=== PATIENT | female | born 1955 | race Caucasian/White ===

== ENCOUNTER → 2020-05-11 17:12 | Outpatient (CLI) | payer OTHER, MEDICAID, SELFPAY | PROVIDERS: Visit Provider Family Medicine | DX: E11.9 Type 2 diabetes mellitus without complications (principal); Z79.84 Long term (current) use of oral hypoglycemic drugs | CPT/HCPCS: 87086; 87088; 87186 ==

== ENCOUNTER → 2020-06-07 13:00 | Outpatient (CLI) | payer OTHER, MEDICAID, SELFPAY | PROVIDERS: PCP Family Medicine; Visit Provider Family Medicine | DX: R06.02 Shortness of breath (principal) ==

== ENCOUNTER 2020-06-07 13:37 | Emergency (ER) | payer MEDICARE, MEDICAID, SELFPAY ==
[2020-06-07 13:38] VITALS: BP 155/65; PULSE 89; RESP 23; TEMP 36.8; O2SAT 90; BMI 40.7
--- NOTE | 2020-06-07 13:39 | ECG_ITS ---
APPROVED REPORT Exam: Resting ECG HR:85 bpm ECG Measurements Heart Rate 85 AXES MS 118 P 59 QRSd 114 QRS 158 QT 394 T 45 QTc 468 <Conclusion> Electronic ventricular pacemaker Electronically signed by : Kishor Meek, 06/07/2020 18:36:04
--- NOTE | 2020-06-07 13:46 | XR_ITS ---
PROCEDURE: XR CHEST PORTABLE CLINICAL HISTORY: soa Shortness of air COMPARISON: No exams were available for comparison FINDINGS: Biventricular pacemaker with right atrial lead is present. There is a right subclavian MediPort catheter. The tip is in the region the SVC. The generator of the pacemaker overlies the left hilum obscuring this area. Normal heart size. Consolidation is present in the right lower lobe with increased density in the right infrahilar region. Degenerative changes are present in the shoulders. IMPRESSION: Right lower lobe pneumonia. Suggest following till clear as there is some nodular density in the right infrahilar region which could be related to masslike consolidation. Dictated by: Gerry Craig MD 06/07/2020 14:31 Gerry Craig MD in [place] 06/07/2020 14:31
--- NOTE | 2020-06-07 13:52 | HMH.EDGENADL ---
ED Disposition Clinical Impression: Near syncope Pneumonia Qualifiers: Pneumonia type: due to unspecified organism Laterality: right Lung location: lower lobe of lung Qualified Code(s): J18.9 - Pneumonia, unspecified organism Disposition: Home, Self-Care Condition on Discharge: Fair Instructions: DI for Syncope in Adults (Fainting), DI for Pneumonia -- Adult Additional Instructions: You have been evaluated for near syncope. Likely due to recent critical illness and pneumonia. Please continue taking antibiotics as prescribed. Stay hydrated. Rest. Follow-up with your primary care doctor. Return to the emergency department if you have any new or worsening symptoms. Referrals: Provider,Referral, [Primary Care Provider] - Time of Disposition: 14:59 - Critical Care Critical Care Time: No Attestation: On , the high probability of a clinically significant, sudden or life threatening deterioration of the following system(s) required my full and direct attention, intervention and personal management. The time I documented below is in addition to time spent performing reported procedures but includes the following listed in this critical care notation. Medical Decision Making - Medical Records Medical records reviewed: Yes: I reviewed the patient's medical records. - Dung Inquiry Pt receiving controlled substance: No Vital Signs: 06/07/20 13:38 Temperature 98.2 F Temperature Source Oral Pulse Rate [Right] 89 Respiratory Rate 23 Blood Pressure [Right Arm] 155/65 H Blood Pressure Mean [Right Arm] 95 02 Sat by Pulse Oximetry 90 L Oxygen Delivery Method Nasal Cannula Oxygen Flow Rate (LPM) 2 - Lab Data Lab Results 06/07/20 14:10: WBC 11.9 H, RBC 4.00 L, Hgb 13.2, Hct 40.7, MCV 101.7 H, MCH 33.0 H, MCHC 32.5, RDW 15.1, Plt Count 351, MPV 7.2 L, Neut % (Auto) 87.9 H, Lymph % (Auto) 10.6, [place] % (Auto) 0.9 L, Eos % (Auto) 0.5, Baso % (Auto) 0.1, Neut # (Auto) 10.4 H, Lymph # (Auto) 1.3, [place] # (Auto) 0.1, Eos # (Auto) 0.1, Baso # (Auto) 0.0, Total Counted 100, Neutrophils % (Manual) 83 H, Lymphocytes % (Manual) 15, Monocytes % (Manual) 1 L, Eosinophils % (Manual) 1, Platelet Estimate Normal, Anisocytosis 1+, Macrocytosis 1+ 06/07/20 14:10: Sodium 133 L, Potassium 4.9, Chloride 96 L, Carbon Dioxide 25, Anion Gap 16.9 H, BUN 32 H, Creatinine 1.20 H, Estimated Creat Clear 77, Estimated GFR 45 L, Est GFR ( Amer) 55 L, Glucose 277 H, Calcium 9.8, Total Bilirubin 0.8, AST 36, ALT 27, Alkaline Phosphatase 80, Troponin I < 0.01, Total Protein 7.3, Albumin 4.2, Globulin 3.1, Albumin/Globulin Ratio 1.4 06/07/20 14:10: Lactate 2.9 H 06/07/20 14:10: NT-Pro-B Natriuret Pep 122 06/07/20 14:37: Specimen Source Right brachial, O2 % 2l, ABG pH 7.55 H, ABG pCO2 25.5 L, ABG pO2 74.2 L, ABG HCO3 21.9 L, ABG Total CO2 22.6 L, ABG O2 Saturation 96, ABG Base Excess -0.5, Gerry Test Acceptable Result diagrams: 06/07/20 14:10 06/07/20 14:10 Orders (Tests/Meds): ORDERS Category Date Time Status Troponin I Q3H Lab 06/07/20 17:00 Ordered Troponin I Q3H Lab 06/07/20 20:00 Ordered Blood Culture Stat Micro 06/07/20 14:10 Received ABG [Arterial Blood Gas] Stat RT 06/07/20 14:15 Ordered ECG Request by /Mattie Stat Y 06/07/20 13:45 Ordered - ECG Data Tracing #1 Ventricularly paced rhythm with rate of 85 bpm. QRS 114, QTc 468. No significant abnormality. Medical Decision Narrative: In summary this is a 64-year-old female presenting to the emergency department after a near syncopal episode. Patient is clinically stable on arrival, O2 sat 90% on room air. Placed on home 2L. No tachycardia or tachypnea. Says she is feeling much better than she was at radiology. Plan to obtain CBC, CMP, chest x-ray, EKG, troponin profile. Laboratory results remarkable for elevated white count at 14 K, neutrophil predominance. Other laboratory results are generally unremarkable. EKG shows paced rhythm. Troponin not elevated.
[2020-06-07 14:27] LABS: Basophils % 0.1 % (0.1-2.0); Eosinophils # 0.1 K/mm3 (0.0-0.4); Eosinophils % 0.5 % (0.1-12.0); Hematocrit 40.7 % (37.0-47.0); Hemoglobin 13.2 g/dL (12.2-16.2); Lymphocytes # 1.3 K/mm3 (0.7-4.5); Lymphocytes % 10.6 % (10-50); Mean Corpuscular HGB Conc 32.5 g/dL (31.8-35.4); Mean Corpuscular Volume 101.7 fl (81-99); Mean Platelet Volume 7.2 fl (7.4-10.4); Monocytes # 0.1 K/mm3 (0.1-1.0); Monocytes % 0.9 % (1.7-9.3); Neutrophils # 10.4 K/mm3 (1.8-7.8); Neutrophils % 87.9 % (37.0-80.0); Platelet Count 351 K/mm3 (142-424); Red Cell Distribution Width 15.1 % (11.5-17.5); White Blood Count 11.9 K/mm3 (4.8-10.8)
[2020-06-07 14:28] LABS: MANUAL DIFFERENTIAL MANUAL DIFFERENTIAL (MANUAL DIFF)
[2020-06-07 14:36] LABS: Chloride 96 mmol/L (98-107); Potassium 4.9 mmoL/L (3.5-5.1); Sodium 133 mmol/L (136-145)
[2020-06-07 14:38] LABS: Blood Urea Nitrogen 32 mg/dl (7-17); Creatinine Clearance Estimated 77 mL/min (50-200); Estimated Glomerular Filt Rate 45 ml/min (>60); GFR (African American) 55 ML/MIN (>60)
[2020-06-07 14:39] LABS: ABG Base Excess -0.5 mmol/L (-2.4-2.3); ABG HCO3 21.9 mmhg (22.0-26.0); ABG Oxygen Saturation 96 % (90-100); ABG PCO2 25.5 mmhg (35.0-45.0); ABG PO2 74.2 mmhg (80-100); ABG TCO2 22.6 mmhg (23-27)
[2020-06-07 14:39] LABS: Alanine Aminotransferase 27 U/L (12-78); Albumin Level 4.2 g/dl (3.5-5.0); Albumin/Globulin Ratio 1.4 (1.1-1.8); Alkaline Phosphatase 80 U/L (38-126); Anion Gap 16.9 mEq/L (5-15); Aspartate Amino Transferase 36 U/L (14-36); Bilirubin,Total 0.8 mg/dl (0.2-1.3); Calcium 9.8 mg/dl (8.4-10.2); Carbon Dioxide 25 mmol/L (22.0-30.0); Globulin 3.1 g/dL (1.3-3.2); Glucose 277 mg/dl (74-100); Total Protein,Serum 7.3 g/dl (6.3-8.2)
[2020-06-07 14:40] LABS: Anisocytosis 1+; Eosinophils % 1 % (0-3); Lactic Acid 2.9 mmol/L (0.7-2.1); Lymphocytes % 15 % (10-50); Macrocytosis 1+; Monocytes % 1 % (2-9); Neutrophils % 83 % (42-76); Platelet Estimate Normal; Total Cells Counted 100
[2020-06-07 14:41] LABS: Allen's Test Acceptable; Oxygen 2L %; Source Right Brachial
[2020-06-07 14:42] LABS: ABG PH 7.55 mmol/L (7.35-7.45)
[2020-06-07 14:49] LABS: NT Pro Brain Natriuretic Pep. 122 pg/mL (0-125)
[2020-06-07 14:51] LABS: Troponin I < 0.01 ng/ml (0.00-0.034)
--- NOTE | 2020-06-07 15:14 | PC.NURSE ---
speaking to dr barry
[2020-06-07 15:39] VITALS: BP 117/65; PULSE 87; RESP 17; TEMP 36.7; O2SAT 93
[2020-06-07 18:23] LABS: Reflex Lactic Add Lactic Reflex
== END 2020-06-07 15:45 | disposition home or self-care (01) ==
PROVIDERS: Emergency Provider Emergency Medicine
DX: J18.9 Pneumonia, unspecified organism (principal); I10 Essential (primary) hypertension; E78.5 Hyperlipidemia, unspecified; I50.9 Heart failure, unspecified; E11.9 Type 2 diabetes mellitus without complications; Z99.81 Dependence on supplemental oxygen; Z79.899 Other long term (current) drug therapy; Z95.0 Presence of cardiac pacemaker; Z90.09 Acquired absence of other part of head and neck; Z90.49 Acquired absence of other specified parts of digestive tract
CPT/HCPCS: 71045; 80053; 82803; 83605; 83880; 84484; 85007; 85025; 87040; 93005; 99283; J1642

== ENCOUNTER 2020-06-08 14:40 | Observation (INO) | payer MEDICARE, MEDICAID, SELFPAY ==
--- NOTE | 2020-06-08 15:13 | PC.NURSE ---
Pt arrived to the floor at this time
[2020-06-08 15:32] VITALS: BP 110/59; PULSE 86; RESP 19; TEMP 37.3; O2SAT 90; BMI 45.6
[2020-06-08 15:49] VITALS: BP 115/62; PULSE 82; RESP 18; TEMP 37.2; O2SAT 90
--- NOTE | 2020-06-08 16:00 | XR_ITS ---
PROCEDURE: XR CHEST 2V CLINICAL HISTORY: pneumonia COMPARISON: CR XR CHEST PORTABLE from 06/07/2020 FINDINGS: The heart size is normal. There is a biventricular pacemaker present right atrial lead from left subclavian approach. There is consolidation in the lower lobe consistent with pneumonia not significantly changed. There is increased density in the left perihilar region which may be related to pneumonia. This is mostly obscured by the pacemaker generator. There is coarsening of the lung markings which could be related to superimposed chronic interstitial changes. Right subclavian MediPort catheter is present with the tip region the SVC No acute bony abnormalities. IMPRESSION: Overall no change in the bilateral pneumonia with chronic interstitial changes Dictated by: Gerry Craig MD 06/09/2020 05:54 Gerry Craig MD in [place] 06/09/2020 05:54
--- NOTE | 2020-06-08 17:24 | HMH.PULMCON ---
*Admission Date: 06/08/20 *Reason for consult:: Acute hypoxic respiratory failure *History of present illness: is a 63-year-old female with previous history of left-sided breast cancer, completed chemotherapy in January 2020, erosive osteoarthritis, back pain referred from primary clinic to get admitted because patient is having acute worsening respiratory failure. Further according patient stated she started having this breathing issues a month ago and was recently admitted to [facility] and she was there for almost 2 weeks during which she received IV antibiotics and essentially discharged home with doxycycline which she completed last Sunday. Patient felt better during the completion of antibiotics however she started getting worse to a point where she cannot form her activities of daily living. Patient complains of cough which is mostly dry without any productive phlegm. Patient stated her breathing gradually got worse. Patient also stated that she had a UTI and she hospital setting , and sedentary for almost a week. Patient is also on chronic oxygen therapy at 3 L at home. [facility] History Medical History: Reports:: Anxiety, Arrhythmia, Cancer, Congestive Heart Failure, Diabetes Mellitus Type 2, Home Oxygen, Hyperlipidemia, Hypertension, Internal Pacemaker Denies:: Diabetes Mellitus Type 1 *Have you ever received a pneumonia vaccine?: Yes *Have you received a flu vaccine this season?: No Other Medical History: Reports: Chemotherapy, Radiation Therapy Laterality Cases: Bilateral: Arthroscopy Knee, Tonsillectomy Other Surgeries: Yes: Cancer Surgery, Cholecystectomy, Pacemaker Amputation: No Fractures: No - *Social History Smoking Status: Never smoker Alcohol Intake: never Substance Use Type: denies use *Occupational Status:: other *Travel in the last 8 weeks: None - Psychiatric History Pschychiatric History:: Reports:: Anxiety Family Hx:: Cancer [facility] Pulmonology ROS - Review of Systems Review of systems:: unable to obtain, pertinent systems reviewed and negative unless documented below - Constitutional Reports body ache(s) - *Cardiovascular Reports excessive sweating, Reports shortness of breath, Reports generalized swelling, Reports leg swelling - *Respiratory Respiratory: Yes shortness of breath, Yes cough, Yes non-productive cough - *Gastrointestinal Gastrointestingal: Reports: system reviewed and no additional complaints, except as docu - *Musculoskeletal Musculoskeletal: Reports system reviewed and no additional complaints, except as docu Meds Home Medications Medication Instructions Recorded Confirmed Type allopurinol 300 mg tablet 300 mg PO DAILY 04/19/20 06/08/20 History aspirin 81 mg tablet,delayed 81 mg PO DAILY 04/19/20 06/08/20 History release carvedilol 25 mg tablet 25 mg PO BID 04/19/20 06/08/20 History lidocaine 2.5 %-prilocaine 2.5 % See Rx Instructions TOPICAL 04/19/20 06/08/20 Rx cream and lidocaine HCl 3.88 % .COMPLEX #175 g cream lidocaine HCl 2.75 % lotion 1 applic TOPICAL BID 04/19/20 06/08/20 History lisinopril 5 mg tablet 5 mg PO DAILY 04/19/20 06/08/20 History lorazepam 0.5 mg tablet 0.5 mg PO DAILY #30 tab 04/19/20 06/08/20 Rx pantoprazole 40 mg tablet,delayed 40 mg PO BID tab 04/19/20 06/08/20 History release potassium chloride 10 mEq 20 meq PO QID cap 04/19/20 06/08/20 History capsule,extended release torsemide 10 mg tablet 10 mg PO DAILY 04/19/20 06/08/20 History cetirizine 10 mg tablet 5 mg PO DAILY PRN 04/27/20 06/08/20 History metformin 500 mg tablet 500 mg PO BID #60 tab 04/27/20 06/08/20 Rx spironolactone 25 mg tablet 25 mg PO DAILY 04/27/20 06/08/20 History doxycycline hyclate 100 mg capsule 100 mg PO BID #14 cap 06/07/20 06/08/20 Rx oxycodone-acetaminophen 5 mg-325 1 tab PO Q6H PRN #120 tab 06/07/20 06/08/20 Rx mg tablet prednisone 20 mg tablet 10 mg PO BID tab 06/07/20 06/08/20 History Allergies Allergy/AdvReac Type Severity R
[2020-06-08 17:28] LABS: Basophils % 0.1 % (0.1-2.0); Eosinophils # 0.1 K/mm3 (0.0-0.4); Eosinophils % 0.6 % (0.1-12.0); Hematocrit 38.3 % (37.0-47.0); Hemoglobin 12.6 g/dL (12.2-16.2); Lymphocytes # 1.2 K/mm3 (0.7-4.5); Lymphocytes % 11.7 % (10-50); Mean Corpuscular HGB Conc 32.8 g/dL (31.8-35.4); Mean Corpuscular Hemoglobin 32.5 pg (27.0-31.2); Mean Corpuscular Volume 99.1 fl (81-99); Mean Platelet Volume 7.7 fl (7.4-10.4); Monocytes # 0.2 K/mm3 (0.1-1.0); Neutrophils # 8.6 K/mm3 (1.8-7.8); Neutrophils % 85.6 % (37.0-80.0); Platelet Count 334 K/mm3 (142-424); Red Blood Count 3.86 M/mm3 (4.20-5.40); Red Cell Distribution Width 14.9 % (11.5-17.5); White Blood Count 10.1 K/mm3 (4.8-10.8)
[2020-06-08 17:29] LABS: Chloride 95 mmol/L (98-107); Sodium 133 mmol/L (136-145)
[2020-06-08 17:30] LABS: ABG Base Excess -1.8 mmol/L (-2.4-2.3); ABG HCO3 22.2 mmhg (22.0-26.0); ABG Oxygen Saturation 94 % (90-100); ABG PH 7.45 mmol/L (7.35-7.45); ABG PO2 68.2 mmhg (80-100); ABG TCO2 23.2 mmhg (23-27)
[2020-06-08 17:32] LABS: Alanine Aminotransferase 26 U/L (12-78); Albumin Level 4.1 g/dl (3.5-5.0); Albumin/Globulin Ratio 1.4 (1.1-1.8); Alkaline Phosphatase 62 U/L (38-126); Aspartate Amino Transferase 43 U/L (14-36); Bilirubin,Total 0.6 mg/dl (0.2-1.3); Blood Urea Nitrogen 45 mg/dl (7-17); Calcium 9.9 mg/dl (8.4-10.2); Carbon Dioxide 23 mmol/L (22.0-30.0); Creatinine Clearance Estimated 40 mL/min (50-200); Estimated Glomerular Filt Rate 38 ml/min (>60); GFR (African American) 46 ML/MIN (>60); Glucose 244 mg/dl (74-100); Total Protein,Serum 7.1 g/dl (6.3-8.2)
[2020-06-08 17:35] LABS: Allen's Test Acceptable; Oxygen 4L %; Source Right Brachial
[2020-06-08 17:44] LABS: MANUAL DIFFERENTIAL MANUAL DIFFERENTIAL (MANUAL DIFF)
[2020-06-08 17:45] LABS: Magnesium 1.8 mg/dl (1.6-2.3)
[2020-06-08 17:46] LABS: Phosphorous 4.5 mg/dl (2.5-4.5)
--- NOTE | 2020-06-08 18:35 | HMH.HP ---
*Admission Date: 06/08/20 *Chief complaint: pneumonia with increasing dyspnea *History of present illness: Patient is well-known to me from previous practice, has multiple chronic comorbid issues including breast cancer and significant erosive osteoarthritis. She is also obese. She had spent about 7 days inpatient at [facility] in [place] for dyspnea. She has a significant cardiomyopathy, and at the point of her maximal decompensation had an EF around 15%. She was treated with a classic regimen of Coreg, Aldactone, and OMAIRA inhibitors and responded nicely to these treatments. She is actively followed by a trash collector supervisor in [facility] as well as the [facility] at . An AICD was placed at the point of her maximal decompensation. She made slow and steady improvement. Her admission at [facility] was prompted by dyspnea. She feels that she was overly diuresed, and became markedly weakened. She was also found to have a pneumonia while there, pulmonary was consulted there, and she was placed on a regimen including doxycycline. She was discharged on p.o. doxycycline. I saw the patient yesterday for ongoing dyspnea. A chest film demonstrated an infiltrative process on the right side. There was also a suggestion of a nodular opacity. She had been on a tapering dose of p.o. prednisone. In the office yesterday I gave her 1 g of Rocephin IM, 120 mg of Depo-Medrol IM, and continued the doxycycline for another week. I sent her to the hospital here for chest x-rays and lab work, and during the process of getting the chest x-ray she became markedly weak. She was then seen and evaluated in the emergency room. Brain natruretic peptide was unremarkable, ABGs showed a slight diminished PO2 without CO2 retention. She was sent home for ongoing medical management. Despite these measures she continued to be markedly dyspneic, and presented again today to my office with worsening symptoms. The decision was then made to admit her for further evaluation and treatment. Patient has a history of cancer of the left breast. Upon resection she had several nodes that were positive. A subsequent resection was performed. She received XRT to the left, along with a partial course of chemo which she tolerated poorly. In the office I heard crackles at her right base and mid field which corresponded to findings on the x-ray. She has been taking oxygen at home at 3 L/min. Due to her dyspnea and markedly weakened state we made the decision to admit her for more definitive treatment and further evaluation. [facility] History Medical History: Reports:: Anxiety, Arrhythmia, Cancer, Congestive Heart Failure, Diabetes Mellitus Type 2, Home Oxygen, Hyperlipidemia, Hypertension, Internal Pacemaker Denies:: Diabetes Mellitus Type 1 *Have you ever received a pneumonia vaccine?: Yes *Have you received a flu vaccine this season?: No Other Medical History: Reports: Chemotherapy, Radiation Therapy Laterality Cases: Bilateral: Arthroscopy Knee, Tonsillectomy Other Surgeries: Yes: Cancer Surgery, Cholecystectomy, Pacemaker Amputation: No Fractures: No - *Social History Smoking Status: Never smoker Alcohol Intake: never Substance Use Type: denies use *Occupational Status:: other *Travel in the last 8 weeks: None - Psychiatric History Pschychiatric History:: Reports:: Anxiety Family Hx:: Cancer Review of Systems - Constitutional Reports body ache(s), Reports fatigue, Reports weakness - Eyes Denies change in vision - ENT Denies abnormal hearing - *Cardiovascular Reports leg pain with activity, Reports shortness of breath with activity, Reports shortness of breath causing sudden awakening - *Respiratory Reports chest congestion, Reports cough - *Gastrointestinal Denies abdominal pain - *Genitourinary Denies painful urination - *Musculoskeletal Reports abnormal walking, Reports joint pain, Reports decreased muscle mass, Reports back pain, Reports joint s
[2020-06-08 18:45] LABS: Lymphocytes % 12 % (10-50); Monocytes % 2 % (2-9); Neutrophils % 86 % (42-76); Platelet Estimate Normal; RBC Morphology Normal; Total Cells Counted 100
[2020-06-08 19:22] LABS: Coronavirus 19 IgG Antibody Negative (Negative); Coronavirus 19 IgM Antibody Negative (Negative)
[2020-06-08 19:47] LABS: Adenovirus,PCR Not Detected (NotDetected); Bordetella Pertussis Not Detected (NotDetected); Chlamydophila Pneumoniae, PCR Not Detected (NotDetected); Coronavirus 229E Not Detected (NotDetected); Coronavirus NL63 Not Detected (NotDetected); Coronavirus OC43 Not Detected (NotDetected); Coronovirus HKU1,PCR Not Detected (NotDetected); Human Metapneumovirus Not Detected (NotDetected); Influenza A, PCR Not Detected (NotDetected); Influenza AH1, 2009 Not Detected (NotDetected); Influenza AH1, PCR Not Detected (NotDetected); Influenza AH3,PCR Not Detected (NotDetected); Influenza B, PCR Not Detected (NotDetected); Mycoplasma Pneumoniae, PCR Not Detected (NotDetected); Parainfluenza 1, PCR Not Detected (NotDetected); Parainfluenza 2, PCR Not Detected (NotDetected); Parainfluenza 3, PCR Not Detected (NotDetected); Parainfluenza 4, PCR Not Detected (NotDetected); Respiratory Syncytial Virus Not Detected (NotDetected); Rhinovirus/Enterovirus Not Detected (NotDetected)
[2020-06-08 20:00] VITALS: BP 121/75; PULSE 91; RESP 20; TEMP 36.9; O2SAT 98
--- NOTE | 2020-06-08 20:41 | PC.NURSE ---
Pt alert and oriented and able to make needs known. Pt continues on 4 L NC. Have accessed port in R chest per sterile technique and started IV in RFA. Labs sent to lab with IV stick and some had to be redrawn with port access. IV abt given per dec. VSS. CB in reach.
--- NOTE | 2020-06-08 22:41 | PC.NURSE ---
1949: Pt taken out of isolation precautions for pending covid results. IgG and IgM noted both negative at this time. Standard precautions are now in place. Visitor in room. 2002: Spoke with Ramone MOYER at this time. Irving bellamy brought to this RN's attention that pt could not have both CT angio and CT chest with contrast. Also pt's GFR noted at 38 and pt is a diabetic, therefore Irving bellamy noted pt is not a good candidate for contrast at this time. ordered CT chest w/o contrast only. All other orders to be d/c. 2025: Spoke with Ramone MOYER again at this time to make aware that pt refused to do the chest CT, stating she can not physically handle lying on the CT scanner with her back. Pt also states she will do a chest XR. okay with obtaining a chest XR at this time.
[2020-06-09] VITALS (9 sets, daily range): BP systolic 94–128; BP diastolic 50–72; PULSE 73–90; RESP 16–22; TEMP 36.6–37.1; O2SAT 90–98; BMI 36.5
--- NOTE | 2020-06-09 03:56 | PC.NURSE ---
Pt is alert and oriented x4. Perrla noted bilaterally. Hand business risk consultant equal in strength. Cap refill < 3 seconds. Pt has tolerated 4 lnc well this shift with no complaints of dyspnea. O2 sats noted wnl, 91-93% this am. Bilateral lungs noted clear t/o upon auscultation. Tolerates diet well. No N/V/D. Remains in standard precautions w/n negative pressure room. URP negative. This RN was able to infuse medications into port of right upper chest, but unable to draw blood from port for lab work. Pt tolerated lab draw stick well. Received from day shift report that pt was refusing all lab draws due to not wanting to be stuck numerous times. Pt also refused CT this shift, MD aware. CXR was obtained, results pending. Sputum collected and sent to lab, results pending. VSS. Hypotention noted this morning, 96/45. Pt stated her baseline B/P is low. Remains asymptomatic. Remains safe. Call light within reach. Will continue to monitor.
--- NOTE | 2020-06-09 06:46 | PC.NURSE ---
Encouraged use of incentive spirometer this am Q1h while awake. Pt verbalized understanding.
--- NOTE | 2020-06-09 07:30 | P.CONPHA_ITS ---
[facility] Pharmacy VTE Monitoring - Patient Demographics Admission date: 06/08/20 Report Date: 06/09/20 Time: 07:30 Allergies/Adverse Reactions: Patient Allergies sodium acid pyrophosphate Allergy (Severe, Verified 06/08/20 13:46) Chest Pain ondansetron [From Zofran] Allergy (Mild, Verified 06/08/20 13:46) Height: 1.73 m Weight: 109.401 kg - VTE Risk Labs: VTE Related Lab Results Hgb 12.6 g/dL (12.2-16.2) 06/08/20 17:00 Hct 38.3 % (37.0-47.0) 06/08/20 17:00 Plt Count 334 K/mm3 (142-424) 06/08/20 17:00 BUN 45 mg/dl (7-17) H D 06/08/20 17:00 Creatinine 1.40 mg/dl (0.52-1.04) H 06/08/20 17:00 Estimated Creat Clear 40 mL/min (50-200) 06/08/20 17:00 - Prophylaxis VTE Prophylaxis Ordered?: Yes Types of VTE Prophylaxis: TEDS Knee High Location of Applied Device: Bilateral Lower Extremeties - VTE Diagnosis Confirmed Treatment or plan recommended: Continue Current Treatment
--- NOTE | 2020-06-09 07:36 | PC.NURSE ---
Pt states she is not a diabetic and does not understand why she is being taken off a regular diet and placed on a diabetic diet this am.
--- NOTE | 2020-06-09 10:18 | HMH.PHACONS ---
- Pharmacy Consult Date: 06/09/20 Time: 10:19 Referring provider: DR. PHOENIX/DR. LAZAR Reason for Consult:: VANCOMYCIN DOSING Allergies and ADEs:: Allergies Allergy/AdvReac Type Severity Reaction Status Date / Time sodium acid pyrophosphate Allergy Severe Chest Pain Verified 06/08/20 13:46 ondansetron [From Zofran] Allergy Mild Verified 06/08/20 13:46 Home Medications:: Home Medications Medication Instructions Recorded Confirmed Type allopurinol 300 mg tablet 300 mg PO DAILY 04/19/20 06/08/20 History aspirin 81 mg tablet,delayed 81 mg PO DAILY 04/19/20 06/08/20 History release carvedilol 25 mg tablet 25 mg PO BID 04/19/20 06/08/20 History lidocaine HCl 2.75 % lotion 1 applic TOPICAL NEEDED PRN 04/19/20 06/08/20 History lisinopril 5 mg tablet 5 mg PO BID 04/19/20 06/08/20 History pantoprazole 40 mg tablet,delayed 10 mg PO BID tab 04/19/20 06/08/20 History release potassium chloride 10 mEq 20 meq PO QID cap 04/19/20 06/08/20 History capsule,extended release torsemide 10 mg tablet 10 mg PO DAILY 04/19/20 06/08/20 History spironolactone 25 mg tablet 12.5 mg PO DAILY 04/27/20 06/08/20 History oxycodone-acetaminophen 5 mg-325 1 tab PO Q6H PRN #120 tab 06/07/20 06/08/20 Rx mg tablet prednisone 20 mg tablet 10 mg PO BID tab 06/07/20 06/08/20 History Doxycycline Hyclate [Vibramycin 100 mg PO BID 06/08/20 06/08/20 History 100mg Capsule] LORazepam [Lorazepam] 1 mg PO DAILY PRN 06/08/20 06/08/20 History Metformin HCl [Glucophage] 500 mg PO BID 06/08/20 06/08/20 History Mometasone/Formoterol [Dulera 100 100 mcg PO QID 06/08/20 06/08/20 History Mcg-5 Mcg Inhaler] Multivit-Min/Iron Fum/Folic AC 1 each PO DAILY 06/08/20 06/08/20 History [Latek-Fkjthno-Plzxxubn Tablet] Height: 1.73 m Weight: 109.401 kg Laboratory Results:: Laboratory Results - last 24 hr 06/08/20 17:00: WBC 10.1, RBC 3.86 L, Hgb 12.6, Hct 38.3, MCV 99.1 H, MCH 32.5 H, MCHC 32.8, RDW 14.9, Plt Count 334, MPV 7.7, Neut % (Auto) 85.6 H, Lymph % (Auto) 11.7, [place] % (Auto) 2.0, Eos % (Auto) 0.6, Baso % (Auto) 0.1, Neut # (Auto) 8.6 H, Lymph # (Auto) 1.2, Bradley # (Auto) 0.2, Eos # (Auto) 0.1, Baso # (Auto) 0.0, Total Counted 100, Neutrophils % (Manual) 86 H, Lymphocytes % (Manual) 12, Monocytes % (Manual) 2, Platelet Estimate Normal, RBC Morphology Normal 06/08/20 17:00: Sodium 133 L, Potassium 5.0, Chloride 95 L, Carbon Dioxide 23, Anion Gap 20.0 H, BUN 45 H D, Creatinine 1.40 H, Estimated Creat Clear 40, Estimated GFR 38 L, Est GFR ( Amer) 46 L, Glucose 244 H, Calcium 9.9, Total Bilirubin 0.6, AST 43 H, ALT 26, Alkaline Phosphatase 62, Total Protein 7.1, Albumin 4.1, Globulin 3.0, Albumin/Globulin Ratio 1.4 06/08/20 17:00: Magnesium 1.8 06/08/20 17:00: Phosphorus 4.5 06/08/20 17:29: Specimen Source Right brachial, O2 % 4l, ABG pH 7.45, ABG pCO2 33.0 L, ABG pO2 68.2 L, ABG HCO3 22.2, ABG Total CO2 23.2, ABG O2 Saturation 94, ABG Base Excess -1.8, Gerry Test Acceptable 06/08/20 18:10: SARS-CoV-2 IgG Ab (Rapid) Negative, SARS-CoV-2 IgM Ab (Rapid) Negative 06/08/20 19:37: Chlamy pneumoniae PCR Not detected, Adenovirus (PCR) Not detected, B. pertussis DNA (PCR) Not detected, Coronavirus OC43 (PCR) Not detected, Coronavirus HKU1 (PCR) Not detected, Coronavirus 229E (PCR) Not detected, Coronavirus NL63 (PCR) Not detected, Human Metapneumovir PCR Not detected, Influenza A (H1) PCR Not detected, Influ A (H1N1/09) PCR Not detected, Influenza A (H3) PCR Not detected, Influenza Type A (PCR) Not detected, Influenza Type B (PCR) Not detected, M. pneumoniae (PCR) Not detected, Parainfluenza 1 (PCR) Not detected, Parainfluenza 2 (PCR) Not detected, Parainfluenza 3 (PCR) Not detected, Parainfluenza 4 (PCR) Not detected, RSV (PCR) Not detected, Entero/Rhino (PCR) Not detected Medical History: Reports:: Anxiety, Arrhythmia, Cancer, Congestive Heart Failure, Diabetes Mellitus Type 2, Home Oxygen, Hyperlipidemia, Hypertension, Internal Pacemaker Denies:: Diabetes Mellitus
[2020-06-09 10:24] LABS: Lactate Dehydrogenase 358 U/L (313-618)
--- NOTE | 2020-06-09 11:25 | HMH.PHAINT ---
MEDICATION RECONCILIATION COMPLETED ON PATIENT USING EXTERNAL FILL HISTORY FROM PHARMACY, LIST THAT PATIENT HAD, AND PATIENT INTERVIEW. -ANA PAULA ALCANTAR, SRINID
--- NOTE | 2020-06-09 12:35 | HMH.CNCARD ---
History of Present Illness Consult date: 06/09/20 Requesting physician: Ray Pack Consult reason: shortness of breath Chief complaint: SOB History of present illness: This is a 64-year-old white female who was admitted to the hospital with worsening shortness of breath. She states that her shortness of breath started about 2 or 3 weeks ago. She was recently admitted as an inpatient at [facility] in [place] due to her shortness of breath. 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 He states that she had viral cardiomyopathy approximately 8 years ago. Her ejection fraction at its lowest was 9%. She states that at her hospitalization in [place] recently she was told her ejection fraction was 50% but she does not believe that. She states that her ejection fraction has not been that high in 8 years and she thinks that her ejection fraction is around 30 or 35%. The patient has been treated with Coreg, Aldactone, torsemide and lisinopril for her cardiomyopathy. She states that she has to be on her carvedilol where she starts to feel bad. She states that she was not given a dose last night or this morning and would like to be restarted on this medication. The patient was diuresed while at [facility] and she states that they also started her on doxycycline IV and when she was given the doxycycline she felt significantly better. She was discharged home on oral doxycycline and her last dose was last Sunday. After her last dose of doxycycline she started to feel bad again. She states that she was seen by Dr. Pack in an outpatient basis and came to the emergency department. Her BNP and labs were essentially unremarkable and she was discharged from the emergency department. She went back to Dr. Pack' office the next day with continued and worsening shortness of breath for which she was admitted to the hospital. The patient states that she is unable to lie flat because of her shortness of breath. She feels like she was over diuresed at [place] and is now dehydrated. She is refusing her diuretics because she thinks she was over diuresed and needs fluids. She states that the shortness of breath and symptoms she is experiencing now are not her normal heart failure symptoms. She thinks that her shortness of breath is from the pneumonia and her dehydration. She denies any chest pain or pressure. She denies any fever, chills, nausea, vomiting. The patient does state that she has had multiple heart caths in the past and has no coronary artery disease. She does have a history of breast cancer. Her troponin and BNP were negative in the emergency department on the day prior to admission. [facility] History I have reviewed the patient's past medical history: Yes Medical History: Reports:: Anxiety, Arrhythmia, Cancer, Congestive Heart Failure, Diabetes Mellitus Type 2, Home Oxygen, Hyperlipidemia, Hypertension, Internal Pacemaker (AICD) Denies:: Diabetes Mellitus Type 1 *Have you ever received a pneumonia vaccine?: Yes *Have you received a flu vaccine this season?: No Other Medical History: Reports: Chemotherapy, Radiation Therapy Laterality Cases: Bilateral: Arthroscopy Knee, Tonsillectomy Other Surgeries: Yes: Cancer Surgery, Cholecystectomy, Pacemaker Amputation: No Fractures: No - *Social History Last grade of school completed: 11th or 12th Smoking Status: Never smoker Alcohol Intake: never Substance Use Type: denies use *Occupational Status:: other *Travel in the last 8 weeks: None - Psychiatric History Pschychiatric History:: Reports:: Anxiety Family Hx:: Cancer Meds Home Medications Medication Instructions Recorded Confirmed Type allopurinol 300 mg tablet 300 mg PO DAILY 04/19/20 06/08/20 History aspirin 81 mg tablet,delayed 81 mg PO DAILY 04/19/20 06/08/20 History release carvedilol 25 mg tablet 25 mg PO BID 04/19/20 06/08/20 History lidocaine HCl 2.75 % lotion 1 applic TOPIC
--- NOTE | 2020-06-09 12:47 | CA_ITS ---
APPROVED REPORT EXAM: Comprehensive 2D, Doppler, and color-flow Echocardiogram Medication Aide: Erma Gramajo RT(R) Ht: 5 ft 11 in Wt: 236lbs BSA: 2.26 BP: 113/64 mmHg Indications: HTN, DM, SOB, [place], obesity, hyperlipidemia, CHF, arrhythmia, AICD, home O2, hx CM 2D Dimensions LVOT 1.91 cm (M/F) 1.5-2.5 M-Mode Dimensions RVDd 2.40 cm (0.9-2.6) LVDd 5.29 cm (3.5-5.7) LVDs 4.53 cm (3.5-5.7) IVSd 0.91 cm (0.6-1.1) PWd 0.99 cm (0.6-1.1) EF (Teich) 30.30% FS 14.40% EDV (Teich) 134.80 mL ESV (Teich) 93.90 mL LV Diastology E/A Ratio 0.85 Mitral Valve MV A Velocity 106.00 (40-130 cm/s) Left Ventricle Left atrium is mildly enlarged, left ventricle is normal size, mild concentric left ventricular hypertrophy, visually estimated ejection fraction 45 to 50%, there is abnormal septal motion, diastolic parameters are inconclusive. Right Ventricle Right atrium and right ventricular qualitatively mildly enlarged with normal contractility, there is an AICD lead seen in the right ventricle. Aortic Valve Aortic valve is minimally thickened and fibrosed, there is no aortic stenosis or aortic insufficiency. Mitral Valve Mitral valve is grossly normal, there is mild mitral regurgitation. Tricuspid Valve Tricuspid valve grossly normal, there is mild tricuspid regurgitation, tricuspid regurgitation jet velocity is inadequate for calculation of the right ventricular systolic pressure. Pulmonic Valve Pulmonic valve is poorly visualized. Great Vessels Aortic root is normal size. Pericardium No significant pericardial effusion noted. Conclusion 1. Mild biatrial enlargement, normal left ventricular size, mild concentric left ventricular hypertrophy, visually estimated ejection fraction 45 to 50%, there is abnormal septal motion, diastolic parameters are inconclusive. 2. Mild mitral and tricuspid regurgitation. 3. No significant pericardial effusion noted. Electronically signed by : Galdino Logan, 06/10/2020 11:31:52
--- NOTE | 2020-06-09 14:46 | HMH.ACPN2 ---
Internal Medicine - PN: Subj *Date: 06/09/20 *Time: 17:27 Interval history: 64-year-old female patient sitting on side of bed respirations easy even oxygen is on at 4 L per nasal cannula. She is encouraged to be out of bed for all meals and up in chair most days Cardiology has seen and recommends: 1. The patient was admitted to the hospital with worsening shortness of breath. She states that she was recently treated at [facility] for CHF and she believes she was over diuresed. She also had pneumonia and was sent home on antibiotics. When her oral antibiotics ran out her symptoms recurred. Her chest x-ray does show bilateral pneumonia with chronic interstitial changes. He is getting antibiotics and breathing treatments per her primary care provider. 2. The patient is adamant that she feels like she is dehydrated. She states that she was recently in [facility] and they over diuresed her. She told me that she refused her torsemide this morning because she does not think she needs more diuresis at this time. She states that she feels like she needs more fluid because she feels better when she is getting IV fluids. We will discontinue her torsemide. She did have a normal BNP in the emergency department. Her labs do show some dehydration. We will hold her torsemide and see how her symptoms are tomorrow. 3. We will repeat her echocardiogram at this time to reevaluate her LV function and see if she has any signs of CHF on her echocardiogram. 4. She has had a CT of the chest ordered to rule out a PE. The patient states that she cannot lie flat and is refusing to do the CT of the chest at this time. 5. The patient is adamant that she needs to be on her carvedilol. She states that she has been titrating her carvedilol for quite some time with her metallurgical engineer and she feels better when she takes this medication. Her blood pressure is on the lower side. We will restart her carvedilol per the patient's request and stop her lisinopril since her blood pressure is on the low side. The patient is agreeable to this. 6. I have discussed with the patient that if her symptoms are worse tomorrow or her echocardiogram shows signs of heart failure then we may need to restart her diuretics. She thinks this is reasonable and would like to try not getting her diuretics to see how this makes her feel. 7. Blood pressure is acceptable at this time. 8. Her LDL goal is less than 100. 9. Further recommendations will be made pending the patient's response to treatment and the results of her echocardiogram later today. Exam Vital signs and Labs for Last 24 Hours: Temp Pulse Resp BP Pulse Ox 98.1 F 86 18 113/64 93 L 06/09/20 07:34 06/09/20 09:32 06/09/20 09:32 06/09/20 09:32 06/09/20 07:34 Laboratory Results - last 24 hr 06/08/20 17:00: WBC 10.1, RBC 3.86 L, Hgb 12.6, Hct 38.3, MCV 99.1 H, MCH 32.5 H, MCHC 32.8, RDW 14.9, Plt Count 334, MPV 7.7, Neut % (Auto) 85.6 H, Lymph % (Auto) 11.7, [place] % (Auto) 2.0, Eos % (Auto) 0.6, Baso % (Auto) 0.1, Neut # (Auto) 8.6 H, Lymph # (Auto) 1.2, [place] # (Auto) 0.2, Eos # (Auto) 0.1, Baso # (Auto) 0.0, Total Counted 100, Neutrophils % (Manual) 86 H, Lymphocytes % (Manual) 12, Monocytes % (Manual) 2, Platelet Estimate Normal, RBC Morphology Normal 06/08/20 17:00: Sodium 133 L, Potassium 5.0, Chloride 95 L, Carbon Dioxide 23, Anion Gap 20.0 H, BUN 45 H D, Creatinine 1.40 H, Estimated Creat Clear 40, Estimated GFR 38 L, Est GFR ( Amer) 46 L, Glucose 244 H, Calcium 9.9, Total Bilirubin 0.6, AST 43 H, ALT 26, Alkaline Phosphatase 62, Total Protein 7.1, Albumin 4.1, Globulin 3.0, Albumin/Globulin Ratio 1.4 06/08/20 17:00: Magnesium 1.8 06/08/20 17:00: Phosphorus 4.5 06/08/20 17:29: Specimen Source Right brachial, O2 % 4l, ABG pH 7.45, ABG pCO2 33.0 L, ABG pO2 68.2 L, ABG HCO3 22.2, ABG Total CO2 23.2, ABG O2 Saturation 94, ABG Base Excess -1.8, Gerry Test Acceptable 06/08/20 18:10: SARS-CoV-2 IgG
--- NOTE | 2020-06-09 18:36 | PC.NURSE ---
Pt was able to rest some this shift, shes states that is the most she has slept at one time in a long time. Has been treated for chronic pain per MAR. Remains on 4 L O2 per nasal cannula. No s/s of resp distress noted. Ambulates independently w/o safety concerns. Refuses Teds she states because of her gout. Currently sitting up in chair using tablet. No needs voiced.
--- NOTE | 2020-06-09 19:09 | PC.NURSE ---
report given to jesus
[2020-06-10] VITALS (8 sets, daily range): BP systolic 95–128; BP diastolic 42–71; PULSE 86–103; RESP 18–26; TEMP 36.4–36.9; O2SAT 90–93; BMI 37.0
--- NOTE | 2020-06-10 02:42 | PC.NURSE ---
A&0X4. PT HAS TOLERATED 4L NC WELL THROUGHOUT SHIFT. RESPIRATIONS REGULAR AND UNLABORED. LUNG SOUNDS BILATERALLY CLEAR. OCCASIONAL NONPRODUCTIVE COUGH NOTED. NO EDEMA NOTED. HAND OUTDOOR FITNESS TRAINER EQUAL. +2 PULSES NOTED THROUGHOUT. ACTIVE BOWEL SOUNDS HEARD IN ALL 4 QUADRANTS. SOFT AND NONTENDER ABDOMEN. NO BM REPORTED THUS FAR. PT AMBULATES INDEPENDENTLY TO THE RESTROOM AND MOVES INDEPENDENTLY IN BED. PORT NOTED TO R UPPER CHEST W NS INFUSING AT 50ML/HR. PT REPORTED PAIN ONCE IN HER BACK RATING IT A 7/10 AND PERCOCET WAS ADMINISTERED. ON REASSESSMENT, PT WAS RESTING W EYES CLOSED. CEFEPIME WAS ADMINISTERED THIS SHIFT AND PT TOLERATED WELL. PT HAS RESTED WELL THIS SHIFT. PT HAS REMAINED AFEBRILE THUS FAR. PT IS CURRENTLY LYING IN BED SLEEPING W CALL LIGHT WITHIN REACH. BED IN LOWEST POSITION. VSS. NO CONCERNS AT THIS TIME. WILL CONTINUE TO MONITOR.
[2020-06-10 08:01] LABS: Basophils % 0.4 % (0.1-2.0); Eosinophils # 0.1 K/mm3 (0.0-0.4); Eosinophils % 0.9 % (0.1-12.0); Hematocrit 36.1 % (37.0-47.0); Hemoglobin 11.5 g/dL (12.2-16.2); Lymphocytes # 1.3 K/mm3 (0.7-4.5); Lymphocytes % 14.2 % (10-50); Mean Corpuscular HGB Conc 31.7 g/dL (31.8-35.4); Mean Corpuscular Hemoglobin 32.4 pg (27.0-31.2); Mean Corpuscular Volume 102.3 fl (81-99); Mean Platelet Volume 7.8 fl (7.4-10.4); Monocytes # 0.4 K/mm3 (0.1-1.0); Monocytes % 4.2 % (1.7-9.3); Neutrophils # 7.2 K/mm3 (1.8-7.8); Neutrophils % 80.4 % (37.0-80.0); Platelet Count 291 K/mm3 (142-424); Red Blood Count 3.53 M/mm3 (4.20-5.40); Red Cell Distribution Width 15.2 % (11.5-17.5); White Blood Count 8.9 K/mm3 (4.8-10.8)
[2020-06-10 08:09] LABS: Anion Gap 12.4 mEq/L (5-15); Blood Urea Nitrogen 36 mg/dl (7-17); Calcium 9.2 mg/dl (8.4-10.2); Carbon Dioxide 27 mmol/L (22.0-30.0); Chloride 99 mmol/L (98-107); Creatinine Clearance Estimated 82 mL/min (50-200); Estimated Glomerular Filt Rate 45 ml/min (>60); GFR (African American) 55 ML/MIN (>60); Glucose 196 mg/dl (74-100); Potassium 4.4 mmoL/L (3.5-5.1); Sodium 134 mmol/L (136-145)
--- NOTE | 2020-06-10 09:22 | CA_ITS ---
APPROVED REPORT Bilateral Lower Extremity Venous Study for [employer]: CT Indications Shortness of breath R/O DVT Vein Imaging CFV (R): Not Visualized SFJ (R): Not Visualized FEM (R): compressive, spontaneous, phasic, augmentation POP (R): compressive, spontaneous, phasic, augmentation DFV (R): compressive, spontaneous, phasic, augmentation PTV (R): compressive, spontaneous, phasic, augmentation GSV (R): compressive, spontaneous, phasic, augmentation SSV (R): Not Visualized Peroneals (R):compressive, spontaneous, phasic, augmentation GAS (R): compressive, spontaneous, phasic, augmentation CFV (L): Not Visualized SFJ (L): Not Visualized FEM (L): compressive, spontaneous, phasic, augmentation POP (L): compressive, spontaneous, phasic, augmentation DFV (L): compressive, spontaneous, phasic, augmentation PTV (L): compressive, spontaneous, phasic, augmentation GSV (L): compressive, spontaneous, phasic, augmentation SSV (L): Not Visualized Peroneals (L):compressive, spontaneous, phasic, augmentation GAS (L): compressive, spontaneous, phasic, augmentation Findings Bilateral venous doppler negative for DVT/SVT. Vessels fully compressible. No reflux noted. Conclusion Bilateral venous doppler negative for DVT/SVT. Vessels fully compressible. No reflux noted. Electronically signed by : Gerry Craig MD 06/11/2020 15:54:30
--- NOTE | 2020-06-10 09:34 | CT_ITS ---
PROCEDURE: CT ANGIO CHEST CLINCIAL INDICATION: R/O PE Extreme shortness of air, history of breast cancer COMPARISON: CR XR CHEST 2V from 06/10/2020 TECHNIQUE: IV Contrast: 70ML OPTIRAY 350 Axial images obtained with sagittal and coronal reformats. All CT scans at the facility use one or more dose reduction, viz: automated exposure control, ma/kV adjustment per patient size (including targeted exams where dose is matched to indication, i.e. head), or iterative reconstruction technique. FINDINGS: Study is somewhat limited as the patient had to be scanned on her right side due to extreme anxiety and shortness of air.. There is resultant elevation of the right hemidiaphragm with atelectatic changes in the right lower lobe. No evidence of aortic aneurysm or dissection. No evidence of pulmonary embolus. No evidence of pericardial effusion. There is extensive abnormal soft tissue density in the mediastinum within the pretracheal/precarinal and subcarinal area and extending along the hilum on both sides. This is manifest by increased soft tissue density with rim like areas of enhancement consistent with extensive adenopathy. There is dense consolidation in the left upper lobe medially and anteriorly and within the inferior aspect of the lingula. Dense consolidation is also present in the right middle lobe laterally. There is a small amount fluid in the major fissure on the right. Less dense consolidation with interstitial thickening is noted in both upper lobes with fluid in the right minor fissure. There are scattered noncalcified nodules in the right upper lobe and right lower lobe with the largest noncalcified nodule in the right lower lobe at 2 cm. These findings are suspicious for metastatic disease. There are several noncalcified pulmonary nodules in the left lower lobe is well suspicious for metastatic disease. There is a small posterior layering left pleural effusion. There has been prior left-sided mastectomy. Left adrenal gland is slightly enlarged but maintains an adrenal form shape. No space-occupying lesions are with evident within the liver with over 2/3 of the liver visualized. There are degenerative changes in the thoracic spine with no lytic or blastic lesions evident. There is a bipolar pacemaker present from left subclavian approach and there is a MediPort catheter present from the right subclavian approach with the tip in the region of the SVC. IMPRESSION: 1. Extensive mediastinal and hilar adenopathy as well as multiple noncalcified bilateral pulmonary nodules consistent with metastatic disease 2. Multifocal bilateral pneumonia with bilateral effusions 3. No evidence of pulmonary embolus Dictated by: Gerry Craig MD 06/10/2020 14:28 Gerry Craig MD in [place] 06/10/2020 14:28
--- NOTE | 2020-06-10 09:57 | PC.NURSE ---
entered pt's room t induce a sputum. Nurse and two students there also. She and I talked about what I needed to do and she began to cry stating It was all too much to handle. I told her it was ok and asked if she would prefer to do it later and said yes. rt will return later today.
--- NOTE | 2020-06-10 10:54 | HMH.ACPN2 ---
Internal Medicine - PN: Subj *Date: 06/10/20 *Time: 13:03 Interval history: afebrile during the night sputum gram stain neg on broad spectrum abx sats in low 90's cxr revd pneumonia w/o much interval change merits another imaging today refused ct on admit strongly encouraged her to attempt cta she's apprehensive echo report pending from [facility] echo done most recently at [facility] didn't look terrible ef around 55 pct trace regurg aicd in place renal labs better Exam Vital signs and Labs for Last 24 Hours: Temp Pulse Resp BP Pulse Ox 97.5 F L 100 H 22 95/58 L 91 L 06/10/20 07:50 06/10/20 07:50 06/10/20 07:50 06/10/20 07:50 06/10/20 07:50 Laboratory Results - last 24 hr 06/10/20 07:50: WBC 8.9, RBC 3.53 L, Hgb 11.5 L, Hct 36.1 L, MCV 102.3 H, MCH 32.4 H, MCHC 31.7 L, RDW 15.2, Plt Count 291, MPV 7.8, Neut % (Auto) 80.4 H, Lymph % (Auto) 14.2, [place] % (Auto) 4.2, Eos % (Auto) 0.9, Baso % (Auto) 0.4, Neut # (Auto) 7.2, Lymph # (Auto) 1.3, [place] # (Auto) 0.4, Eos # (Auto) 0.1, Baso # (Auto) 0.0 06/10/20 07:50: Sodium 134 L, Potassium 4.4, Chloride 99, Carbon Dioxide 27, Anion Gap 12.4, BUN 36 H, Creatinine 1.20 H, Estimated Creat Clear 82, Estimated GFR 45 L, Est GFR ( Amer) 55 L, Glucose 196 H, Calcium 9.2 I & O for Last 24 hours: Intake & Output 06/07/20 06/08/20 06/09/20 06/10/20 23:59 23:59 23:59 23:59 Intake Total 360 / 360 1237 / 1237 1014 / 1014 Output Total 300 / 300 Balance 360 / 360 1237 / 1237 714 / 714 Weight 300 lb 2 oz 241 lb 3 oz 244 lb 5 oz Microbiology Reports for the Last 24 Hours: Microbiology 06/08/20 23:01 Sputum - Expectorated Sputum Gram Stain - Final 06/08/20 23:01 Sputum - Expectorated Sputum Sputum Culture - Preliminary - Constitutional no acute distress, chronically ill appearing, cooperative - *Routine HEENT Exam Head: Present: normocephalic, atraumatic Eye: Absent: conjunctival icterus ENT: Present: mucous membranes moist - *Routine Neck Exam Present: supple. Absent: JVD - *Routine Respiratory Exam Present: crackles. Absent: accessory muscle use, wheezes - *Routine Cardiovascular Exam Present: RRR - *Routine Abdominal Exam Present: soft - *Routine Extremities Exam Absent: cyanosis, clubbing, edema, calf tenderness, pallor - *Routine Skin Exam Present: intact. Absent: cyanosis, jaundice - *Routine Neurological Exam Present: alert, oriented X3 - Routine Psychiatric Exam Present: anxious Assessment and Plan (1) Pneumonia Current visit: No Status: Acute Qualifiers: Pneumonia type: due to unspecified organism Laterality: right Lung location: lower lobe of lung Qualified Code(s): J18.9 - Pneumonia, unspecified organism Category: Medical Code(s): J18.9 - Pneumonia, unspecified organism (2) Breast cancer Current visit: No Status: Chronic Qualifiers: Breast location: upper outer quadrant of breast Estrogen receptor status: unspecified Patient sex: female Laterality: left Qualified Code(s): C50.412 - Malignant neoplasm of upper-outer quadrant of left female breast Category: Medical Code(s): C50.919 - Malignant neoplasm of unspecified site of unspecified female breast (3) Chronic pain Current visit: No Status: Chronic Qualifiers: Chronic pain type: other chronic postprocedural pain Qualified Code(s): G89.28 - Other chronic postprocedural pain Category: Medical Code(s): G89.29 - Other chronic pain (4) Diabetes Current visit: No Status: Chronic Qualifiers: Diabetes mellitus type: type 2 Category: Medical Code(s): E11.9 - Type 2 diabetes mellitus without complications (5) Erosive osteoarthritis of multiple sites Current visit: No Status: Chronic Category: Medical Code(s): M15.4 - Erosive (osteo)arthritis (6) Gout Current visit: No Status: Chronic Qualifiers: Gout site: unspecified site Gout etiology: unspecified cause
--- NOTE | 2020-06-10 11:54 | HMH.PNCARD ---
<Barry Bates - Last Filed: 06/10/20 12:03> Subjective Date: 06/10/20 Time: 11:54 Principal diagnosis: SOA Interval history: 64 yo WF in bed nearly flat in NAD. Initially sleeping. Discussed results of echo with EF 45% along with lab results and consideration of restarting lisinopril tomorrow if BP and Cr improved. Exam Vital signs and Labs for Last 24 Hours: Temp Pulse Resp BP Pulse Ox 98.5 F 86 18 128/45 L 90 L 06/10/20 11:24 06/10/20 11:24 06/10/20 11:24 06/10/20 11:24 06/10/20 11:24 Laboratory Results - last 24 hr 06/10/20 07:50: WBC 8.9, RBC 3.53 L, Hgb 11.5 L, Hct 36.1 L, MCV 102.3 H, MCH 32.4 H, MCHC 31.7 L, RDW 15.2, Plt Count 291, MPV 7.8, Neut % (Auto) 80.4 H, Lymph % (Auto) 14.2, [place] % (Auto) 4.2, Eos % (Auto) 0.9, Baso % (Auto) 0.4, Neut # (Auto) 7.2, Lymph # (Auto) 1.3, [place] # (Auto) 0.4, Eos # (Auto) 0.1, Baso # (Auto) 0.0 06/10/20 07:50: Sodium 134 L, Potassium 4.4, Chloride 99, Carbon Dioxide 27, Anion Gap 12.4, BUN 36 H, Creatinine 1.20 H, Estimated Creat Clear 82, Estimated GFR 45 L, Est GFR ( Amer) 55 L, Glucose 196 H, Calcium 9.2 I & O for Last 24 hours: Intake & Output 06/07/20 06/08/20 06/09/20 06/10/20 11:59 11:59 11:59 11:59 Intake Total 840 / 840 1771 / 1771 Output Total 300 / 300 Balance 840 / 840 1471 / 1471 Weight 241 lb 3 oz 244 lb 5 oz Microbiology Reports for the Last 24 Hours: Microbiology 06/08/20 23:01 Sputum - Expectorated Sputum Gram Stain - Final 06/08/20 23:01 Sputum - Expectorated Sputum Sputum Culture - Preliminary - *Routine Respiratory Exam Present: rhonchi, diminished air movement - *Routine Cardiovascular Exam Present: RRR Progress Note: A&P (1) Pneumonia Status: Acute Current Visit: No (2) Breast cancer Status: Chronic Current Visit: No (3) Chronic pain Status: Chronic Current Visit: No (4) Diabetes Status: Chronic Current Visit: No (5) Erosive osteoarthritis of multiple sites Status: Chronic Current Visit: No (6) Gout Status: Chronic Current Visit: No (7) History of chemotherapy Status: Chronic Current Visit: No (8) History of external beam radiation therapy Status: Chronic Current Visit: No (9) Near syncope Status: Acute Current Visit: No (10) Status post knee replacement Status: Chronic Current Visit: No (11) 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 History of CM, EF now 45-50%. Continue coreg and will consider restarting lisinopril tomorrow pending lab results. 2. Elevated BUN/Cr, improving. Diuretics on hold. 3. SOA with bilateral pneumonia. Recent VQ scan at [place] was low prob for PE but due to continued SOA and recent sedentary lifestyle, Pulmonary has requested CTA to re-evaluate for PE. 4. Anxiety 5. History of AICD implanted for viral related CM. Pt relates normal coronaries by cardiac cath in past. 6. History of breast CA with XRT and chemo in past. <Ray Pack - Last Filed: 06/10/20 12:55> Exam Vital signs and Labs for Last 24 Hours: Temp Pulse Resp BP Pulse Ox 98.5 F 86 18 128/45 L 90 L 06/10/20 11:24 06/10/20 11:24 06/10/20 11:24 06/10/20 11:24 06/10/20 11:24 Laboratory Results - last 24 hr 06/10/20 07:50: WBC 8.9, RBC 3.53 L, Hgb 11.5 L, Hct 36.1 L, MCV 102.3 H, MCH 32.4 H, MCHC 31.7 L, RDW 15.2, Plt Count 291, MPV 7.8, Neut % (Auto) 80.4 H, Lymph % (Auto) 14.2, [place] % (Auto) 4.2, Eos % (Auto) 0.9, Baso % (Auto) 0.4, Neut # (Auto) 7.2, Lymph # (Auto) 1.3, [place] # (Auto) 0.4, Eos # (Auto) 0.1, Baso # (Auto) 0.0 06/10/20 07:50: Sodium 134 L, Potassium 4.4, Chloride 99, Carbon Dioxide 27, Anion Gap 12.4, BUN 36 H, Creatinine 1.20 H, Estimated Creat Clear 82, Estimated GFR 45 L, Est GFR ( Amer) 55 L, Glucose 196 H, Calcium 9.2
--- NOTE | 2020-06-10 13:06 | XR_ITS ---
PROCEDURE: XR CHEST 2V CLINICAL HISTORY: pneumonia COMPARISON: CR XR CHEST PORTABLE from 06/07/2020 CR XR CHEST 2V from 06/08/[address] ANGIO CHEST from 06/10/2020 FINDINGS: Biventricular pacemaker with right atrial lead is present from left subclavian approach. Right subclavian MediPort catheter is present with tip in the region the SVC. There is diffuse bilateral alveolar disease consistent with bilateral pneumonia which is somewhat worse in the right lower lobe. Left perihilar infiltrate also noted not significantly changed. There is diffuse prominence of the interstitium due to edema or inflammatory/infectious process. There is a small left pleural effusion with minimal blunting of the left CP angle. No acute bony findings. IMPRESSION: Slight worsening right lower lobe pneumonia with left perihilar infiltrate small left effusion and mild prominence of the interstitium Dictated by: Gerry Craig MD 06/10/2020 14:32 Gerry Craig MD in [facility] 06/10/2020 14:32
--- NOTE | 2020-06-10 16:54 | HMH.PULMPN ---
Internal Medicine - PN: Subj *Date: 06/10/20 *Time: 16:54 Interval history: Patient denies any new complaints today. Stated she felt anxious this morning and Xanax help her with her anxiety. Exam Vital signs and Labs for Last 24 Hours: Temp Pulse Resp BP Pulse Ox 98.5 F 87 18 110/56 L 90 L 06/10/20 15:45 06/10/20 15:45 06/10/20 15:45 06/10/20 15:45 06/10/20 15:45 Laboratory Results - last 24 hr 06/10/20 07:50: WBC 8.9, RBC 3.53 L, Hgb 11.5 L, Hct 36.1 L, MCV 102.3 H, MCH 32.4 H, MCHC 31.7 L, RDW 15.2, Plt Count 291, MPV 7.8, Neut % (Auto) 80.4 H, Lymph % (Auto) 14.2, [place] % (Auto) 4.2, Eos % (Auto) 0.9, Baso % (Auto) 0.4, Neut # (Auto) 7.2, Lymph # (Auto) 1.3, [place] # (Auto) 0.4, Eos # (Auto) 0.1, Baso # (Auto) 0.0 06/10/20 07:50: Sodium 134 L, Potassium 4.4, Chloride 99, Carbon Dioxide 27, Anion Gap 12.4, BUN 36 H, Creatinine 1.20 H, Estimated Creat Clear 82, Estimated GFR 45 L, Est GFR ( Amer) 55 L, Glucose 196 H, Calcium 9.2 I & O for Last 24 hours: Intake & Output 06/07/20 06/08/20 06/09/20 06/10/20 23:59 23:59 23:59 23:59 Intake Total 360 / 360 1237 / 1237 1134 / 1134 Output Total 300 / 300 Balance 360 / 360 1237 / 1237 834 / 834 Weight 300 lb 2 oz 241 lb 3 oz 244 lb 5 oz Microbiology Reports for the Last 24 Hours: Microbiology 06/10/20 14:45 Sputum - Expectorated Sputum Gram Stain - Final 06/08/20 23:01 Sputum - Expectorated Sputum Gram Stain - Final 06/08/20 23:01 Sputum - Expectorated Sputum Sputum Culture - Preliminary - *Routine HEENT Exam Head: Present: normocephalic, atraumatic - *Routine Neck Exam Present: supple, full ROM - *Routine Respiratory Exam Absent: accessory muscle use Comments: Bilateral coarse breath sounds - *Routine Cardiovascular Exam Present: Normal S1, Normal S2 - *Routine Abdominal Exam Present: soft, normoactive bowel sounds. Absent: tenderness, distended, rebound, guarding - *Routine Extremities Exam Absent: cyanosis, clubbing, edema - *Routine Neurological Exam Present: alert, oriented X3, tremors - Routine Psychiatric Exam Absent: suicidal ideation, homicidal ideation, cooperative Assessment and Plan (1) Pneumonia Current visit: No Status: Acute Qualifiers: Pneumonia type: due to unspecified organism Laterality: right Lung location: lower lobe of lung Qualified Code(s): J18.9 - Pneumonia, unspecified organism Category: Medical Code(s): J18.9 - Pneumonia, unspecified organism (2) Breast cancer Current visit: No Status: Chronic Qualifiers: Breast location: upper outer quadrant of breast Estrogen receptor status: unspecified Patient sex: female Laterality: left Qualified Code(s): C50.412 - Malignant neoplasm of upper-outer quadrant of left female breast Category: Medical Code(s): C50.919 - Malignant neoplasm of unspecified site of unspecified female breast (3) Chronic pain Current visit: No Status: Chronic Qualifiers: Chronic pain type: other chronic postprocedural pain Qualified Code(s): G89.28 - Other chronic postprocedural pain Category: Medical Code(s): G89.29 - Other chronic pain (4) Diabetes Current visit: No Status: Chronic Qualifiers: Diabetes mellitus type: type 2 Category: Medical Code(s): E11.9 - Type 2 diabetes mellitus without complications (5) Erosive osteoarthritis of multiple sites Current visit: No Status: Chronic Category: Medical Code(s): M15.4 - Erosive (osteo)arthritis (6) Gout Current visit: No Status: Chronic Qualifiers: Gout site: unspecified site Gout etiology: unspecified cause Chronicity: chronic Presence of tophus: without tophus Qualified Code(s): M1A.9XX0 - Chronic gout, unspecified, without tophus (tophi) Category: Medical Code(s): M10.9 - Gout, unspecified (7) History of chemotherapy Current visit: No Status: Chronic Category: Medical Code(s): Z92.21 - Personal
[2020-06-10 17:25] LABS: Calcium, Ionized 4.9 mg/dL (4.5-5.6)
--- NOTE | 2020-06-10 19:39 | PC.NURSE ---
Remains on 4 L O2 per nasal cannula. Neb given to induce sputum, but unable to collect. Pt was taken by w/c earlier this shift for chest CTA, pt tolerated well. This nurse stayed w/ pt during testing for reassurance. Per pt's request pt's daughter was called and updated on pt's current status. Pt ambulates w/ assistance to bathroom, voiding w/o difficulty. No BM this shift. Dr. Pack spoke to pt @ [address] about [address] results, pt became anxious and upset, order received verbally for pt to receive 25 mg Phenergan IV now and q6hp for nausea as well as 1 mg Ativan now and Q6hp for anxiety. Orders repeated and verified to . Meds given and pt rechecked. Pt found to be drowsy. Pt is up to chair at this time w/ clip alarm in place. Call dent w/in reach. Report given to Guerrero Souza RN.
[2020-06-11] VITALS: BP 134/66; PULSE 90; RESP 18; TEMP 37.1; O2SAT 91
[2020-06-11 00:24] LABS: Microscopic,Cath URINE MICROSCOPIC (MICROSCOPIC)
[2020-06-11 00:54] LABS: Appearance,Urine/Cath CLEAR (Clear); Bilirubin,Cath Negative (Negative); Blood, Urine/Cath TRACE-L (Negative); Color,Urine/Cath YELLOW (Yellow); Glucose,Urine/Cath (UA) Negative (Negative); Ketones,Urine/Cath Negative (Negative); Leukocyte Esterase,Cath 1+ (Negative); Nitrate,Cath Negative (Negative); Protein,Urine/Cath Negative (Negative); Specific Gravity, Urine/Cath 1.025 (1.005-1.030); Urobilinogen,Cath 0.2 EU/dl (0.2)
[2020-06-11 01:08] LABS: Bacteria,Urine/Cath 1+ /lpf
[2020-06-11 01:09] LABS: Hyaline Casts,Urine/Cath OCC #/lpf (0)
--- NOTE | 2020-06-11 02:27 | PC.NURSE ---
A&OX4. PT HAS TOLERATED 4L NC WELL THROUGHOUT SHIFT. RESPIRATIONS REGULAR AND UNLABORED AT THIS TIME BUT AT TIMES PT HAS BEEN A LITTLE ANXIOUS AND SOB. SHE STATED THAT SHE HAS A LOT ON HER MIND AND IS VERY STRESSED FROM THE NEWS SHE RECEIVED FROM THE DR. SHE HAS RECEIVED ATIVAN 0.5MG PO ONCE NEEDED TO HELP. SINCE PT RECEIVED MEDICATION, SHE HAS RESTED BETTER. LUNG SOUNDS BILATERALLY CLEAR. NO COUGH NOTED. ACTIVE BOWEL SOUNDS HEARD IN ALL 4 QUADRANTS. SOFT AND NONTENDER ABDOMEN. NO BM THUS FAR. PT AMBULATES TO RESTROOM W STANDBY ASSISTANCE. STEADY GAIT NOTED. CLEAR YELLOW URINE NOTED. PT MOVES INDEPENDENTLY IN BED. AT BEGINNING OF SHIFT, PT DIDN'T FEEL WELL AFTER RECEIVING ATIVAN AND PHENERGAN ON HI. ONCE MEDICATION SEEMED TO HAVE WORN OFF, SHE STATED SHE FELT BETTER. PT HASN'T REPORTED NAUSEA SINCE THEN. PERCOCET WAS ADMINISTERED ONCE FOR PAIN 7/10 IN BACK. ON REASSESSMENT, PT WAS RESTING W EYES CLOSED. RECEIVED CEFEPIME ONCE THIS SHIFT AND TOLERATED WELL. HAND NURSE EXAMINER EQUAL. +2 PULSES NOTED THROUGHOUT. NS INFUSING AT 50ML/HR. PT IS CURRENTLY SLEEPING IN BED AT THIS TIME. CALL LIGHT WITHIN REACH. BED IN LOWEST POSITION. VSS. WILL CONTINUE TO MONITOR.
[2020-06-11 04:00] VITALS: BP 136/63; PULSE 89; RESP 20; TEMP 36.7; O2SAT 90
[2020-06-11 05:00] VITALS: BMI 37.3
[2020-06-11 07:36] VITALS: BP 151/81; PULSE 101; RESP 22; TEMP 36.7; O2SAT 92
--- NOTE | 2020-06-11 09:36 | HMH.DCSUM ---
General - General Admission date:: 06/08/20 Discharge date: 06/11/20 HPI HPI: Patient is well-known to me from previous practice, has multiple chronic comorbid issues including breast cancer and significant erosive osteoarthritis. She is also obese. She had spent about 7 days inpatient at [facility] in [place] for dyspnea. She has a significant cardiomyopathy, and at the point of her maximal decompensation had an EF around 15%. She was treated with a classic regimen of Coreg, Aldactone, and OMAIRA inhibitors and responded nicely to these treatments. She is actively followed by a tax appraiser in [facility] as well as the [facility] at . An AICD was placed at the point of her maximal decompensation. She made slow and steady improvement. Her admission at [facility] was prompted by dyspnea. She feels that she was overly diuresed, and became markedly weakened. She was also found to have a pneumonia while there, pulmonary was consulted there, and she was placed on a regimen including doxycycline. She was discharged on p.o. doxycycline. I saw the patient yesterday for ongoing dyspnea. A chest film demonstrated an infiltrative process on the right side. There was also a suggestion of a nodular opacity. She had been on a tapering dose of p.o. prednisone. In the office yesterday I gave her 1 g of Rocephin IM, 120 mg of Depo-Medrol IM, and continued the doxycycline for another week. I sent her to the hospital here for chest x-rays and lab work, and during the process of getting the chest x-ray she became markedly weak. She was then seen and evaluated in the emergency room. Brain natruretic peptide was unremarkable, ABGs showed a slight diminished PO2 without CO2 retention. She was sent home for ongoing medical management. Despite these measures she continued to be markedly dyspneic, and presented again today to my office with worsening symptoms. The decision was then made to admit her for further evaluation and treatment. Patient has a history of cancer of the left breast. Upon resection she had several nodes that were positive. A subsequent resection was performed. She received XRT to the left, along with a partial course of chemo which she tolerated poorly. In the office I heard crackles at her right base and mid field which corresponded to findings on the x-ray. She has been taking oxygen at home at 3 L/min. Due to her dyspnea and markedly weakened state we made the decision to admit her for more definitive treatment and further evaluation. Hospital Course Hospital Course: seen in consultation with cardiology and pulmonary services broad spectrum abx initiated cultured sputum and blood 02 to maintain saturations comfort medications/bronchodilation ct imaging showed suggestion of extensive metastatic disease, most likely from neoplasm breast we spoke at length Dr Sabillon will propose EBUS to further delineate anatomy we are looking for ways to modulate her dyspnea she has home [address] chest performed Objective Vital signs: Temp Pulse Resp BP Pulse Ox 98.1 F 101 H 22 151/81 H 92 L 06/11/20 07:36 06/11/20 07:36 06/11/20 07:36 06/11/20 07:36 06/11/20 07:36 mild distress, obese, chronically ill appearing - *Routine HEENT Exam Head: Present: normocephalic, atraumatic Eye: Present: EOMI. Absent: conjunctival icterus, scleral injection - *Routine Neck Exam Present: supple - *Routine Respiratory Exam Present: rales, diminished air movement. Absent: accessory muscle use, prolonged expiratory phase, respiratory distress, stridor, wheezes - *Routine Cardiovascular Exam Present: RRR - *Routine Abdominal Exam Present: soft, normoactive bowel sounds. Absent: tenderness - *Routine Extremities Exam Absent: cyanosis, clubbing, edema - *Routine Skin Exam Present: warm. Absent: rash Results Labs on day of discharge: Labs from last 24 hours 06/11/20
--- NOTE | 2020-06-11 09:42 | P.PN_ITS ---
Subjective Date: 06/11/20 Time: 09:42 Principal diagnosis: SOA Interval history: 64 yo WF at bedside in NAD. Tearful due to CTA of chest results being highly suspicious for metastatic cancer. Pulmonary just discussed results and plans. Exam Vital signs and Labs for Last 24 Hours: Temp Pulse Resp BP Pulse Ox 98.1 F 101 H 22 151/81 H 92 L 06/11/20 07:36 06/11/20 07:36 06/11/20 07:36 06/11/20 07:36 06/11/20 07:36 Laboratory Results - last 24 hr 06/08/20 18:10: Ionized Calcium 4.9 06/11/20 00:06: Urine Color Yellow, Urine Appearance Clear, Urine pH 6.0, Ur Specific [place] 1.025, Urine Protein Negative, Urine Glucose (UA) Negative, Urine Ketones Negative, Urine Blood Trace-l, Urine Nitrate Negative, Urine Bilirubin Negative, Urine Urobilinogen 0.2, Ur Leukocyte Esterase 1+ A, Urine WBC 5-10, Ur Squamous Epith Cells 3-5, Urine Bacteria 1+, Hyaline Casts Occ I & O for Last 24 hours: Intake & Output 06/08/20 06/09/20 06/10/20 06/11/20 11:59 11:59 11:59 11:59 Intake Total 840 / 840 1771 / 1771 2535 / 2535 Output Total 300 / 300 200 / 200 Balance 840 / 840 1471 / 1471 2335 / 2335 Weight 241 lb 3 oz 244 lb 5 oz 246 lb 7 oz Microbiology Reports for the Last 24 Hours: Microbiology 06/10/20 14:45 Sputum - Expectorated Sputum Gram Stain - Final 06/10/20 14:45 Sputum - Expectorated Sputum Sputum Culture - Preliminary 06/08/20 23:01 Sputum - Expectorated Sputum Gram Stain - Final 06/08/20 23:01 Sputum - Expectorated Sputum Sputum Culture - Final Normal Respiratory Jennifer 06/08/20 17:00 Blood Blood Culture - Preliminary NO GROWTH AFTER 48 HOURS 06/08/20 17:00 Blood Blood Culture - Preliminary NO GROWTH AFTER 48 HOURS - Constitutional no acute distress, mild distress - *Routine Respiratory Exam Present: CTA bilaterally - *Routine Cardiovascular Exam Present: RRR - *Routine Extremities Exam Absent: cyanosis, clubbing, edema - *Routine Neurological Exam Present: alert, oriented X3 Progress Note: A&P (1) Pneumonia Status: Acute Current Visit: No (2) Breast cancer Status: Chronic Current Visit: No (3) Chronic pain Status: Chronic Current Visit: No (4) Diabetes Status: Chronic Current Visit: No (5) Erosive osteoarthritis of multiple sites Status: Chronic Current Visit: No (6) Gout Status: Chronic Current Visit: No (7) History of chemotherapy Status: Chronic Current Visit: No (8) History of external beam radiation therapy Status: Chronic Current Visit: No (9) Near syncope Status: Acute Current Visit: No (10) Status post knee replacement Status: Chronic Current Visit: No (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 Continue coreg and will restart lisinopril due to improved Cr and elevated BP. Consider restarting diuretics as needed but no evidence of CHF at this time. Met. Cancer, per Pulmonary.
[2020-06-11 10:25] LABS: Legionella pneumophila Abs. <0.91 OD ratio (0.00-0.90)
--- NOTE | 2020-06-11 10:37 | HMH.PULMPN ---
Internal Medicine - PN: Subj *Date: 06/11/20 *Time: 10:37 Interval history: Patient oxygen requirement slightly improved from yesterday currently needing 4 L nasal cannula oxygen supplementation. Patient had CAT scan performed yesterday. Exam Vital signs and Labs for Last 24 Hours: Temp Pulse Resp BP Pulse Ox 98.1 F 101 H 22 151/81 H 92 L 06/11/20 07:36 06/11/20 07:36 06/11/20 07:36 06/11/20 07:36 06/11/20 07:36 Laboratory Results - last 24 hr 06/08/20 18:10: Ionized Calcium 4.9 06/09/20 07:50: Legionella pneumophila Ab <0.91 06/11/20 00:06: Urine Color Yellow, Urine Appearance Clear, Urine pH 6.0, Ur Specific [place] 1.025, Urine Protein Negative, Urine Glucose (UA) Negative, Urine Ketones Negative, Urine Blood Trace-l, Urine Nitrate Negative, Urine Bilirubin Negative, Urine Urobilinogen 0.2, Ur Leukocyte Esterase 1+ A, Urine WBC 5-10, Ur Squamous Epith Cells 3-5, Urine Bacteria 1+, Hyaline Casts Occ I & O for Last 24 hours: Intake & Output 06/08/20 06/09/20 06/10/20 06/11/20 23:59 23:59 23:59 23:59 Intake Total 360 / 360 1237 / 1237 2274 / 2274 1275 / 1275 Output Total 300 / 300 200 / 200 Balance 360 / 360 1237 / 1237 1974 / 1974 1075 / 1075 Weight 300 lb 2 oz 241 lb 3 oz 244 lb 5 oz 246 lb 7 oz Microbiology Reports for the Last 24 Hours: Microbiology 06/10/20 14:45 Sputum - Expectorated Sputum Gram Stain - Final 06/10/20 14:45 Sputum - Expectorated Sputum Sputum Culture - Preliminary 06/08/20 23:01 Sputum - Expectorated Sputum Gram Stain - Final 06/08/20 23:01 Sputum - Expectorated Sputum Sputum Culture - Final Normal Respiratory Jennifer 06/08/20 17:00 Blood Blood Culture - Preliminary NO GROWTH AFTER 48 HOURS 06/08/20 17:00 Blood Blood Culture - Preliminary NO GROWTH AFTER 48 HOURS Radiology Reports for the Last 24 Hours: CT scan of the chest performed yesterday reviewed -showed extensive bilateral hilar adenopathy along with bilateral pulmonary nodules. Given her history of breast cancer this is highly suspicious for metastatic cancer spread. Along with this patient also found to have bilateral airspace disease concerning for overlying pneumonia. - *Routine HEENT Exam Head: Present: normocephalic, atraumatic - *Routine Neck Exam Present: supple, full ROM - *Routine Respiratory Exam Absent: accessory muscle use, patient mechanically ventilated, decreased breath sounds Comments: Bilateral coarse breath sounds - *Routine Cardiovascular Exam Present: RRR, Normal S1, Normal S2 - *Routine Abdominal Exam Present: soft, normoactive bowel sounds. Absent: tenderness, distended, rebound, guarding - *Routine Extremities Exam Absent: cyanosis, clubbing, edema Assessment and Plan (1) Pneumonia Current visit: No Status: Acute Qualifiers: Pneumonia type: due to unspecified organism Laterality: right Lung location: lower lobe of lung Qualified Code(s): J18.9 - Pneumonia, unspecified organism Category: Medical Code(s): J18.9 - Pneumonia, unspecified organism (2) Breast cancer Current visit: No Status: Chronic Qualifiers: Breast location: upper outer quadrant of breast Estrogen receptor status: unspecified Patient sex: female Laterality: left Qualified Code(s): C50.412 - Malignant neoplasm of upper-outer quadrant of left female breast Category: Medical Code(s): C50.919 - Malignant neoplasm of unspecified site of unspecified female breast (3) Chronic pain Current visit: No Status: Chronic Qualifiers: Chronic pain type: other chronic postprocedural pain Qualified Code(s): G89.28 - Other chronic postprocedural pain Category: Medical Code(s): G89.29 - Other chronic pain (4) Diabetes Current visit: No Status: Chronic Qualifiers: Diabetes mellitus type: type 2 Category: Medical Code(s): E11.9 - Type 2 diabetes me
[2020-06-11 11:36] LABS: Vancomycin,Trough 12.8 ug/mL (5.0-10.0)
--- NOTE | 2020-06-11 11:51 | HMH.PHACONS ---
- Pharmacy Consult Date: 06/11/20 Time: 11:51 Referring provider: DR. PHOENIX Reason for Consult:: VANCOMYCIN TROUGH LEVEL Allergies and ADEs:: Allergies Allergy/AdvReac Type Severity Reaction Status Date / Time sodium acid pyrophosphate Allergy Severe Chest Pain Verified 06/08/20 13:46 ondansetron [From Zofran] Allergy Mild Verified 06/08/20 13:46 Home Medications:: Home Medications Medication Instructions Recorded Confirmed Type allopurinol 300 mg tablet 300 mg PO DAILY 04/19/20 06/08/20 History aspirin 81 mg tablet,delayed 81 mg PO DAILY 04/19/20 06/08/20 History release carvedilol 25 mg tablet 25 mg PO BID 04/19/20 06/08/20 History lidocaine HCl 2.75 % lotion 1 applic TOPICAL NEEDED PRN 04/19/20 06/08/20 History lisinopril 5 mg tablet 5 mg PO DAILY 04/19/20 06/09/20 History potassium chloride 10 mEq 20 meq PO QID cap 04/19/20 06/08/20 History capsule,extended release torsemide 10 mg tablet 10 mg PO DAILY 04/19/20 06/09/20 History spironolactone 25 mg tablet 12.5 mg PO DAILY 04/27/20 06/08/20 History Doxycycline Hyclate [Vibramycin 100 mg PO BID 06/08/20 06/08/20 History 100mg Capsule] LORazepam [Lorazepam] 0.5 mg PO DAILYP PRN 06/08/20 06/09/20 History Metformin HCl [Glucophage] 500 mg PO BIDWM 06/08/20 06/09/20 History Mometasone/Formoterol [Dulera 100 2 puffs IH BID 06/08/20 06/09/20 History Mcg-5 Mcg Inhaler] Multivit-Min/Iron Fum/Folic AC 1 each PO DAILY 06/08/20 06/08/20 History [Pmpuq-Dpparzg-Facgevcv Tablet] Albuterol Sulfate [Albuterol 2 puffs IH Q4HP PRN 06/09/20 06/09/20 History Sulfate Hfa] Oxycodone HCl/Acetaminophen 1 tab PO Q6HP PRN 06/09/20 06/09/20 History [Percocet 5/325mg tablet] Pantoprazole Sodium [Protonix 40mg 40 mg PO BID 06/09/20 06/09/20 History tablet] predniSONE [Deltasone 10mg 10 mg PO BID 06/09/20 06/09/20 History tablet] Height: 1.73 m Weight: 111.782 kg Laboratory Results:: Laboratory Results - last 24 hr 06/08/20 18:10: Ionized Calcium 4.9 06/09/20 07:50: Legionella pneumophila Ab <0.91 06/11/20 00:06: Urine Color Yellow, Urine Appearance Clear, Urine pH 6.0, Ur Specific [place] 1.025, Urine Protein Negative, Urine Glucose (UA) Negative, Urine Ketones Negative, Urine Blood Trace-l, Urine Nitrate Negative, Urine Bilirubin Negative, Urine Urobilinogen 0.2, Ur Leukocyte Esterase 1+ A, Urine WBC 5-10, Ur Squamous Epith Cells 3-5, Urine Bacteria 1+, Hyaline Casts Occ 06/11/20 10:25: Vancomycin Trough 12.8 H Medical History: Reports:: Anxiety, Arrhythmia, Cancer, Congestive Heart Failure, Diabetes Mellitus Type 2, Home Oxygen, Hyperlipidemia, Hypertension, Internal Pacemaker (AICD) Denies:: Diabetes Mellitus Type 1 Assessment and Plan (1) Pneumonia Current visit: No Status: Acute Qualifiers: Pneumonia type: due to unspecified organism Laterality: right Lung location: lower lobe of lung Qualified Code(s): J18.9 - Pneumonia, unspecified organism Category: Medical Code(s): J18.9 - Pneumonia, unspecified organism (2) Breast cancer Current visit: No Status: Chronic Qualifiers: Breast location: upper outer quadrant of breast Estrogen receptor status: unspecified Patient sex: female Laterality: left Qualified Code(s): C50.412 - Malignant neoplasm of upper-outer quadrant of left female breast Category: Medical Code(s): C50.919 - Malignant neoplasm of unspecified site of unspecified female breast (3) Chronic pain Current visit: No Status: Chronic Qualifiers: Chronic pain type: other chronic postprocedural pain Qualified Code(s): G89.28 - Other chronic postprocedural pain Category: Medical Code(s): G89.29 - Other chronic pain (4) Diabetes Current visit: No Status: Chronic Qualifiers: Diabetes mellitus type: type 2 Category: Medical Code(s): E11.9 - Type 2 diabetes mellitus without complications (5) Erosive osteoarthritis of multiple sites Current visit: No
--- NOTE | 2020-06-11 14:21 | HMH.PHAINT ---
DISCHARGE COUNSELING COMPLETED ON PATIENT. NO NEW PRESCRIPTIONS. PATIENT IS TO COMPLETE COURSE OF DOXYCYCLINE PER DR. PHOENIX. STOPPING LIDOCAINE, MULTIVITAMIN, AND PREDNISONE AT THIS TIME. ANSWERED ALL QUESTIONS AND PATIENT VERBALIZED UNDERSTANDING. -SRINI SHAHD
--- NOTE | 2020-06-11 19:31 | PC.NURSE ---
AT D/C PATIENT A&O X4, LUNGS, DIMINISHED, PULSES EQUAL. PATIENT AMBULATED TO BATHROOM 3X WITH THIS RN DURING THE SHIFT. PATIENT DID NOT EAT LUNCH, STATED THAT SHE WAS NOT HUNGRY. THIS RN PROVIDED D/C TEACHING, PATIENT VERBALIZED AN UNDERSTANDING. NO OTHER CONCERNS AT THIS TIME.
[2020-06-14 14:11] LABS: Body Fluid Culture, Sterile Not indicated. (.); Organism ID Not indicated. (.); Specimen Source Urine (.); Streptococcus pneumoniae Ag Negative (Negative)
[2020-06-17 09:51] LABS: Aspergillus Antigen, BAL/Serum Negative
[2020-07-05 09:04] LABS: MRSA DNA PCR Negative
== END 2020-06-11 16:30 | disposition home or self-care (01) ==
PROVIDERS: Internal Medicine Pulmonary Disease; Admitting Provider Family Medicine; PCP Family Medicine; Visit Provider Family Medicine
DX: J18.9 Pneumonia, unspecified organism (principal); Y95 Nosocomial condition; J96.01 Acute respiratory failure with hypoxia; C50.412 Malignant neoplasm of upper-outer quadrant of left female breast; M15.4 Erosive (osteo)arthritis; I42.9 Cardiomyopathy, unspecified; Z95.810 Presence of automatic (implantable) cardiac defibrillator; I11.0 Hypertensive heart disease with heart failure; I50.9 Heart failure, unspecified; Z79.84 Long term (current) use of oral hypoglycemic drugs; E11.9 Type 2 diabetes mellitus without complications; Z79.82 Long term (current) use of aspirin; Z99.81 Dependence on supplemental oxygen; Z88.8 Allergy status to other drugs, medicaments and biological substances; N39.0 Urinary tract infection, site not specified; Z17.1 Estrogen receptor negative status [ER-]; M79.605 Pain in left leg; M79.604 Pain in right leg
CPT/HCPCS: G0379; 36415; 71046; 71275; 80048; 80053; 80202; 81001; 82330; 82803; 83615; 83735; 84100; 85007; 85025; 86328; 86713; 87040; 87070; 87077; 87081; 87086; 87088; 87186; 87205; 87305; 87486; 87581; 87633; 87798; 87899; 93306; 93970; 94640; 94760; 94761; G0378; J1956; J2543; J3370; Q9967

== ENCOUNTER 2020-06-11 16:54 | Inpatient (IN) | payer MEDICARE, MEDICAID, SELFPAY ==
[2020-06-11] VITALS (7 sets, daily range): BP systolic 95–139; BP diastolic 43–70; PULSE 81–95; RESP 16–24; TEMP 36.7–36.8; O2SAT 89–98; BMI 32.9; BMI 33.9
--- NOTE | 2020-06-11 16:54 | ECG_ITS ---
APPROVED REPORT Exam: Resting ECG HR:93 bpm ECG Measurements Heart Rate 93 AXES RI 128 P 60 QRSd 116 QRS 114 QT 398 T 32 QTc 494 <Conclusion> Electronic ventricular pacemaker Electronically signed by : Kishor Meek, 06/13/2020 20:00:57
--- NOTE | 2020-06-11 18:17 | PC.NURSE ---
media relations manager paged.
--- NOTE | 2020-06-11 18:30 | PC.NURSE ---
Addendum entered by Patricia David RN 06/11/20 18:42: ER is aware in delay of lab work r/t difficulties in establishing access. Original Note: multiple unsuccessful attempts at port access IV established in R forearm, pt was okay with establishing IV related unsuccessful at accessing port. Pt reports they have been having trouble with it over the past couple weeks .
--- NOTE | 2020-06-11 18:30 | HMH.EDGENADL ---
ED Disposition Clinical Impression: Shortness of breath, Weakness Fatigue Qualifiers: Fatigue type: unspecified Qualified Code(s): R53.83 - Other fatigue Disposition: Admitted as Observation Condition on Discharge: Fair Referrals: Ray Pack MD [Primary Care Provider] - Time of Disposition: 19:05 - Critical Care Critical Care Time: No Attestation: On 06/11/20, the high probability of a clinically significant, sudden or life threatening deterioration of the following system(s) required my full and direct attention, intervention and personal management. The time I documented below is in addition to time spent performing reported procedures but includes the following listed in this critical care notation. Medical Decision Making - Medical Records Medical records reviewed: Yes: I reviewed the patient's medical records. - Dung Inquiry Pt receiving controlled substance: No Vital Signs: 06/11/20 16:54 06/11/20 17:29 Temperature 98.0 F Temperature Source Oral Pulse Rate [Right Radial] 95 H 89 Respiratory Rate 24 Blood Pressure [Right Arm] 123/68 95/43 L Blood Pressure Mean [Right Arm] 86 60 Blood Pressure Source [Right Arm] Automatic Cuff Automatic Cuff Blood Pressure Position [Right Arm] Sitting Sitting 02 Sat by Pulse Oximetry 89 L 90 L Oxygen Delivery Method Nasal Cannula Nasal Cannula Oxygen Flow Rate (LPM) 4 4 Orders (Tests/Meds): ORDERS Category Date Time Status CBC w/Auto Diff [Complete Blood Count Auto Diff] Stat Lab 06/11/20 17:20 Ordered CMP [Comprehensive Metabolic Panel] Stat Lab 06/11/20 18:30 Received Covid-19 IgG/IgM ([facility]) Stat Lab 06/11/20 19:03 Ordered VBG [Venous Blood Gas] Stat RT 06/11/20 17:20 Ordered Medical Decision Narrative: In summary this is a 64-year-old female presenting to the emergency department with generalized fatigue and shortness of breath. Patient is clinically stable on arrival. Oxygen saturations are 90% on home 4 L by nasal cannula. Reviewed patient's work-up from recent admission. She had CT angiography performed yesterday. No signs of pulmonary embolus. It showed 1. Extensive mediastinal and hilar adenopathy as well as multiple noncalcified bilateral pulmonary nodules consistent with metastatic disease 2. Multifocal bilateral pneumonia with bilateral effusions 3. No evidence of pulmonary embolus Appears to be significantly anxious and apprehensive. Respiratory status was stable earlier today, I do not believe that there are additional interventions that would help. May need to see physical therapy and Occupational Therapy before she feels comfortable going home again. General Adult HPI - General Chief complaint: Chest Pain Stated complaint: chest pain, SOA Time Seen by Provider: 06/11/20 16:59 Mode of Arrival: Ambulatory Limitations: No Limitations Description of Symptoms (Recalled from ER Triage Doc. by RN): Pt reports she was just discharged from second floor, states she was bending over to turn her oxygen on when she began feeling weak, increasing SOA and chest pain. Pt reports she was told today prior to d/c that her lung cancer is back, states she is home O2 dependent states she was discharged on 4L per NC. - History of Present Illness HPI narrative: 64-year-old female presenting to the emergency department with weakness and shortness of breath. She was being discharged from the hospital when the episode happened. She was in her car getting ready to drive home. Could not figure out how to start her oxygen, uses 4L at all times. She felt short of breath, hot, sweaty, distressed. She was unable to stand. She tonked her car horn for help. Patient was admitted for shortness of breath, treated for pneumonia. Was also found to have recurrence of breast cancer with lung metastases. While in the emergency department she continues to feel somewhat short of breath and fatigued. Does not think she would be able to stand or walk or
--- NOTE | 2020-06-11 18:53 | PC.NURSE ---
EMORY MOYER speaking with Dr. Dutta who is equipment monitor phototypesetting for Dr. Pack
--- NOTE | 2020-06-11 18:55 | PC.NURSE ---
RT notified VBG order
[2020-06-11 19:08] LABS: Chloride 102 mmol/L (98-107); Sodium 130 mmol/L (136-145)
[2020-06-11 19:09] LABS: Potassium 4.3 mmoL/L (3.5-5.1)
--- NOTE | 2020-06-11 19:10 | PC.NURSE ---
notified head of housekeeping of admission
[2020-06-11 19:11] LABS: Alanine Aminotransferase 17 U/L (12-78); Albumin Level 3.5 g/dl (3.5-5.0); Albumin/Globulin Ratio 1.3 (1.1-1.8); Alkaline Phosphatase 66 U/L (38-126); Aspartate Amino Transferase 28 U/L (14-36); Bilirubin,Total 0.7 mg/dl (0.2-1.3); Blood Urea Nitrogen 21 mg/dl (7-17); Carbon Dioxide 24 mmol/L (22.0-30.0); Creatinine Clearance Estimated 95 mL/min (50-200); Estimated Glomerular Filt Rate 63 ml/min (>60); GFR (African American) 76 ML/MIN (>60); Globulin 2.8 g/dL (1.3-3.2); Total Protein,Serum 6.3 g/dl (6.3-8.2)
[2020-06-11 19:12] LABS: Calcium 9.2 mg/dl (8.4-10.2); Glucose 215 mg/dl (74-100)
[2020-06-11 19:14] LABS: Basophils % 0.2 % (0.1-2.0); Eosinophils # 0.2 K/mm3 (0.0-0.4); Eosinophils % 1.6 % (0.1-12.0); Hematocrit 35.5 % (37.0-47.0); Lymphocytes # 1.5 K/mm3 (0.7-4.5); Lymphocytes % 13.5 % (10-50); Mean Corpuscular HGB Conc 33.9 g/dL (31.8-35.4); Mean Corpuscular Hemoglobin 34.2 pg (27.0-31.2); Mean Corpuscular Volume 100.7 fl (81-99); Mean Platelet Volume 7.1 fl (7.4-10.4); Monocytes # 0.5 K/mm3 (0.1-1.0); Monocytes % 4.1 % (1.7-9.3); Neutrophils # 8.9 K/mm3 (1.8-7.8); Neutrophils % 80.6 % (37.0-80.0); Platelet Count 279 K/mm3 (142-424); Red Blood Count 3.52 M/mm3 (4.20-5.40); Red Cell Distribution Width 15.1 % (11.5-17.5)
[2020-06-11 19:18] LABS: Anion Gap 8.3 mEq/L (5-15)
--- NOTE | 2020-06-11 19:22 | PC.NURSE ---
Attempted to assist patient to lay down in the bed, and patient stated that she could not tolerate laying down due to soa. Assisted patient back to chair.
--- NOTE | 2020-06-11 19:28 | PC.NURSE ---
Called report to Ariana waiting on covid results before pt can go to the floor
[2020-06-11 19:40] LABS: VBG Base Excess -5.3 mmol/L (-2.4-2.3); VBG HCO3 20.2 mmol/L (23-30); VBG Oxygen Saturation 98.8 % (50-70); VBG PCO2 36.5 mmol/L (35-51); VBG PH 7.36 mmol/L (7.31-7.41); VBG PO2 135.8 mmol/L (28-40); VBG Total CO2 21.3 mmol/L (23-27)
[2020-06-11 19:41] LABS: Coronavirus 19 IgG Antibody Negative (Negative); Coronavirus 19 IgM Antibody Negative (Negative)
--- NOTE | 2020-06-11 20:40 | PC.NURSE ---
PT ARRIVED TO THE FLOOR VIA W/C FROM ED WITH STAFF AT 2038
[2020-06-12] VITALS (7 sets, daily range): BP systolic 98–137; BP diastolic 44–67; PULSE 83–95; RESP 16–18; TEMP 36.6–37; O2SAT 86–90
--- NOTE | 2020-06-12 03:14 | PC.NURSE ---
Pt readmitted this shift for soa/weakness/fatigue. Pt exhibits sob with any exertion including lying flat. Pt has had several rounds of productive coughing and is able to spit sputum out. Has complained of neck and upper back pain during coughing. Pt requires assist x1 ambulating to bathroom as she is unsteady on her feet. 3+ edema noted in left hand and 1+ edema noted in BLE.
--- NOTE | 2020-06-12 09:37 | P.CONPHA_ITS ---
[facility] Pharmacy VTE Monitoring - Patient Demographics Admission date: 06/11/20 Report Date: 06/12/20 Time: 09:37 Allergies/Adverse Reactions: Patient Allergies thiopental [From Pentothal] Allergy (Severe, Verified 06/11/20 20:53) Seizure ondansetron [From Zofran] Allergy (Mild, Verified 06/08/20 13:46) Height: 1.8 m Weight: 110 kg Patient Problems: Current Active Problems Shortness of breath (Acute) Fatigue (Acute) Weakness (Acute) - VTE Risk Labs: VTE Related Lab Results Hgb 12.0 g/dL (12.2-16.2) L 06/11/20 19:08 Hct 35.5 % (37.0-47.0) L 06/11/20 19:08 Plt Count 279 K/mm3 (142-424) 06/11/20 19:08 BUN 21 mg/dl (7-17) H D 06/11/20 18:30 Creatinine 0.90 mg/dl (0.52-1.04) D 06/11/20 18:30 Estimated Creat Clear 95 mL/min (50-200) 06/11/20 18:30 Was VTE Risk Assessment Performed: Yes VTE Score: 7 VTE Risk Level: Moderate Risk - Prophylaxis VTE Prophylaxis Ordered?: Yes Types of VTE Prophylaxis: TEDS Knee High Location of Applied Device: Bilateral Lower Extremeties
--- NOTE | 2020-06-12 09:38 | HMH.PHAINT ---
MEDICATION RECONCILIATION COMPLETED ON PATIENT USING DISCHARGE SUMMARY FROM PREVIOUS ADMISSION (YESTERDAY). -SRINI SHAHD
--- NOTE | 2020-06-12 12:39 | HMH.HP ---
*Admission Date: 06/11/20 *History of present illness: Patient was recently admitted and discharged for pneumonia and progressive dyspnea. Immediately upon discharge she experienced a bout of severe weakness, was reevaluated in the emergency room and subsequently readmitted. An infiltrative process was noted on chest x-ray, along with desaturations. Further imaging and evaluation revealed significant intrathoracic lymphadenopathy consistent with metastatic cancer. This is most likely from her breast cancer, she is status post resection with adjuvant chemo and XRT. She did have several positive nodes. She is actively followed by her oncologist in [facility]. Plans were made from pulmonary senior product consultant to proceed with EBUS. Patient is extremely anxious over CT findings, and is very weakened, likely has become deconditioned. Prior to this hospital stay she had been a week in [place]. She has not been eating well, experiencing lots of nausea. HPI narrative: 64-year-old female presenting to the emergency department with weakness and shortness of breath. She was being discharged from the hospital when the episode happened. She was in her car getting ready to drive home. Could not figure out how to start her oxygen, uses 4L at all times. She felt short of breath, hot, sweaty, distressed. She was unable to stand. She tonked her car horn for help. Patient was admitted for shortness of breath, treated for pneumonia. Was also found to have recurrence of breast cancer with lung metastases. While in the emergency department she continues to feel somewhat short of breath and fatigued. Does not think she would be able to stand or walk or take care of herself at home. She lives alone. We will consider options for short-term placement for rehabilitation. [facility] History Medical History: Reports:: Anxiety, Arrhythmia, Cancer, Congestive Heart Failure, Diabetes Mellitus Type 2, Home Oxygen, Hyperlipidemia, Hypertension, Internal Pacemaker (AICD) Denies:: Diabetes Mellitus Type 1 *Have you ever received a pneumonia vaccine?: Yes *Have you received a flu vaccine this season?: Yes Other Medical History: Reports: Arthritis, Chemotherapy, Radiation Therapy Laterality Cases: Left: Breast Biopsy, Lumpectomy, Mastectomy, Bilateral: Arthroscopy Knee, Tonsillectomy Other Surgeries: Yes: Cancer Surgery, Cholecystectomy, Pacemaker (AICD), Other (bilateral knee replacement) Amputation: No Fractures: Yes (right shoulder, left shoulder) - *Social History Smoking Status: Never smoker Alcohol Intake: never Substance Use Type: denies use *Occupational Status:: retired, disabled Housing: apartment *Travel in the last 8 weeks: None - Psychiatric History Pschychiatric History:: Reports:: Anxiety Family Hx:: Cancer Review of Systems - Constitutional Reports anorexia, Reports fatigue, Reports lack of energy, Reports malaise, Reports weakness - Eyes Denies change in vision - ENT Denies abnormal hearing - *Cardiovascular Reports shortness of breath, Reports shortness of breath with activity, Reports leg swelling, Denies chest pain - *Respiratory Reports chest congestion, Reports cough, Reports shortness of breath, Denies coughing up blood - *Gastrointestinal Reports belching, Reports feeling full early, Denies difficulty swallowing, Denies pain with swallowing - *Genitourinary Denies painful urination - *Musculoskeletal Reports abnormal walking, Reports joint pain, Reports decreased muscle mass, Reports back pain, Reports muscle weakness - Integumentary/Breasts Denies yellowing of the skin - *Neurologic Reports unsteadiness, Reports weakness, Denies abnormal walking, Denies abnormal speech, Denies dizziness, Denies numbness, Denies fainting - Psychiatric Reports anxiety, Reports hopelessness, Reports mood swings - Endocrine Denies excessive sweating, Denies increased hunger - Hematologic/Lymphatic Denies easy bleeding - Allergic/Im
--- NOTE | 2020-06-12 12:41 | PC.NURSE ---
Called Electrical And Radio Aircraft Mechanic PT about this pt.
--- NOTE | 2020-06-12 12:52 | XR_ITS ---
PROCEDURE: XR CHEST 2V CLINICAL HISTORY: dyspnea COMPARISON: CR XR CHEST PORTABLE from 06/07/2020 CR XR CHEST 2V from 06/08/2020 CR XR CHEST 2V from 06/10/[address] ANGIO CHEST from 06/10/2020 FINDINGS: Cardiomegaly. Bipolar pacemaker is present from left subclavian approach. Right subclavian MediPort catheter noted unchanged. There remains bilateral pneumonia in the right mid lower lung zone and left mid and lower lung zone which appears slightly worse on the left with left-sided effusion which appears slightly larger. Interstitial prominence also noted Degenerative changes of shoulders IMPRESSION: Bilateral pneumonia slightly worse on the left with slight increase in left-sided effusion Dictated by: Gerry Craig MD 06/12/2020 14:20 Gerry Craig MD in [place] 06/12/2020 14:20
[2020-06-12 13:47] LABS: Basophils # 0.1 K/mm3 (0-0.2); Basophils % 0.5 % (0.1-2.0); Eosinophils # 0.1 K/mm3 (0.0-0.4); Eosinophils % 0.9 % (0.1-12.0); Hematocrit 34.1 % (37.0-47.0); Hemoglobin 11.3 g/dL (12.2-16.2); Lymphocytes # 1.3 K/mm3 (0.7-4.5); Lymphocytes % 13.3 % (10-50); Mean Corpuscular HGB Conc 33.2 g/dL (31.8-35.4); Mean Corpuscular Volume 99.3 fl (81-99); Mean Platelet Volume 7.4 fl (7.4-10.4); Monocytes # 0.6 K/mm3 (0.1-1.0); Monocytes % 5.4 % (1.7-9.3); Neutrophils # 8.1 K/mm3 (1.8-7.8); Neutrophils % 79.8 % (37.0-80.0); Platelet Count 295 K/mm3 (142-424); Red Blood Count 3.43 M/mm3 (4.20-5.40); Red Cell Distribution Width 15.2 % (11.5-17.5); White Blood Count 10.1 K/mm3 (4.8-10.8)
[2020-06-12 13:49] LABS: Chloride 100 mmol/L (98-107)
[2020-06-12 13:50] LABS: Potassium 4.4 mmoL/L (3.5-5.1); Sodium 133 mmol/L (136-145)
[2020-06-12 13:52] LABS: Alanine Aminotransferase 21 U/L (12-78); Alkaline Phosphatase 70 U/L (38-126); Anion Gap 13.4 mEq/L (5-15); Aspartate Amino Transferase 27 U/L (14-36); Bilirubin,Total 0.3 mg/dl (0.2-1.3); Blood Urea Nitrogen 29 mg/dl (7-17); Carbon Dioxide 24 mmol/L (22.0-30.0); Creatinine Clearance Estimated 65 mL/min (50-200); Estimated Glomerular Filt Rate 35 ml/min (>60); GFR (African American) 42 ML/MIN (>60)
[2020-06-12 13:53] LABS: Albumin Level 3.6 g/dl (3.5-5.0); Albumin/Globulin Ratio 1.2 (1.1-1.8); Calcium 9.6 mg/dl (8.4-10.2); Globulin 2.9 g/dL (1.3-3.2); Glucose 269 mg/dl (74-100); Magnesium 1.8 mg/dl (1.6-2.3); Total Protein,Serum 6.5 g/dl (6.3-8.2)
--- NOTE | 2020-06-12 18:45 | PC.NURSE ---
NO ACUTE CHANGES THIS SHIFT OR FROM PREVIOUS ASSESSMENT. LUNGS REMAIN DIMINISHED IN BASES. ABDOMEN IS SOFT, NONTENDER WITH ACTIVE BS IN ALL QUADS. PT C/O CONSTIPATION BUT REFUSED WHEN THIS RISK MANAGEMENT DIRECTOR MENTIONED CONTACTING THE FACILITY SUPERVISOR PHYSICIAN FOR A LAXATIVE/STOOL SOFTENER. PT STATED SHE WOULD PREFER TO TALK TO HER ATTENDING PHYSICIAN IN THE MORNING BC SHE WANTS DR. PHOENIX TO ORDER AN ENEMA FOR HER.VSS. NO DISTRESS NOTED. PAIN MEDS ADMINISTERED PER MAR. SAFETY MEASURES IN PLACE, WILL CONTINUE TO MONITOR.
--- NOTE | 2020-06-13 02:30 | INFXCTL.NOTE ---
A&OX4. PT HAS TOLERATED 4L OF NC WELL THROUGHOUT SHIFT. RESPIRATIONS REGULAR AND UNLABORED. LUNG SOUNDS DIMINISHED IN BLL. NO COUGH NOTED. NONPITTING EDEMA NOTED TO BLE. HEART RATE REGULAR. +2 PULSES NOTED THROUGHOUT. HAND RESEARCH ENGINEER MARINE EQUIPMENT EQUAL. ACTIVE BOWEL SOUNDS HEARD IN ALL 4 QUADRANTS. SOFT AND TENDER ABDOMEN NOTED. NO BM THUS FAR. PT TAKES HERSELF TO THE RESTROOM. STEADY GAIT NOTED. PT MOVES INDEPENDENTLY IN THE BED. PT HAS SLEPT IN HER CHAIR THUS FAR. PT REPORTED PAIN ONCE THIS SHIFT IN HER BACK RATING 7/10. PT RECEIVED PERCOCET PER DEC. ON REASSESSMENT SHE RATED IT A 5/10 AND TOLERABLE. PT RECEIVED ALBUTEROL ONCE THUS FAR TO HELP WITH SHORTNESS OF BREATH. SHE STATED IT HELPED. PT ALSO RECEIVED ATIVAN ONCE TO HELP CALM HER NERVES AND HELP HER REST. NS INFUSING AT 75ML/HR. PT CURRENTLY SLEEPING IN HER CHAIR W CALL LIGHT WITHIN REACH. VSS. WILL CONTINUE TO MONITOR.
[2020-06-13 04:00] VITALS: BP 100/54; PULSE 84; RESP 18; TEMP 36.9; O2SAT 89
[2020-06-13 06:00] VITALS: BMI 34.0
[2020-06-13 07:29] LABS: Basophils % 0.4 % (0.1-2.0); Eosinophils # 0.1 K/mm3 (0.0-0.4); Eosinophils % 0.8 % (0.1-12.0); Hematocrit 34.4 % (37.0-47.0); Hemoglobin 11.2 g/dL (12.2-16.2); Lymphocytes # 1.4 K/mm3 (0.7-4.5); Lymphocytes % 15.7 % (10-50); Mean Corpuscular HGB Conc 32.5 g/dL (31.8-35.4); Mean Corpuscular Volume 101.8 fl (81-99); Mean Platelet Volume 7.3 fl (7.4-10.4); Monocytes # 0.5 K/mm3 (0.1-1.0); Monocytes % 5.6 % (1.7-9.3); Neutrophils # 6.8 K/mm3 (1.8-7.8); Neutrophils % 77.5 % (37.0-80.0); Platelet Count 270 K/mm3 (142-424); Red Blood Count 3.38 M/mm3 (4.20-5.40); Red Cell Distribution Width 15.1 % (11.5-17.5); White Blood Count 8.8 K/mm3 (4.8-10.8)
[2020-06-13 07:36] LABS: Anion Gap 12.9 mEq/L (5-15); Blood Urea Nitrogen 36 mg/dl (7-17); Calcium 9.6 mg/dl (8.4-10.2); Carbon Dioxide 26 mmol/L (22.0-30.0); Chloride 98 mmol/L (98-107); Creatinine Clearance Estimated 57 mL/min (50-200); Estimated Glomerular Filt Rate 30 ml/min (>60); GFR (African American) 36 ML/MIN (>60); Glucose 207 mg/dl (74-100); Potassium 4.9 mmoL/L (3.5-5.1); Sodium 132 mmol/L (136-145)
[2020-06-13 08:00] VITALS: BP 115/67; PULSE 88; RESP 19; TEMP 36.4; O2SAT 88; O2SAT 95
--- NOTE | 2020-06-13 11:46 | PC.NURSE ---
Late entry: Contacted [facility] pulmonary clinical assistant about consult for this pt at 1311 yesterday.
[2020-06-13 12:00] VITALS: BP 99/47; PULSE 80; RESP 18; TEMP 36.9; O2SAT 90
--- NOTE | 2020-06-13 13:30 | HMH.ACPN2 ---
Internal Medicine - PN: Subj *Date: 06/13/20 *Time: 13:30 Interval history: relays signif anxiety overnight skin crawling poor sleep interscapular pain creat increasing from baseline 0.9 will judiciously hydrate adjusted levaquin dosage, approp for renal function hold metformin in favor of sliding scale coverage Exam Vital signs and Labs for Last 24 Hours: Temp Pulse Resp BP Pulse Ox 98.4 F 80 18 99/47 L 90 L 06/13/20 12:00 06/13/20 12:00 06/13/20 12:00 06/13/20 12:00 06/13/20 12:00 Laboratory Results - last 24 hr 06/12/20 13:26: WBC 10.1, RBC 3.43 L, Hgb 11.3 L, Hct 34.1 L, MCV 99.3 H, MCH 33.0 H, MCHC 33.2, RDW 15.2, Plt Count 295, MPV 7.4, Neut % (Auto) 79.8, Lymph % (Auto) 13.3, [place] % (Auto) 5.4, Eos % (Auto) 0.9, Baso % (Auto) 0.5, Neut # (Auto) 8.1 H, Lymph # (Auto) 1.3, [place] # (Auto) 0.6, Eos # (Auto) 0.1, Baso # (Auto) 0.1 06/12/20 13:26: Sodium 133 L, Potassium 4.4, Chloride 100, Carbon Dioxide 24, Anion Gap 13.4, BUN 29 H D, Creatinine 1.50 H D, Estimated Creat Clear 65, Estimated GFR 35 L, Est GFR ( Amer) 42 L D, Glucose 269 H D, Calcium 9.6, Magnesium 1.8, Total Bilirubin 0.3, AST 27, ALT 21, Alkaline Phosphatase 70, Total Protein 6.5, Albumin 3.6, Globulin 2.9, Albumin/Globulin Ratio 1.2 06/13/20 06:47: WBC 8.8, RBC 3.38 L, Hgb 11.2 L, Hct 34.4 L, MCV 101.8 H, MCH 33.0 H, MCHC 32.5, RDW 15.1, Plt Count 270, MPV 7.3 L, Neut % (Auto) 77.5, Lymph % (Auto) 15.7, [place] % (Auto) 5.6, Eos % (Auto) 0.8, Baso % (Auto) 0.4, Neut # (Auto) 6.8, Lymph # (Auto) 1.4, [place] # (Auto) 0.5, Eos # (Auto) 0.1, Baso # (Auto) 0.0 06/13/20 06:47: Sodium 132 L, Potassium 4.9, Chloride 98, Carbon Dioxide 26, Anion Gap 12.9, BUN 36 H, Creatinine 1.70 H, Estimated Creat Clear 57, Estimated GFR 30 L, Est GFR ( Amer) 36 L, Glucose 207 H D, Calcium 9.6 I & O for Last 24 hours: Intake & Output 06/10/20 06/11/20 06/12/20 06/13/20 23:59 23:59 23:59 23:59 Intake Total 480 / 480 1137 / 1137 Balance 480 / 480 1137 / 1137 Weight 242 lb 8.136 oz 242 lb 10 oz - Constitutional no acute distress, obese, cooperative, agitated - *Routine HEENT Exam Head: Present: normocephalic, atraumatic Eye: Present: EOMI, PERRL ENT: Present: mucous membranes moist - *Routine Neck Exam Present: supple. Absent: lymphadenopathy - *Routine Respiratory Exam Present: crackles. Absent: accessory muscle use, prolonged expiratory phase, wheezes Comments: very minimal at left base - *Routine Cardiovascular Exam Present: RRR - *Routine Abdominal Exam Present: soft, normoactive bowel sounds. Absent: tenderness - *Routine Extremities Exam Present: edema (non-pitting refusing abhay hose). Absent: cyanosis, clubbing, calf tenderness, ABHAY stockings - *Routine Skin Exam Present: warm. Absent: jaundice, rash - *Routine Neurological Exam Present: alert, oriented X3, moving all extremities, vision grossly intact, hearing grossly intact, normal speech. Absent: facial asymmetry - Routine Psychiatric Exam Present: anxious Assessment and Plan (1) Shortness of breath Current visit: Yes Status: Acute Category: Medical Code(s): R06.02 - Shortness of breath (2) Fatigue Current visit: Yes Status: Acute Qualifiers: Fatigue type: unspecified Qualified Code(s): R53.83 - Other fatigue Category: Medical Code(s): R53.83 - Other fatigue (3) Weakness Current visit: Yes Status: Acute Category: Medical Code(s): R53.1 - Weakness (4) AICD (automatic cardioverter/defibrillator) present Current visit: No Status: Acute Category: Surgical Code(s): Z95.810 - Presence of automatic (implantable) cardiac defibrillator (5) Pneumonia Current visit: No Status: Acute Qualifiers: Pneumonia type: due to unspecified organism Laterality: right Lung location: lower lobe of lung Qualified Code(s): J18.9 - Pneumonia, unspecified organism Category: Medical Code(s): J18.9 - Pneumonia
[2020-06-13 16:00] VITALS: BP 98/44; PULSE 90; RESP 17; TEMP 36.9; O2SAT 86
--- NOTE | 2020-06-13 17:34 | PC.NURSE ---
ALERT AND ORIENTED X3. PT HAS HAD MULTIPLE EPISODES OF CONFUSION AND BIZARRE BEHAVIOR. PT WILL SUDDENLY BECOME ANXIOUS FOR UNKNOWN REASONS AND BECOMES VERBALLY AGGRESSIVE TO STAFF AND THEN FORGETS ABOUT THE ENCOUNTER A FEW MINUTES LATER. PT WAS FOUND ROAMING AROUND HER ROOM 3X NAKED. PT ALSO TOLD STAFF THAT SHE GOT A GLOVE AND LOTION AND I PICKED MY POOP OUT. THIS SOCIAL WORK COORDINATOR TOLD DR. PHOENIX DURING ROUNDS THAT PT MAY NEED A STOOL SOFTNER/LAXATIVE, NO NEW ORDERS. ATIVAN AND PAIN MEDS ADMINISTERED PER MAR. LUNGS REMAIN DIMINISHED THROUGHOUT, O2 SATURATION HIGH 80'S TO MID 90'S ON 4L NC. PT FREQUENTLY TAKES OXYGEN OFF AGAINST THE ADVICE OF STAFF. ABDOMEN IS SOFT, ROUND, AND NON-TENDER WITH ACTIVE BS IN ALL QUADS. PT REPORTED A BM THIS SHIFT. PT HAS BEEN UP TO CHAIR FOR ENTIRE SHIFT EXCEPT FOR A 2 HOUR NAP AND PT STATES THAT IS THE FIRST TIME SHE HAS BEEN ABLE TO LIE IN BED FLAT WITHOUT FEELING SOB. PO INTAKE IS ADEQUATE, CONSUMED ROUGHLY 40-50% OF MEALS. VSS. NO DISTRESS NOTED. SAFETY MEASURES IN PLACE. EDUCATION ON PREVENTING FALLS AND IMPORTANCE OF TEDS PROVIDED TO PATIENT. WILL CONTINUE TO MONITOR
[2020-06-13 18:28] VITALS: O2SAT 90
[2020-06-13 20:00] VITALS: BP 122/69; PULSE 89; RESP 16; TEMP 36.7; O2SAT 90
[2020-06-13 21:41] LABS: POC Glucose,Bedside 230 (70-110)
[2020-06-14] VITALS (10 sets, daily range): BP systolic 112–132; BP diastolic 53–84; PULSE 69–110; RESP 16–28; TEMP 36.1–36.9; O2SAT 79–93; BMI 35.2
--- NOTE | 2020-06-14 03:01 | PC.NURSE ---
Alert and oriented x4. No episodes of confusion noted thus far this shift. Pt states she remembers being very anxious during the day and wasn't sure why. Requested to have Ativan at beginning of shift, along with Trazodone to help with resting. Pt rested well with eyes closed this shift while sitting up in chair leaned over bedside table with pillow. Pt refused to be reclined supine in chair and refused to lay in bed. States her back can not handle laying back or flat . Administered Oxycodone per MAR x1 at beginning of shift for c/o pain in back and neck region. No further c/o pain thus far. PERRLA. Bilateral hand high voltage electrician noted equal and strong. Cap refill < 3 seconds. +3 pitting edema noted to ble. Encouraged pt to elevate ble this shift, pt refused. Pulses difficult to palpate in bilateral feet, noted weak. Refused teds. Bilateral lungs noted diminished t/o upon auscultation. Tolerated 4 lnc well with no c/o soa. O2 range low 90's. Active bowel sounds noted in all 4 quads upon auscultation. Pt reports having 2 bowel movements on previous shift. Denies having a bm thus far this shift. Ambulates independently in room, tolerates well. VSS. Remains safe. Call light within reach. Will continue to monitor.
[2020-06-14 05:40] LABS: POC Glucose,Bedside 195 (70-110)
--- NOTE | 2020-06-14 05:52 | PC.NURSE ---
RA noted at 79% this am. 4 lnc reapplied. O2 sats now 90% on 4 lnc.
[2020-06-14 07:13] LABS: Basophils % 0.4 % (0.1-2.0); Eosinophils # 0.1 K/mm3 (0.0-0.4); Eosinophils % 0.8 % (0.1-12.0); Hematocrit 33.9 % (37.0-47.0); Hemoglobin 11.2 g/dL (12.2-16.2); Lymphocytes # 1.1 K/mm3 (0.7-4.5); Mean Corpuscular HGB Conc 33.2 g/dL (31.8-35.4); Mean Corpuscular Hemoglobin 33.2 pg (27.0-31.2); Mean Corpuscular Volume 100.2 fl (81-99); Mean Platelet Volume 8.1 fl (7.4-10.4); Monocytes # 0.4 K/mm3 (0.1-1.0); Monocytes % 6.3 % (1.7-9.3); Neutrophils # 5.1 K/mm3 (1.8-7.8); Neutrophils % 76.5 % (37.0-80.0); Platelet Count 207 K/mm3 (142-424); Red Blood Count 3.38 M/mm3 (4.20-5.40); Red Cell Distribution Width 15.5 % (11.5-17.5); White Blood Count 6.7 K/mm3 (4.8-10.8)
--- NOTE | 2020-06-14 08:09 | PC.NURSE ---
called office spoke with Farrah
[2020-06-14 08:29] LABS: Chloride 105 mmol/L (98-107)
[2020-06-14 08:30] LABS: Potassium 4.6 mmoL/L (3.5-5.1); Sodium 132 mmol/L (136-145)
[2020-06-14 08:33] LABS: Anion Gap 10.6 mEq/L (5-15); Blood Urea Nitrogen 45 mg/dl (7-17); Carbon Dioxide 21 mmol/L (22.0-30.0); Creatinine Clearance Estimated 72 mL/min (50-200); Estimated Glomerular Filt Rate 38 ml/min (>60); GFR (African American) 46 ML/MIN (>60); Glucose 189 mg/dl (74-100)
--- NOTE | 2020-06-14 09:49 | HMH.ACPN2 ---
Internal Medicine - PN: Subj *Date: 06/14/20 *Time: 08:20 Interval history: Patient sitting up in chair states not sleeping much. Exam Vital signs and Labs for Last 24 Hours: Temp Pulse Resp BP Pulse Ox 97.5 F L 69 18 125/84 90 L 06/14/20 08:00 06/14/20 08:00 06/14/20 08:00 06/14/20 08:00 06/14/20 08:00 Laboratory Results - last 24 hr 06/13/20 20:11: POC Glucose 230 H 06/14/20 05:28: POC Glucose 195 H 06/14/20 06:15: WBC 6.7, RBC 3.38 L, Hgb 11.2 L, Hct 33.9 L, MCV 100.2 H, MCH 33.2 H, MCHC 33.2, RDW 15.5, Plt Count 207, MPV 8.1, Neut % (Auto) 76.5, Lymph % (Auto) 16.0, [place] % (Auto) 6.3, Eos % (Auto) 0.8, Baso % (Auto) 0.4, Neut # (Auto) 5.1, Lymph # (Auto) 1.1, [place] # (Auto) 0.4, Eos # (Auto) 0.1, Baso # (Auto) 0.0 06/14/20 07:55: Sodium 132 L, Potassium 4.6, Chloride 105, Carbon Dioxide 21 L, Anion Gap 10.6, BUN 45 H, Creatinine 1.40 H, Estimated Creat Clear 72, Estimated GFR 38 L, Est GFR ( Amer) 46 L D, Glucose 189 H, Calcium 9.0 I & O for Last 24 hours: Intake & Output 06/11/20 06/12/20 06/13/20 06/14/20 11:59 11:59 11:59 11:59 Intake Total 240 / 240 1377 / 1377 3366 / 3366 Balance 240 / 240 1377 / 1377 3366 / 3366 Weight 242 lb 8.136 oz 242 lb 10 oz 252 lb 1 oz - Constitutional no acute distress - *Routine HEENT Exam Head: Present: normocephalic Eye: Present: PERRL ENT: Present: mucous membranes moist - *Routine Neck Exam Present: supple. Absent: lymphadenopathy - *Routine Respiratory Exam Present: crackles - *Routine Cardiovascular Exam Present: RRR - *Routine Abdominal Exam Present: soft, normoactive bowel sounds. Absent: tenderness - *Routine Extremities Exam Present: edema. Absent: cyanosis, clubbing - *Routine Skin Exam Present: warm. Absent: rash - *Routine Neurological Exam Present: alert, oriented X3 - Routine Psychiatric Exam Present: normal affect, depressed, anxious Assessment and Plan (1) Shortness of breath Current visit: Yes Status: Acute Category: Medical Code(s): R06.02 - Shortness of breath (2) Fatigue Current visit: Yes Status: Acute Qualifiers: Fatigue type: unspecified Qualified Code(s): R53.83 - Other fatigue Category: Medical Code(s): R53.83 - Other fatigue (3) Weakness Current visit: Yes Status: Acute Category: Medical Code(s): R53.1 - Weakness (4) AICD (automatic cardioverter/defibrillator) present Current visit: No Status: Acute Category: Surgical Code(s): Z95.810 - Presence of automatic (implantable) cardiac defibrillator (5) Pneumonia Current visit: No Status: Acute Qualifiers: Pneumonia type: due to unspecified organism Laterality: right Lung location: lower lobe of lung Qualified Code(s): J18.9 - Pneumonia, unspecified organism Category: Medical Code(s): J18.9 - Pneumonia, unspecified organism (6) Breast cancer Current visit: No Status: Chronic Qualifiers: Breast location: upper outer quadrant of breast Estrogen receptor status: unspecified Patient sex: female Laterality: left Qualified Code(s): C50.412 - Malignant neoplasm of upper-outer quadrant of left female breast Category: Medical Code(s): C50.919 - Malignant neoplasm of unspecified site of unspecified female breast (7) Chronic pain Current visit: No Status: Chronic Qualifiers: Chronic pain type: other chronic postprocedural pain Qualified Code(s): G89.28 - Other chronic postprocedural pain Category: Medical Code(s): G89.29 - Other chronic pain (8) Diabetes Current visit: No Status: Chronic Qualifiers: Diabetes mellitus type: type 2 Category: Medical Code(s): E11.9 - Type 2 diabetes mellitus without complications (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
--- NOTE | 2020-06-14 10:06 | HMH.PULMCON ---
*Admission Date: 06/11/20 *Reason for consult:: Hypoxic respiratory failure *History of present illness: Ms. Farfan is a 64-year-old with a history of breast cancer status post resection, recently completed chemotherapy as per the patient in January 2020, erosive arthritis, back pain was recently admitted to the hospital with acute worsening respiratory failure. 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 She was recently admitted to [facility] for dyspnea respiratory failure and bilateral infiltrates on the chest x-ray that was presumed to be non-resolving pneumonia/healthcare associated pneumonia and patient was started on vancomycin and cefepime and eventually improved and discharged on levofloxacin, readmitted the same day, with dizziness. Patient on her recent admission also had a CT scan which showed bilateral pulmonary nodules and significant mediastinal hilar lymphadenopathy concerning for metastatic disease. I personally spoke with Dr. Rapp and the plan was to see the patient today in his clinic however as she got readmitted will need to reevaluate the plan of care at this point of time. As patient needs EBUS FNA as soon as possible to plan further management. Pulmonary was consulted today for management of 4 chronic respiratory failure [facility] History Medical History: Reports:: Anxiety, Arrhythmia, Cancer, Congestive Heart Failure, Diabetes Mellitus Type 2, Home Oxygen, Hyperlipidemia, Hypertension, Internal Pacemaker (AICD) Denies:: Diabetes Mellitus Type 1 *Have you ever received a pneumonia vaccine?: Yes *Have you received a flu vaccine this season?: Yes Other Medical History: Reports: Arthritis, Chemotherapy, Radiation Therapy Laterality Cases: Left: Breast Biopsy, Lumpectomy, Mastectomy, Bilateral: Arthroscopy Knee, Tonsillectomy Other Surgeries: Yes: Cancer Surgery, Cholecystectomy, Pacemaker (AICD), Other (bilateral knee replacement) Amputation: No Fractures: Yes (right shoulder, left shoulder) - *Social History Smoking Status: Never smoker Alcohol Intake: never Substance Use Type: denies use *Occupational Status:: other Housing: apartment *Travel in the last 8 weeks: None - Psychiatric History Pschychiatric History:: Reports:: Anxiety Family Hx:: Cancer [facility] Pulmonology ROS - Review of Systems Review of systems:: unable to obtain, pertinent systems reviewed and negative unless documented below - Constitutional Reports body ache(s) - *Cardiovascular Reports chest pain - *Respiratory Respiratory: Yes non-productive cough, Yes dyspnea, Yes dyspnea on exertion, No excessive phlegm production, No coughing up blood - *Gastrointestinal Gastrointestingal: Reports: system reviewed and no additional complaints, except as docu - *Musculoskeletal Musculoskeletal: Reports system reviewed and no additional complaints, except as docu - *Neurologic Reports abnormal walking, Reports unsteadiness, Reports weakness, Denies abnormal hearing, Denies abnormal speech, Denies dizziness, Denies numbness, Denies fainting - Hematologic/Lymphatic Denies easy bleeding - Allergic/Immunologic Denies GI upset with certain foods Meds Home Medications Medication Instructions Recorded Confirmed Type allopurinol 300 mg tablet 300 mg PO DAILY 04/19/20 06/11/20 History aspirin 81 mg tablet,delayed 81 mg PO DAILY 04/19/20 06/11/20 History release carvedilol 25 mg tablet 25 mg PO BID 04/19/20 06/11/20 History lisinopril 5 mg tablet 5 mg PO DAILY 04/19/20 06/11/20 History potassium chloride 10 mEq 20 meq PO QID cap 04/19/20 06/11/20 History capsule,extended release torsemide 10 mg tablet 10 mg PO DAILY 04/19/20 06/11/20 History spironolactone 25 mg tablet 12.5 mg PO DAILY 04/27/20 06/11/20 History Doxycycline Hyclate [Vibramycin 100 mg PO BID
--- NOTE | 2020-06-14 10:53 | PC.NURSE ---
PT REQUIRES A ROLLING WALKER RATHER THAN A CANE TO SAFELY AMBULATE AT HOME R/T GAIT AND MOBILITY ISSUES.
--- NOTE | 2020-06-14 11:01 | SW/DCPLANNER ---
Addendum entered by Roxie Trevino 06/15/20 13:53: Patient continues to refuse placement at this time and prefers to discharge home with: home health (currently established with [facility]), a rolling walker and continuous home O2 (already established with [facility]). This will all be set up at time of discharge. Discharge date is unknown at this time. Original Note: I have spoke with this patient this morning regarding discharge plans. Patient is adamant to return home at discharge and has refused placement at this time. Patient stated that she has been to [facility] in the past and had a bad experience. I explained to patient that not all facilities are the same and there are several other placement options: again patient refused. Patient currently receives services from [facility]. I will follow up with [facility] at discharge. Patient also receives nighttime O2 from [facility]. If MD wants patient to have continuous O2 at discharge this will be ordered through [facility]. Patient has also requested a rolling walker at time of discharge. I will also order this through [facility] at time of discharge. Discharge date is unknown at this time. I will continue to follow up with kaylin, MD John [facility].
--- NOTE | 2020-06-14 12:04 | HMH.OTEV ---
OT Inpatient Evaluation Rehab OT IP Evaluation Start: 06/14/20 09:51 Freq: ONCE Status: Complete Protocol: Document 06/14/20 11:52 RUBIA (Rec: 06/14/20 12:04 RUBIA [id number]) Rehab OT IP Assessment Subjective History 64 year old female recently d/ c from [facility] then readmitted for PNA and SOB. Recurrence of breast cancer. Patient lives alone in 1 story apartment. Subjective I'm really tired and I can't do much. OT provided Patient with pillow to provide comfort and proper positioning while sitting upright in chair. Patient verbalize improve comfort and position. Instructed Patietn on AROM of UE to increase strengthening for ADLs and fx'l mobility. Patient verbalize to increase participation this p.m. Objective Patient Orientation Person,Place,Time,Name, Birthday,Day of Month,Month, Year,Situation Upper Extremity Gross ROM WFL Rehab OT IP prob,goals,plan Problems Date of Evaluation: 06/14/20 OT IP Problems Transfers,Balance,Self care, Safety Rehab Potential Rehab Potential Good Plan OT intervention Plan Bed Mobility,Transfers,Balance ,Self care OT Plan Frequency Daily Duration LOS Discharge Goals Bed Mobility Ability Standby Assistance Sit to Stand Chair Transfer Ability Contact Guard/Hand Hold Chair Transfer Ability Contact Guard/Hand Hold Chair Transfer Technique Sit to/from Ambulatory Chair Transfer Assistive Devices Standard Walker Self care skills fully toilet trained Lower Body Dressing Ability Standby Assistance Upper Body Dressing Ability Standby Assistance Bathing Ability Standby Assistance Performing Toilet Hygiene Ability Standby Assistance Overall Commode/Toilet Transfer Ability Standby Assistance Commode/Toilet Transfer Technique Sit to/from Ambulatory Commode/Toilet Transfer Assistive Drop Arm Commode Devices Discharge Plan OT Discharge Plan TBD. Possbile short term rehab prior to returning home. Eval Complexity Eval Charge Codes 14086 - Low Complexity G Codes G -code Required No
--- NOTE | 2020-06-14 16:51 | PC.NURSE ---
Called to bedside by RN for breathing treatment. Pt comfortably sitting up in the chair no SOB noted, SPO2 93% on 5 LPM NC, RR 18, HR 82, BBS clear and equal with good aeration. Pt does seem confused, spoke to RN regarding confusion. RN agrees that Pt does sound clear and equal with good SPO2 and agrees Albuterol treatment not indicated at this time. Will continue to monitor
[2020-06-14 17:01] LABS: Calcium, Ionized 5.4 mg/dL (4.5-5.6)
--- NOTE | 2020-06-14 17:04 | PC.NURSE ---
PT SCHEDULED FOR A HEAD CT THIS AFTERNNON PER DR PHOENIX, WHEN RADIOLOGY ARRIVED PT REFUSED TRANSPORT TO RAD DEPARTMENT FOR CT STATING THAT SHE WAS TO SHORT OF BREATH TO TOLERATE THE HEAD CT. THIS NURSE SPOKE WITH DR KINNEY WHO IS WIRE COILER FOR DR PHOENIX CONCERNING PT REFUSAL. THIS NURSE EDUCATED PT ON DURATION OF PROCEDURE AND THE AVAILABILITY OF HER ALBUTEROL RESCUE INHALER. PT CONTINUED TO REFUSE AND WAS SURE SHE COULD NOT TOLERATE THE SCAN. MD AWARE OF PT REFUSAL, WILL CONTINUE TO MONITOR.
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
--- NOTE | 2020-06-14 17:54 | PC.NURSE ---
PT A0*4 WITH EPISODES OF CONFUSION NOTED T/O SHIFT, PT ABLE TO FOLLOW COMMANDS AND RESPOND APPROPRIATELY IN CONVERSATION BUT AT TIMES HAS FLIGHT OF IDEAS, EPISODES OF ANXIETY NOTED, MEDICATED WITH ATIVAN PER MAR, EFFECTIVENESS NOTED, PT STATES THAT SHE IS SOB BUT 02 SATS SHOW 94% ON 4LNC, LUNG SOUNDS CLEAR ON AUSCULTATION, NO NEEDS AT THIS TIME WILL CONTINUE TO MONITOR.
[2020-06-14 19:00] LABS: POC Glucose,Bedside 143 (70-110)
[2020-06-14 19:01] LABS: POC Glucose,Bedside 199 (70-110)
--- NOTE | 2020-06-14 19:16 | PC.NURSE ---
report given to jesus
[2020-06-14 20:40] LABS: POC Glucose,Bedside 196 (70-110)
[2020-06-15] VITALS (19 sets, daily range): BP systolic 93–158; BP diastolic 41–86; PULSE 71–88; RESP 17–28; TEMP 36.4–36.9; O2SAT 91–99; BMI 33.5
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
--- NOTE | 2020-06-15 06:13 | PC.NURSE ---
Pt refused to use purewick to gather accurate output, has had 3 unmeasured urinations due to incontinence.
[2020-06-15 06:18] LABS: POC Glucose,Bedside 223 (70-110)
[2020-06-15 07:20] LABS: Chloride 102 mmol/L (98-107); Potassium 4.6 mmoL/L (3.5-5.1); Sodium 133 mmol/L (136-145)
[2020-06-15 07:23] LABS: Anion Gap 15.6 mEq/L (5-15); Blood Urea Nitrogen 45 mg/dl (7-17); Carbon Dioxide 20 mmol/L (22.0-30.0); Creatinine Clearance Estimated 80 mL/min (50-200); Estimated Glomerular Filt Rate 45 ml/min (>60); GFR (African American) 55 ML/MIN (>60)
[2020-06-15 07:24] LABS: Calcium 9.4 mg/dl (8.4-10.2); Glucose 208 mg/dl (74-100)
[2020-06-15 07:30] LABS: Basophils % 0.5 % (0.1-2.0); Eosinophils # 0.1 K/mm3 (0.0-0.4); Eosinophils % 0.8 % (0.1-12.0); Hematocrit 33.8 % (37.0-47.0); Hemoglobin 11.3 g/dL (12.2-16.2); Lymphocytes # 0.8 K/mm3 (0.7-4.5); Lymphocytes % 12.2 % (10-50); Mean Corpuscular HGB Conc 33.4 g/dL (31.8-35.4); Mean Corpuscular Hemoglobin 33.5 pg (27.0-31.2); Mean Corpuscular Volume 100.4 fl (81-99); Mean Platelet Volume 7.9 fl (7.4-10.4); Monocytes # 0.5 K/mm3 (0.1-1.0); Monocytes % 6.9 % (1.7-9.3); Neutrophils # 5.2 K/mm3 (1.8-7.8); Neutrophils % 79.6 % (37.0-80.0); Platelet Count 195 K/mm3 (142-424); Red Blood Count 3.37 M/mm3 (4.20-5.40); Red Cell Distribution Width 15.6 % (11.5-17.5); White Blood Count 6.6 K/mm3 (4.8-10.8)
--- NOTE | 2020-06-15 11:08 | PC.NURSE ---
Gave report to Willow Rae RN on pt.
[2020-06-15 11:41] LABS: POC Glucose,Bedside 147 (70-110)
--- NOTE | 2020-06-15 11:47 | PC.NURSE ---
If pt goes home she would benefit from a walker at home for safety.
--- NOTE | 2020-06-15 12:35 | XR_ITS ---
PROCEDURE: XR CHEST PORTABLE CLINICAL HISTORY: Worsening hypoxia COMPARISON: CR XR CHEST 2V from 06/08/2020 CR XR CHEST 2V from 06/10/[address] ANGIO CHEST from 06/10/2020 CR XR CHEST 2V from 06/12/2020 FINDINGS: There is cardiomegaly. Biventricular pacemaker with right atrial lead is present. There is diffuse bilateral alveolar disease which has progressed compared to the previous exam. Small left effusion is also noted. There is a right subclavian MediPort catheter present with the tip in the region the SVC. There are severe osteoarthritic changes of the shoulders. There is a calcific density overlying the left scapula and could be due to calcified node or a synovial osteo chondroma. IMPRESSION: Worsening bilateral alveolar disease consistent with worsening pneumonia with small left effusion Dictated by: Gerry Craig MD 06/15/2020 13:36 Gerry Craig MD in OV 06/15/2020 13:36
--- NOTE | 2020-06-15 12:37 | HMH.PULMPN ---
Internal Medicine - PN: Subj *Date: 06/15/20 *Time: 14:57 Interval history: Patient denies any new complaints except for her pain today. Patient's oxygen requirements were escalated to nonrebreather overnight, chest x-ray showed worsening infiltrates Exam Vital signs and Labs for Last 24 Hours: Temp Pulse Resp BP Pulse Ox 97.9 F 87 22 114/51 L 92 L 06/15/20 11:17 06/15/20 11:17 06/15/20 11:17 06/15/20 11:17 06/15/20 11:17 Laboratory Results - last 24 hr 06/12/20 13:26: Ionized Calcium 5.4 06/14/20 11:07: POC Glucose 199 H 06/14/20 16:59: POC Glucose 143 H 06/14/20 20:32: POC Glucose 196 H 06/15/20 06:11: POC Glucose 223 H 06/15/20 06:25: WBC 6.6, RBC 3.37 L, Hgb 11.3 L, Hct 33.8 L, MCV 100.4 H, MCH 33.5 H, MCHC 33.4, RDW 15.6, Plt Count 195, MPV 7.9, Neut % (Auto) 79.6, Lymph % (Auto) 12.2, [place] % (Auto) 6.9, Eos % (Auto) 0.8, Baso % (Auto) 0.5, Neut # (Auto) 5.2, Lymph # (Auto) 0.8, [place] # (Auto) 0.5, Eos # (Auto) 0.1, Baso # (Auto) 0.0 06/15/20 06:25: Sodium 133 L, Potassium 4.6, Chloride 102, Carbon Dioxide 20 L, Anion Gap 15.6 H, BUN 45 H, Creatinine 1.20 H, Estimated Creat Clear 80, Estimated GFR 45 L, Est GFR ( Amer) 55 L, Glucose 208 H, Calcium 9.4 06/15/20 11:35: POC Glucose 147 H I & O for Last 24 hours: Intake & Output 06/12/20 06/13/20 06/14/20 06/15/20 23:59 23:59 23:59 23:59 Intake Total 480 / 480 2847 / 2967 2384 / 2384 0 / 0 Output Total 200 / 200 Balance 480 / 480 2847 / 2967 2184 / 2184 0 / 0 Weight 242 lb 10 oz 251 lb 5.231 oz 240 lb Microbiology Reports for the Last 24 Hours: . - Constitutional mild distress - *Routine HEENT Exam Head: Present: normocephalic, atraumatic - *Routine Neck Exam Present: supple, full ROM. Absent: JVD, lymphadenopathy, thyromegaly - *Routine Respiratory Exam Present: decreased breath sounds, crackles. Absent: accessory muscle use, patient mechanically ventilated - *Routine Cardiovascular Exam Present: RRR, Normal S1, Normal S2 - *Routine Abdominal Exam Present: soft, normoactive bowel sounds. Absent: tenderness, guarding, organomegaly - *Routine Extremities Exam Absent: cyanosis, clubbing, edema Assessment and Plan (1) Shortness of breath Current visit: Yes Status: Acute Category: Medical Code(s): R06.02 - Shortness of breath (2) Fatigue Current visit: Yes Status: Acute Qualifiers: Fatigue type: unspecified Qualified Code(s): R53.83 - Other fatigue Category: Medical Code(s): R53.83 - Other fatigue (3) Weakness Current visit: Yes Status: Acute Category: Medical Code(s): R53.1 - Weakness (4) AICD (automatic cardioverter/defibrillator) present Current visit: No Status: Acute Category: Surgical Code(s): Z95.810 - Presence of automatic (implantable) cardiac defibrillator (5) Pneumonia Current visit: No Status: Acute Qualifiers: Pneumonia type: due to unspecified organism Laterality: right Lung location: lower lobe of lung Qualified Code(s): J18.9 - Pneumonia, unspecified organism Category: Medical Code(s): J18.9 - Pneumonia, unspecified organism (6) Breast cancer Current visit: No Status: Chronic Qualifiers: Breast location: upper outer quadrant of breast Estrogen receptor status: unspecified Patient sex: female Laterality: left Qualified Code(s): C50.412 - Malignant neoplasm of upper-outer quadrant of left female breast Category: Medical Code(s): C50.919 - Malignant neoplasm of unspecified site of unspecified female breast (7) Chronic pain Current visit: No Status: Chronic Qualifiers: Chronic pain type: other chronic postprocedural pain Qualified Code(s): G89.28 - Other chronic postprocedural pain Category: Medical Code(s): G89.29 - Other chronic pain (8) Diabetes Current visit: No Status: Chronic Qualifiers: Diabetes mellitus type: type 2 Category: Medical Code(s): E11.9 - Type 2 diabetes mellitus
[2020-06-15 13:16] LABS: ABG Base Excess -5.1 mmol/L (-2.4-2.3); ABG HCO3 21.4 mmhg (22.0-26.0); ABG Oxygen Saturation 93 % (90-100); ABG PCO2 45.1 mmhg (35.0-45.0); ABG PO2 72.2 mmhg (80-100); ABG TCO2 22.8 mmhg (23-27)
[2020-06-15 13:20] LABS: Allen's Test ACCEPTABLE; Oxygen NRB %; Source Right Radial
--- NOTE | 2020-06-15 14:21 | PC.NURSE ---
Pt moved to Stepdown at this time.
--- NOTE | 2020-06-15 16:18 | HMH.CNCARD ---
History of Present Illness Consult date: 06/15/20 Requesting physician: Ray Pack Consult reason: shortness of breath Chief complaint: SOA Additional Medical History:: 1. 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 Now on 3rd device (Medtronic) A. Echo, 05/2020, 1. Mild biatrial enlargement, normal left ventricular size, mild concentric left ventricular hypertrophy, visually estimated ejection fraction 45 to 50%, there is abnormal septal motion, diastolic parameters are inconclusive. 2. Mild mitral and tricuspid regurgitation. 3. No significant pericardial effusion noted B. History of cardiac cath's in past without significant CAD. 2. History of breast cancer A. s/p surgery, chemo and XRT 3. Anxiety 4. DM, type 2 5. Obesity 6. Osteoarthritis History of present illness: Patient was recently admitted and discharged for pneumonia and progressive dyspnea. Immediately upon discharge she experienced a bout of severe weakness, was reevaluated in the emergency room and subsequently readmitted. An infiltrative process was noted on chest x-ray, along with desaturations. Further imaging and evaluation revealed significant intrathoracic lymphadenopathy consistent with metastatic cancer. This is most likely from her breast cancer, she is status post resection with adjuvant chemo and XRT. She did have several positive nodes. She is actively followed by her oncologist in [facility]. Plans were made from pulmonary technology consultant to proceed with EBUS. Patient is extremely anxious over CT findings, and is very weakened, likely has become deconditioned. Prior to this hospital stay she had been a week in [place]. She has not been eating well, experiencing lots of nausea. HPI narrative: 64-year-old female presenting to the emergency department with weakness and shortness of breath. She was being discharged from the hospital when the episode happened. She was in her car getting ready to drive home. Could not figure out how to start her oxygen, uses 4L at all times. She felt short of breath, hot, sweaty, distressed. She was unable to stand. She tonked her car horn for help. Patient was admitted for shortness of breath, treated for pneumonia. Was also found to have recurrence of breast cancer with lung metastases. While in the emergency department she continues to feel somewhat short of breath and fatigued. Does not think she would be able to stand or walk or take care of herself at home. She lives alone. We will consider options for short-term placement for rehabilitation. The above per EMORY Izquierdo MD, and Dr. Pack Pt currently in bedside chair sleeping but awakens with verbal stimuli. Relates SOA but no chest pain. [facility] History Medical History: Reports:: Anxiety, Arrhythmia, Cancer, Congestive Heart Failure, Diabetes Mellitus Type 2, Home Oxygen, Hyperlipidemia, Hypertension, Internal Pacemaker (AICD) Denies:: Diabetes Mellitus Type 1 *Have you ever received a pneumonia vaccine?: Yes *Have you received a flu vaccine this season?: Yes Other Medical History: Reports: Arthritis, Chemotherapy, Radiation Therapy Laterality Cases: Left: Breast Biopsy, Lumpectomy, Mastectomy, Bilateral: Arthroscopy Knee, Tonsillectomy Other Surgeries: Yes: Cancer Surgery, Cholecystectomy, Pacemaker (AICD), Other (bilateral knee replacement) Amputation: No Fractures: Yes (right shoulder, left shoulder) - *Social History Smoking Status: Never smoker Alcohol Intake: never Substance Use Type: denies use *Occupational Status:: other Housing: apartment *Travel in the last 8 weeks: None - Psychiatric History Pschychiatric History:: Reports:: Anxiety Family Hx:: Cancer Meds Home Medications Medication Instructions Recorded Confirmed Type allopurinol 300 mg tablet 300 mg PO DAILY 04/19/20 06/11/20 History aspirin 81 mg tablet,delayed 81 mg PO DAILY 04/19/20 06/11/20 History release
--- NOTE | 2020-06-15 16:26 | PC.NURSE ---
Pt's daughter called at this time and was updated on pt's current status.
--- NOTE | 2020-06-15 17:38 | HMH.ACPN2 ---
Internal Medicine - PN: Subj *Date: 06/15/20 *Time: 17:38 Exam Vital signs and Labs for Last 24 Hours: Temp Pulse Resp BP Pulse Ox 97.6 F 85 19 111/86 94 L 06/15/20 15:57 06/15/20 16:01 06/15/20 15:57 06/15/20 15:57 06/15/20 16:11 Laboratory Results - last 24 hr 06/14/20 11:07: POC Glucose 199 H 06/14/20 16:59: POC Glucose 143 H 06/14/20 20:32: POC Glucose 196 H 06/15/20 06:11: POC Glucose 223 H 06/15/20 06:25: WBC 6.6, RBC 3.37 L, Hgb 11.3 L, Hct 33.8 L, MCV 100.4 H, MCH 33.5 H, MCHC 33.4, RDW 15.6, Plt Count 195, MPV 7.9, Neut % (Auto) 79.6, Lymph % (Auto) 12.2, [place] % (Auto) 6.9, Eos % (Auto) 0.8, Baso % (Auto) 0.5, Neut # (Auto) 5.2, Lymph # (Auto) 0.8, [place] # (Auto) 0.5, Eos # (Auto) 0.1, Baso # (Auto) 0.0 06/15/20 06:25: Sodium 133 L, Potassium 4.6, Chloride 102, Carbon Dioxide 20 L, Anion Gap 15.6 H, BUN 45 H, Creatinine 1.20 H, Estimated Creat Clear 80, Estimated GFR 45 L, Est GFR ( Amer) 55 L, Glucose 208 H, Calcium 9.4 06/15/20 11:35: POC Glucose 147 H 06/15/20 12:54: Specimen Source Right radial, O2 % Nrb, ABG pH 7.30 L, ABG pCO2 45.1 H, ABG pO2 72.2 L, ABG HCO3 21.4 L, ABG Total CO2 22.8 L, ABG O2 Saturation 93, ABG Base Excess -5.1 L, Gerry Test Acceptable I & O for Last 24 hours: Intake & Output 06/12/20 06/13/20 06/14/20 06/15/20 23:59 23:59 23:59 23:59 Intake Total 480 / 480 2847 / 2967 2384 / 2384 0 / 0 Output Total 200 / 200 Balance 480 / 480 2847 / 2967 2184 / 2184 0 / 0 Weight 242 lb 10 oz 251 lb 5.231 oz 240 lb Assessment and Plan (1) Shortness of breath Current visit: Yes Status: Acute Category: Medical Code(s): R06.02 - Shortness of breath (2) Fatigue Current visit: Yes Status: Acute Qualifiers: Fatigue type: unspecified Qualified Code(s): R53.83 - Other fatigue Category: Medical Code(s): R53.83 - Other fatigue (3) Weakness Current visit: Yes Status: Acute Category: Medical Code(s): R53.1 - Weakness (4) AICD (automatic cardioverter/defibrillator) present Current visit: No Status: Acute Category: Surgical Code(s): Z95.810 - Presence of automatic (implantable) cardiac defibrillator (5) Pneumonia Current visit: No Status: Acute Qualifiers: Pneumonia type: due to unspecified organism Laterality: right Lung location: lower lobe of lung Qualified Code(s): J18.9 - Pneumonia, unspecified organism Category: Medical Code(s): J18.9 - Pneumonia, unspecified organism (6) Breast cancer Current visit: No Status: Chronic Qualifiers: Breast location: upper outer quadrant of breast Estrogen receptor status: unspecified Patient sex: female Laterality: left Qualified Code(s): C50.412 - Malignant neoplasm of upper-outer quadrant of left female breast Category: Medical Code(s): C50.919 - Malignant neoplasm of unspecified site of unspecified female breast (7) Chronic pain Current visit: No Status: Chronic Qualifiers: Chronic pain type: other chronic postprocedural pain Qualified Code(s): G89.28 - Other chronic postprocedural pain Category: Medical Code(s): G89.29 - Other chronic pain (8) Diabetes Current visit: No Status: Chronic Qualifiers: Diabetes mellitus type: type 2 Category: Medical Code(s): E11.9 - Type 2 diabetes mellitus without complications (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
--- NOTE | 2020-06-15 19:52 | HMH.ACPN2 ---
Internal Medicine - PN: Subj *Date: 06/15/20 *Time: 20:29 Interval history: 64 YOF sitting up in chair, she reports she is feeling worse and staff reports she was having hallucinations at times. Her O2 demands increased and she was placed on a Venti Mask. Code status discussed w/ patient and she wishes to remain FULL CODE w/ all care. Explained the the importance of a head CT to the patient and the medical necessity of that, she verbalizes understanding and refuses test. Pulmonary has seen and rec: -CTA highly suspicious for metastatic malignant disease. This patient needs [facility] to evaluate the possible metastatic spread and to initiate appropriate therapy. -Continue levofloxacin to complete a total of 7-day course -Coordinate her appointments with Dr. Rapp as soon as possible after discharge has seen and rec: 1. Stop Trazodone. 2. STart SEroquel 25mg at bedtime for the hallucinations. Exam Vital signs and Labs for Last 24 Hours: Temp Pulse Resp BP Pulse Ox 97.6 F 85 19 111/86 94 L 06/15/20 15:57 06/15/20 16:01 06/15/20 15:57 06/15/20 15:57 06/15/20 16:11 Laboratory Results - last 24 hr 06/14/20 20:32: POC Glucose 196 H 06/15/20 06:11: POC Glucose 223 H 06/15/20 06:25: WBC 6.6, RBC 3.37 L, Hgb 11.3 L, Hct 33.8 L, MCV 100.4 H, MCH 33.5 H, MCHC 33.4, RDW 15.6, Plt Count 195, MPV 7.9, Neut % (Auto) 79.6, Lymph % (Auto) 12.2, [place] % (Auto) 6.9, Eos % (Auto) 0.8, Baso % (Auto) 0.5, Neut # (Auto) 5.2, Lymph # (Auto) 0.8, [place] # (Auto) 0.5, Eos # (Auto) 0.1, Baso # (Auto) 0.0 06/15/20 06:25: Sodium 133 L, Potassium 4.6, Chloride 102, Carbon Dioxide 20 L, Anion Gap 15.6 H, BUN 45 H, Creatinine 1.20 H, Estimated Creat Clear 80, Estimated GFR 45 L, Est GFR ( Amer) 55 L, Glucose 208 H, Calcium 9.4 06/15/20 11:35: POC Glucose 147 H 06/15/20 12:54: Specimen Source Right radial, O2 % Nrb, ABG pH 7.30 L, ABG pCO2 45.1 H, ABG pO2 72.2 L, ABG HCO3 21.4 L, ABG Total CO2 22.8 L, ABG O2 Saturation 93, ABG Base Excess -5.1 L, Gerry Test Acceptable I & O for Last 24 hours: Intake & Output 06/12/20 06/13/20 06/14/20 06/15/20 23:59 23:59 23:59 23:59 Intake Total 480 / 480 2847 / 2967 2384 / 2384 120 / 120 Output Total 200 / 200 500 / 500 Balance 480 / 480 2847 / 2967 2184 / 2184 -380 / -380 Weight 242 lb 10 oz 251 lb 5.231 oz 240 lb - Constitutional mild distress, morbidly obese - *Routine HEENT Exam Head: Present: normocephalic ENT: Present: mucous membranes moist. Absent: sinus tenderness - *Routine Neck Exam Present: trachea midline. Absent: JVD, tracheal deviation - *Routine Respiratory Exam Present: decreased breath sounds, rales. Absent: accessory muscle use Comments: RLL Rales - *Routine Cardiovascular Exam Present: RRR, murmur - *Routine Abdominal Exam Present: soft, normoactive bowel sounds, obese. Absent: firm - *Routine Extremities Exam Present: edema, pulses intact. Absent: calf tenderness - *Routine Skin Exam Present: intact, warm. Absent: cyanosis, erythema, jaundice - *Routine Neurological Exam Present: alert, altered mental status - Routine Psychiatric Exam Present: unable to assess Assessment and Plan (1) Shortness of breath Current visit: Yes Status: Acute Category: Medical Code(s): R06.02 - Shortness of breath (2) Fatigue Current visit: Yes Status: Acute Qualifiers: Fatigue type: unspecified Qualified Code(s): R53.83 - Other fatigue Category: Medical Code(s): R53.83 - Other fatigue (3) Weakness Current visit: Yes Status: Acute Category: Medical Code(s): R53.1 - Weakness (4) AICD (automatic cardioverter/defibrillator) present Current visit: No Status: Acute Category: Surgical Code(s): Z95.810 - Presence of automatic (implantable) cardiac defibrillator (5) Pneumonia Current visit: No Status: Acute Qualifiers: Pneumonia type: due to unspecified organism Laterality: right Lung locat
--- NOTE | 2020-06-15 20:09 | PC.NURSE ---
Pt placed on vapotherm @ 30L by RT per Dr. Kimball's orders, tolerating well. SPO2 has been in mid 90's. Has not complained of being SOA. PRN pain medication given per DEC. Requires assistance x1 when ambulating to BS for safety. Voiding w/o difficulty. NSR on teley. Refuses TEDS. No needs voiced. Report given to Donna Lanier RN.
[2020-06-15 20:38] LABS: POC Glucose,Bedside 167 (70-110)
[2020-06-16] VITALS (32 sets, daily range): BP systolic 58–132; BP diastolic 35–71; PULSE 70–90; RESP 10–21; TEMP 36.6–37.9; O2SAT 85–100; BMI 34.3
--- NOTE | 2020-06-16 00:34 | PC.NURSE ---
She has been sitting up in her chair. She is A&Ox4. She continues on vapotherm 30LPM 100% FiO2. She is a left limb alert r/t a hx of a mastectomy. She reports her last BM was on 06/14. She has voided per the [facility]. Her urine is yellow, clear. Transfers to the [facility] with assist x1. She refused her bedtime snack. She reports back and leg pain / but refused PRN medication. She reports a productive cough. Her home medications are locked in her bedside drawer.
--- NOTE | 2020-06-16 03:31 | PC.NURSE ---
Her O2 sat has decreased at times. She is mouth breathing. When awakened, her O2 sats increase. Paging respiratory at this time.
--- NOTE | 2020-06-16 03:59 | PC.NURSE ---
Vapotherm increased to 39LPM FiO2 100%. Sats increased to 90% when her mouth is closed. Have attempted awakened her several times. She awakens but falls back asleep. Non-productive cough noted.
[2020-06-16 04:25] LABS: POC Glucose,Bedside 191 (70-110)
[2020-06-16 05:18] LABS: ABG Base Excess -5.6 mmol/L (-2.4-2.3); ABG HCO3 22.6 mmhg (22.0-26.0); ABG Oxygen Saturation 89 % (90-100); ABG PO2 64.1 mmhg (80-100); ABG TCO2 24.4 mmhg (23-27)
[2020-06-16 05:21] LABS: Allen's Test Patient Unable; Oxygen 100% VAPOTH %; Source Right Radial
[2020-06-16 05:23] LABS: ABG PH 7.19 mmol/L (7.35-7.45)
[2020-06-16 05:24] LABS: ABG PCO2 59.9 mmhg (35.0-45.0)
--- NOTE | 2020-06-16 05:51 | PC.NURSE ---
Her O2 sats remained low at 85-86% on 30LPM FiO2 100% on the vapotherm; therfore, the vapotherm was increased to 39LPM FiO2 100%. She also was drowsy and typewriter tester was unable to keep her alert. ABG was drawn and critical pH and CO2 was noted. She is currently on bipap @ 100 FiO2. She is tolerating bipap well at this time. Her O2 sat is currently 97%. She is sitting up in her chair.
[2020-06-16 06:42] LABS: Chloride 101 mmol/L (98-107); Sodium 132 mmol/L (136-145)
[2020-06-16 06:43] LABS: Potassium 4.7 mmoL/L (3.5-5.1)
[2020-06-16 06:45] LABS: Blood Urea Nitrogen 51 mg/dl (7-17); Creatinine Clearance Estimated 51 mL/min (50-200); Estimated Glomerular Filt Rate 27 ml/min (>60); GFR (African American) 32 ML/MIN (>60)
[2020-06-16 06:46] LABS: Anion Gap 12.7 mEq/L (5-15); Calcium 9.4 mg/dl (8.4-10.2); Carbon Dioxide 23 mmol/L (22.0-30.0); Glucose 188 mg/dl (74-100)
[2020-06-16 06:49] LABS: Basophils % 0.5 % (0.1-2.0); Eosinophils # 0.1 K/mm3 (0.0-0.4); Eosinophils % 1.3 % (0.1-12.0); Hematocrit 33.5 % (37.0-47.0); Hemoglobin 10.8 g/dL (12.2-16.2); Lymphocytes % 14.8 % (10-50); Mean Corpuscular HGB Conc 32.3 g/dL (31.8-35.4); Mean Corpuscular Hemoglobin 33.8 pg (27.0-31.2); Mean Corpuscular Volume 104.6 fl (81-99); Mean Platelet Volume 8.1 fl (7.4-10.4); Monocytes # 0.4 K/mm3 (0.1-1.0); Monocytes % 6.3 % (1.7-9.3); Neutrophils % 77.1 % (37.0-80.0); Platelet Count 214 K/mm3 (142-424); Red Cell Distribution Width 15.7 % (11.5-17.5); White Blood Count 6.4 K/mm3 (4.8-10.8)
[2020-06-16 07:46] LABS: ABG Base Excess -4.2 mmol/L (-2.4-2.3); ABG HCO3 23.8 mmhg (22.0-26.0); ABG Oxygen Saturation 93 % (90-100); ABG PO2 73.9 mmhg (80-100); ABG TCO2 25.7 mmhg (23-27)
[2020-06-16 07:48] LABS: Allen's Test ACCEPTABLE; Oxygen 80 %; Source R RADIAL; Tidal Volume BIPAP 16/10
[2020-06-16 07:51] LABS: ABG PCO2 62.1 mmhg (35.0-45.0)
--- NOTE | 2020-06-16 08:02 | XR_ITS ---
PROCEDURE: XR CHEST PORTABLE CLINICAL HISTORY: SOA, increased o2 demand, abn ABG COMPARISON: 06/15/2020 FINDINGS: There remains bilateral extensive pneumonia which is worse on the left compared to the right. The consolidation appears somewhat worse in the left lower lobe compared to the previous exam. Right upper and right lower lobe pneumonia is noted and may be slightly improved in the right upper lobe unchanged in the right lower lobe. Left pleural effusion also present. There is cardiomegaly with biventricular pacemaker with right atrial lead. MediPort catheter remains in place. There are degenerative changes of the shoulders as previously described No acute bony abnormalities. IMPRESSION: Extensive bilateral pneumonia slightly worse on the left with left effusion and slightly improved in the right upper lobe. Dictated by: Gerry Craig MD 06/16/2020 08:43 Gerry Craig MD in [place] 06/16/2020 08:43
--- NOTE | 2020-06-16 08:17 | HMH.ACPN2 ---
Internal Medicine - PN: Subj *Date: 06/16/20 *Time: 12:37 Interval history: 64-year-old lethargic female patient resting in bed. During the night her oxygenation requirements increased she was tried on Vapotherm and was unable to maintain sats greater than 90%, she was then placed on BiPAP currently BiPAP settings are 16/80% O2 and saturations are 91%. She is definitely more lethargic today than she was yesterday. Azithromycin was started for pneumonia chest x-ray it appeared to be worsening and will review pulmonology notes. She did receive 20 mg of Lasix IV last night with very little diuresis and this morning received 20 mg of Lasix IV again.. Dr. Pack. Contacted daughter last night and updated her on mother's condition. Daughter is currently in the and her is in the also and deployed to [place]. Dr. Pack had verbal discussion with camp manager this morning and will update daughter regarding mother's condition. Exam Vital signs and Labs for Last 24 Hours: Temp Pulse Resp BP Pulse Ox 97.9 F 72 17 98/47 L 97 06/16/20 08:00 06/16/20 07:27 06/16/20 06:00 06/16/20 06:00 06/16/20 07:27 Laboratory Results - last 24 hr 06/15/20 11:35: POC Glucose 147 H 06/15/20 12:54: Specimen Source Right radial, O2 % Nrb, ABG pH 7.30 L, ABG pCO2 45.1 H, ABG pO2 72.2 L, ABG HCO3 21.4 L, ABG Total CO2 22.8 L, ABG O2 Saturation 93, ABG Base Excess -5.1 L, Gerry Test Acceptable 06/15/20 20:07: POC Glucose 167 H 06/16/20 04:16: POC Glucose 191 H 06/16/20 05:10: Specimen Source Right radial, O2 % 100% vapoth, ABG pH 7.19 L*, ABG pCO2 59.9 H, ABG pO2 64.1 L, ABG HCO3 22.6, ABG Total CO2 24.4, ABG O2 Saturation 89 L, ABG Base Excess -5.6 L, Gerry Test Patient unable 06/16/20 05:25: WBC 6.4, RBC 3.20 L, Hgb 10.8 L, Hct 33.5 L, MCV 104.6 H, MCH 33.8 H, MCHC 32.3, RDW 15.7, Plt Count 214, MPV 8.1, Neut % (Auto) 77.1, Lymph % (Auto) 14.8, [place] % (Auto) 6.3, Eos % (Auto) 1.3, Baso % (Auto) 0.5, Neut # (Auto) 5.0, Lymph # (Auto) 1.0, [place] # (Auto) 0.4, Eos # (Auto) 0.1, Baso # (Auto) 0.0 06/16/20 05:25: Sodium 132 L, Potassium 4.7, Chloride 101, Carbon Dioxide 23, Anion Gap 12.7, BUN 51 H, Creatinine 1.90 H D, Estimated Creat Clear 51, Estimated GFR 27 L, Est GFR ( Amer) 32 L D, Glucose 188 H, Calcium 9.4 06/16/20 07:15: Specimen Source R radial, O2 % 80, ABG pH 7.20 L*, ABG pCO2 62.1 H, ABG pO2 73.9 L, ABG HCO3 23.8, ABG Total CO2 25.7, ABG O2 Saturation 93, ABG Base Excess -4.2 L, Gerry Test Acceptable, Tidal Volume Bipap 16/10 I & O for Last 24 hours: Intake & Output 06/13/20 06/14/20 06/15/20 06/16/20 23:59 23:59 23:59 23:59 Intake Total 2847 / 2967 2384 / 2384 220 / 220 970 / 970 Output Total 200 / 200 600 / 600 Balance 2847 / 2967 2184 / 2184 -380 / -380 970 / 970 Weight 242 lb 10 oz 251 lb 5.231 oz 240 lb 245 lb 6.4 oz - Constitutional mild distress, obese, somnolent - *Routine HEENT Exam Head: Present: normocephalic ENT: Present: mucous membranes dry - *Routine Neck Exam Present: trachea midline. Absent: JVD, tracheal deviation - *Routine Respiratory Exam Present: rales - *Routine Cardiovascular Exam Present: RRR - *Routine Abdominal Exam Present: soft, normoactive bowel sounds, obese. Absent: firm - *Routine Extremities Exam Present: edema, pulses intact. Absent: cyanosis, calf tenderness - *Routine Skin Exam Present: intact, warm. Absent: cyanosis, erythema - *Routine Neurological Exam Present: altered mental status - Routine Psychiatric Exam Present: unable to assess Assessment and Plan (1) Shortness of breath Current visit: Yes Status: Acute Category: Medical Code(s): R06.02 - Shortness of breath (2) Fatigue Current visit: Yes Status: Acute Qualifiers: Fatigue type: unspecified Qualified Code(s): R53.83 - Other fatigue Category: Medical Code(s): R53.83 - Other fatigue (3) Weakness Current visit: Yes Status: Acute Category: Medical
[2020-06-16 11:14] LABS: Blood Urea Nitrogen 55 mg/dl (7-17); Calcium 9.3 mg/dl (8.4-10.2); Carbon Dioxide 23 mmol/L (22.0-30.0); Chloride 100 mmol/L (98-107); Creatinine Clearance Estimated 55 mL/min (50-200); Estimated Glomerular Filt Rate 28 ml/min (>60); GFR (African American) 34 ML/MIN (>60); Glucose 163 mg/dl (74-100); Lactic Acid 0.7 mmol/L (0.7-2.1); Sodium 132 mmol/L (136-145)
[2020-06-16 11:30] LABS: ABG HCO3 21.6 mmhg (22.0-26.0); ABG Oxygen Saturation 94 % (90-100); ABG PH 7.23 mmol/L (7.35-7.45); ABG PO2 76.9 mmhg (80-100); ABG TCO2 23.2 mmhg (23-27)
[2020-06-16 11:32] LABS: Allen's Test Acceptable; Oxygen 80 %; Source R Radial
[2020-06-16 11:35] LABS: ABG PCO2 52.9 mmhg (35.0-45.0)
[2020-06-16 12:05] LABS: POC Glucose,Bedside 196 (70-110)
--- NOTE | 2020-06-16 12:07 | HMH.PULMPN ---
Internal Medicine - PN: Subj *Date: 06/16/20 *Time: 12:07 Interval history: Patient denies any new complaints today, appear more lethargic this morning. Patient's oxygen requirements worsened overnight. This morning patient was found to have hypercarbic respiratory failure and was placed on BiPAP. With FiO2 of 50% and settings of 10/16. Exam Vital signs and Labs for Last 24 Hours: Temp Pulse Resp BP Pulse Ox 97.9 F 78 17 98/47 L 96 06/16/20 08:00 06/16/20 11:09 06/16/20 06:00 06/16/20 06:00 06/16/20 08:00 Laboratory Results - last 24 hr 06/15/20 12:54: Specimen Source Right radial, O2 % Nrb, ABG pH 7.30 L, ABG pCO2 45.1 H, ABG pO2 72.2 L, ABG HCO3 21.4 L, ABG Total CO2 22.8 L, ABG O2 Saturation 93, ABG Base Excess -5.1 L, Gerry Test Acceptable 06/15/20 20:07: POC Glucose 167 H 06/16/20 04:16: POC Glucose 191 H 06/16/20 05:10: Specimen Source Right radial, O2 % 100% vapoth, ABG pH 7.19 L*, ABG pCO2 59.9 H, ABG pO2 64.1 L, ABG HCO3 22.6, ABG Total CO2 24.4, ABG O2 Saturation 89 L, ABG Base Excess -5.6 L, Gerry Test Patient unable 06/16/20 05:25: WBC 6.4, RBC 3.20 L, Hgb 10.8 L, Hct 33.5 L, MCV 104.6 H, MCH 33.8 H, MCHC 32.3, RDW 15.7, Plt Count 214, MPV 8.1, Neut % (Auto) 77.1, Lymph % (Auto) 14.8, [place] % (Auto) 6.3, Eos % (Auto) 1.3, Baso % (Auto) 0.5, Neut # (Auto) 5.0, Lymph # (Auto) 1.0, [place] # (Auto) 0.4, Eos # (Auto) 0.1, Baso # (Auto) 0.0 06/16/20 05:25: Sodium 132 L, Potassium 4.7, Chloride 101, Carbon Dioxide 23, Anion Gap 12.7, BUN 51 H, Creatinine 1.90 H D, Estimated Creat Clear 51, Estimated GFR 27 L, Est GFR ( Amer) 32 L D, Glucose 188 H, Calcium 9.4 06/16/20 07:15: Specimen Source R radial, O2 % 80, ABG pH 7.20 L*, ABG pCO2 62.1 H, ABG pO2 73.9 L, ABG HCO3 23.8, ABG Total CO2 25.7, ABG O2 Saturation 93, ABG Base Excess -4.2 L, Gerry Test Acceptable, Tidal Volume Bipap 30/0706/16/20 10:45: Specimen Source R radial, O2 % 80, ABG pH 7.23 L*, ABG pCO2 52.9 H, ABG pO2 76.9 L, ABG HCO3 21.6 L, ABG Total CO2 23.2, ABG O2 Saturation 94, ABG Base Excess -6.0 L, Gerry Test Acceptable, Tidal Volume Bipap 01/0806/16/20 10:53: Sodium 132 L, Potassium 5.0, Chloride 100, Carbon Dioxide 23, Anion Gap 14.0, BUN 55 H, Creatinine 1.80 H, Estimated Creat Clear 55, Estimated GFR 28 L, Est GFR ( Amer) 34 L, Glucose 163 H, Calcium 9.3 06/16/20 10:53: Lactate 0.7 06/16/20 11:53: POC Glucose 196 H I & O for Last 24 hours: Intake & Output 06/13/20 06/14/20 06/15/20 06/16/20 23:59 23:59 23:59 23:59 Intake Total 2847 / 2967 2384 / 2384 220 / 220 970 / 970 Output Total 200 / 200 600 / 600 Balance 2847 / 2967 2184 / 2184 -380 / -380 970 / 970 Weight 242 lb 10 oz 251 lb 5.231 oz 240 lb 245 lb 6.4 oz Microbiology Reports for the Last 24 Hours: Patient urine cultures from last admission grew VRE Radiology Reports for the Last 24 Hours: No new data. X-ray from yesterday showed bilateral worsening infiltrates - Constitutional mild distress - *Routine HEENT Exam Head: Present: normocephalic, atraumatic - *Routine Neck Exam Absent: lymphadenopathy, thyromegaly - *Routine Respiratory Exam Present: decreased breath sounds Comments: Bilateral decreased and coarse breath sounds. - *Routine Cardiovascular Exam Present: RRR, Normal S1, Normal S2 - *Routine Abdominal Exam Absent: tenderness, distended, organomegaly - *Routine Extremities Exam Absent: cyanosis, clubbing, edema Assessment and Plan (1) Shortness of breath Current visit: Yes Status: Acute Category: Medical Code(s): R06.02 - Shortness of breath (2) Fatigue Current visit: Yes Status: Acute Qualifiers: Fatigue type: unspecified Qualified Code(s): R53.83 - Other fatigue Category: Medical Code(s): R53.83 - Other fatigue (3) Weakness Current visit: Yes Status: Acute Category: Medical Code(s): R53.1 - Weakness (4) AICD (automatic cardioverter/defibrillator) present Current visit: No Status: Acute Catego
--- NOTE | 2020-06-16 16:05 | XR_ITS ---
PROCEDURE: XR CHEST PORTABLE CLINICAL HISTORY: Post Intubation, ET tube placement COMPARISON: CT CT ANGIO CHEST from 06/10/2020 CR XR CHEST 2V from 06/12/2020 CR XR CHEST PORTABLE from 06/15/2020 CR XR CHEST PORTABLE from 06/16/2020 FINDINGS: 1416 hours. Endotracheal tube has been inserted. The tip is in good position 5 cm above the gavin at the T3 level. Biventricular pacemaker and right atrial lead are present from left subclavian approach. Right subclavian MediPort catheter is present with tip in the region the SVC. Extensive consolidation once again noted in the left lower lobe with effusion. The right-sided pneumonia is worse in the right mid and upper lung zone and in the right lower lobe compared to prior study of the same day. IMPRESSION: 1. Endotracheal tube in good position. 2. Bilateral pneumonia worse on the right at with associated left-sided effusion 3. Endotracheal tube tip position called and given to Manohar in the ICU 06/16/2020 at 4:20 p.m. Dictated by: Gerry Craig MD 06/16/2020 16:25 Gerry Craig MD in [facility] 06/16/2020 16:25
[2020-06-16 16:24] LABS: ABG Base Excess -6.9 mmol/L (-2.4-2.3); ABG HCO3 20.4 mmhg (22.0-26.0); ABG Oxygen Saturation 90 % (90-100); ABG PCO2 48.1 mmhg (35.0-45.0); ABG PH 7.25 mmol/L (7.35-7.45); ABG PO2 62.5 mmhg (80-100); ABG TCO2 21.9 mmhg (23-27)
[2020-06-16 16:27] LABS: Oxygen 80 %
[2020-06-16 16:28] LABS: Tidal Volume 450; Vent Rate 18
[2020-06-16 16:35] LABS: Allen's Test ACCEPTABLE; PEEP 6; Source R RADIAL
--- NOTE | 2020-06-16 16:58 | PC.NURSE ---
5713 See Ventilator flow sheet for changes made per Dr. Kimball.
--- NOTE | 2020-06-16 17:58 | PC.NURSE ---
1517- Patient intubated per [facility] Anesthesia at bedside, 7.5 ET tube, 22 at the lip, vent settings per RT, patient tolerated intubation well, propofol drip started to maintain sedation at rass score-1 to 1, After intubation patient was hypotensive, Dr Pack contacted and patient started on levophed gtt per md order. OG placed after intubation 53 at the lip.
--- NOTE | 2020-06-16 18:11 | PC.NURSE ---
1620- ET tube in good position per cxr
--- NOTE | 2020-06-16 18:49 | PC.NURSE ---
1550-No manual pressure taken in Left arm for ICU status due to limb alert, previous mastectomy
--- NOTE | 2020-06-16 19:26 | PC.NURSE ---
report given to iliana
[2020-06-16 20:34] LABS: POC Glucose,Bedside 166 (70-110)
--- NOTE | 2020-06-16 23:07 | PC.NURSE ---
Propofol weaned to 40mcg/kg/min @ 2300.
[2020-06-17] VITALS (61 sets, daily range): BP systolic 85–146; BP diastolic 45–77; PULSE 70–115; RESP 18–19; TEMP 37.2–37.6; O2SAT 88–99; BMI 36.0
--- NOTE | 2020-06-17 00:47 | PC.NURSE ---
FiO2 increased to 85% at this time.
--- NOTE | 2020-06-17 00:54 | PC.NURSE ---
FiO2 increased at this time.
--- NOTE | 2020-06-17 02:27 | PC.NURSE ---
She has not opened her eyes but has moved her arms and legs. She has nodded her head to her daughter's questions. Even nodded yes that she recognized the pattern chart writer's voice from the previous night. She is being turned and repositioned q 2 hours and PRN. Oral suctioning q 2 hours and PRN. Thin, clear secretions noted. She is voiding per f/c. Urine is yellow, clear. O2 has increased since lasix has been given. Gag reflex is present. Paced on telemetry. She is NPO. She has a #14 Fr OG and 53 @ the lip on the right sidde. 7.5 ETT is 22 @ the lip and 20 at the gum line. Vent settings are: Assist Control, TV 420, PEEP 10, PS 10, R 18, and FiO2 @ 90%. FiO2 was increased from 80% to 90%. Her O2 sat is 96% at this time. Plan to wean FiO2 if O2 sats remain above 92%. She is a left limb alert. She continues on contact precautions r/t VRE in her urine.
--- NOTE | 2020-06-17 02:44 | PC.NURSE ---
FiO2 weaned to 85% at this time.
--- NOTE | 2020-06-17 03:33 | PC.NURSE ---
Spoke with Dr. Pack whom stated he would like her SBP to be above 105.
--- NOTE | 2020-06-17 04:01 | PC.NURSE ---
She is on 90% FiO2 at this time. She continues to nod yes or no to questions. She is able to follow commands such as being asked to move her arms and then her legs. Gag reflex is present. She needs frequent suctioning r/t secretions.
--- NOTE | 2020-06-17 05:00 | XR_ITS ---
PROCEDURE: XR CHEST PORTABLE CLINICAL HISTORY: Pt intubated Respiratory failure, pneumonia COMPARISON: CT CT ANGIO CHEST from 06/10/2020 CR XR CHEST PORTABLE from 06/15/2020 CR XR CHEST PORTABLE from 06/16/2020 CR XR CHEST PORTABLE from 06/16/2020 FINDINGS: 0514 hours Endotracheal tube is present. The tip is in good position 5 cm above the gavin. Nasogastric tube is also noted. The tip of the NG tube is not visible on the study but is below the GE junction. Biventricular pacemaker noted with right atrial lead. Right subclavian MediPort catheter present with tip in the region the SVC. Cardiomegaly with left effusion with diffuse bilateral alveolar opacification left more extensive than right overall not significantly changed. IMPRESSION: Tubes and lines are in good position with no change in the bilateral airspace disease with left effusion Dictated by: Gerry Craig MD 06/17/2020 05:24 Gerry Craig MD in [facility] 06/17/2020 05:24
[2020-06-17 05:58] LABS: ABG Base Excess -7.2 mmol/L (-2.4-2.3); ABG HCO3 17.8 mmhg (22.0-26.0); ABG Oxygen Saturation 97 % (90-100); ABG PCO2 30.5 mmhg (35.0-45.0); ABG PH 7.39 mmol/L (7.35-7.45); ABG PO2 94.8 mmhg (80-100); ABG TCO2 18.8 mmhg (23-27)
[2020-06-17 06:06] LABS: Allen's Test Patient Unable; Oxygen 90 %; PEEP 10; Source Right Radial; Tidal Volume 420; Vent Rate 18
[2020-06-17 06:36] LABS: POC Glucose,Bedside 217 (70-110)
[2020-06-17 08:15] LABS: Basophils % 0.3 % (0.1-2.0); Eosinophils # 0.1 K/mm3 (0.0-0.4); Eosinophils % 1.3 % (0.1-12.0); Hematocrit 31.6 % (37.0-47.0); Hemoglobin 10.4 g/dL (12.2-16.2); Lymphocytes # 0.9 K/mm3 (0.7-4.5); Lymphocytes % 9.9 % (10-50); Mean Corpuscular HGB Conc 32.9 g/dL (31.8-35.4); Mean Corpuscular Hemoglobin 32.9 pg (27.0-31.2); Mean Corpuscular Volume 99.9 fl (81-99); Monocytes # 0.5 K/mm3 (0.1-1.0); Monocytes % 5.5 % (1.7-9.3); Neutrophils # 7.6 K/mm3 (1.8-7.8); Neutrophils % 83.1 % (37.0-80.0); Platelet Count 262 K/mm3 (142-424); Red Blood Count 3.16 M/mm3 (4.20-5.40); White Blood Count 9.1 K/mm3 (4.8-10.8)
[2020-06-17 08:32] LABS: Chloride 102 mmol/L (98-107); Potassium 3.7 mmoL/L (3.5-5.1); Sodium 134 mmol/L (136-145)
[2020-06-17 08:35] LABS: Blood Urea Nitrogen 48 mg/dl (7-17); Creatinine Clearance Estimated 61 mL/min (50-200); Estimated Glomerular Filt Rate 30 ml/min (>60); GFR (African American) 36 ML/MIN (>60)
[2020-06-17 08:36] LABS: Anion Gap 15.7 mEq/L (5-15); Calcium 9.2 mg/dl (8.4-10.2); Carbon Dioxide 20 mmol/L (22.0-30.0); Glucose 224 mg/dl (74-100)
[2020-06-17 08:45] LABS: Microscopic, Urine URINE MICROSCOPIC (MICROSCOPIC)
[2020-06-17 09:08] LABS: Appearance,Urine CLEAR (Clear); Bilirubin,Urine Negative (Negative); Blood, Urine 2+ (Negative); Color,Urine YELLOW (Yellow); Glucose,Urine (UA) Negative (Negative); Ketones,Urine Negative (Negative); Leukocyte Esterase,Urine Negative (Negative); Nitrate,Urine Negative (Negative); Protein,Urine Negative (Negative); Urobilinogen,Urine 0.2 EU/dl (0.2)
[2020-06-17 09:44] LABS: Bacteria,Urine Trace /lpf
--- NOTE | 2020-06-17 10:09 | HMH.BRONCH ---
- Procedure: Date: 06/17/20 Patient Date of :: 1955 Procedure Performed:: Bronchoscopy with bronchoalveolar lavage Indications:: Non-resolving pneumonia in immunocompromised patient Performing Provider:: Jose David Kimball MD Referring Provider:: Dr. Pack Sedation:: Patient already receiving 45 of propofol, increased to 65 for the procedure and in addition to that patient received 25 MCG of fentanyl Procedure:: Clean diagnostic bronchoscope was introduced through ET tube and advanced into the trachea and main gavin. Airways were examined up to the subsegmental bronchi. A lot of copious thin secretions noted. No evidence of mucous plugging, hemoptysis or any old blood clots noted. No thick secretions noted. Bronchoalveolar lavage were performed in the left middle lobe. 80 cc of saline was instilled in total with a 30 cc return. BAL differential, BAL Gram stain culture along with PARISH and AFB cultures and cytopathology orders were placed. Will follow with the results. Findings:: Please see the procedure note Recommendations:: We will follow with the results. Continue with current antibiotic regimen. Complications:: None Estimated blood obtained (mL): 0
--- NOTE | 2020-06-17 10:52 | HMH.CONS ---
*Admission Date: 06/11/20 *History of present illness: 64 yo wf with h/o breast cancer dx in 2016 initially T2N0 triple negative. s/p left mastectomy with 1 out of 9 lymph nodes positive. in 09/2016 she was treated with carbo/taxotere. not tolerated well. in 12/2016 treated with weekly taxol stopped in 01/2017 due to neuropathy. on observation until 03/2018 dx with recurrent /metastatic breast cancer to left axilla 5/6 lymph nodes positive. she was treated with radiation. it was recommend she be treated with xeloda after radiation which started 07/30/2019 with 8 cycles planned and completed 01/2020. she had genetic testing which was negative. She is followed at [facility] by Dr. Ge. she was admitted to the hospital at [facility] 05/26-06/01 for pna and uti. she was discharged on doxy and prednisone. she is admitted now to [facility] for worsening resp distress and was intubated last night. I spoke with pulneha and he just completed bronch. she is on broad spectrum abx for uti and pna. there is concern of progressive cancer. [facility] History Medical History: Reports:: Anxiety, Arrhythmia, Cancer, Congestive Heart Failure, Diabetes Mellitus Type 2, Home Oxygen, Hyperlipidemia, Hypertension, Internal Pacemaker (AICD) Denies:: Diabetes Mellitus Type 1 *Have you ever received a pneumonia vaccine?: Yes *Have you received a flu vaccine this season?: Yes Other Medical History: Reports: Arthritis, Chemotherapy, Radiation Therapy Laterality Cases: Left: Breast Biopsy, Lumpectomy, Mastectomy, Bilateral: Arthroscopy Knee, Tonsillectomy Other Surgeries: Yes: Cancer Surgery, Cholecystectomy, Pacemaker (AICD), Other (bilateral knee replacement) Amputation: No Fractures: Yes (right shoulder, left shoulder) - *Social History Smoking Status: Never smoker Alcohol Intake: never Substance Use Type: denies use *Occupational Status:: other Housing: apartment Household Members: none *Travel in the last 8 weeks: None - Psychiatric History Pschychiatric History:: Reports:: Anxiety Family Hx:: Cancer Review of Systems - *Neurologic Reports abnormal walking, Reports unsteadiness, Reports weakness, Denies abnormal hearing, Denies abnormal speech, Denies dizziness, Denies numbness, Denies fainting Meds Home Medications Medication Instructions Recorded Confirmed Type allopurinol 300 mg tablet 300 mg PO DAILY 04/19/20 06/11/20 History aspirin 81 mg tablet,delayed 81 mg PO DAILY 04/19/20 06/11/20 History release carvedilol 25 mg tablet 25 mg PO BID 04/19/20 06/11/20 History lisinopril 5 mg tablet 5 mg PO DAILY 04/19/20 06/11/20 History potassium chloride 10 mEq 20 meq PO QID cap 04/19/20 06/11/20 History capsule,extended release torsemide 10 mg tablet 10 mg PO DAILY 04/19/20 06/11/20 History spironolactone 25 mg tablet 12.5 mg PO DAILY 04/27/20 06/11/20 History Doxycycline Hyclate [Vibramycin 100 mg PO BID 06/08/20 06/11/20 History 100mg Capsule] LORazepam [Lorazepam] 0.5 mg PO DAILYP PRN 06/08/20 06/11/20 History Metformin HCl [Glucophage] 500 mg PO BIDWM 06/08/20 06/11/20 History Mometasone/Formoterol [Dulera 100 2 puffs IH BID 06/08/20 06/11/20 History Mcg-5 Mcg Inhaler] Albuterol Sulfate [Albuterol 2 puffs IH Q4HP PRN 06/09/20 06/11/20 History Sulfate Hfa] Oxycodone HCl/Acetaminophen 1 tab PO Q6HP PRN 06/09/20 06/11/20 History [Percocet 5/325mg tablet] Pantoprazole Sodium [Protonix 40mg 40 mg PO BID 06/09/20 06/11/20 History tablet] Allergies Allergy/AdvReac Type Severity Reaction Status Date / Time thiopental [From Pentothal] Allergy Severe Seizure Verified 06/11/20 20:53 ondansetron [From Zofran] Allergy Mild Unknown Verified 06/14/20 10:26 allergy reaction Exam Vital signs and Labs for Last 24 Hours: Temp Pulse Resp BP Pulse Ox 99.4 F 85 18 122/66 95 06/17/20 08:00 06/17/20 10:12 06/17/20 08:00 06/17/20 08:00 06/17/20 10:12 Laboratory Results - last 24 hr 09/0
--- NOTE | 2020-06-17 11:56 | HMH.ACPN ---
Internal Medicine - PN: Subj *Date: 06/17/20 *Time: 11:56 Exam Vital signs and Labs for Last 24 Hours: Temp Pulse Resp BP Pulse Ox 99.4 F 81 18 117/64 95 06/17/20 08:00 06/17/20 11:00 06/17/20 11:00 06/17/20 11:00 06/17/20 11:00 Laboratory Results - last 24 hr 06/16/20 11:53: POC Glucose 196 H 06/16/20 16:22: Specimen Source R radial, O2 % 80, ABG pH 7.25 L, ABG pCO2 48.1 H, ABG pO2 62.5 L, ABG HCO3 20.4 L, ABG Total CO2 21.9 L, ABG O2 Saturation 90, ABG Base Excess -6.9 L, Gerry Test Acceptable, Vent Rate 18, Tidal Volume 450, PEEP 6 06/16/20 20:09: POC Glucose 166 H 06/17/20 06:00: Specimen Source Right radial, O2 % 90, ABG pH 7.39, ABG pCO2 30.5 L, ABG pO2 94.8, ABG HCO3 17.8 L, ABG Total CO2 18.8 L, ABG O2 Saturation 97, ABG Base Excess -7.2 L, Gerry Test Patient unable, Vent Rate 18, Tidal Volume 420, PEEP 10 06/17/20 06:28: POC Glucose 217 H 06/17/20 08:00: WBC 9.1 D, RBC 3.16 L, Hgb 10.4 L, Hct 31.6 L, MCV 99.9 H, MCH 32.9 H, MCHC 32.9, RDW 16.0, Plt Count 262, MPV 7.0 L, Neut % (Auto) 83.1 H, Lymph % (Auto) 9.9 L, [place] % (Auto) 5.5, Eos % (Auto) 1.3, Baso % (Auto) 0.3, Neut # (Auto) 7.6, Lymph # (Auto) 0.9, [place] # (Auto) 0.5, Eos # (Auto) 0.1, Baso # (Auto) 0.0 06/17/20 08:00: Sodium 134 L, Potassium 3.7 D, Chloride 102, Carbon Dioxide 20 L, Anion Gap 15.7 H, BUN 48 H, Creatinine 1.70 H, Estimated Creat Clear 61, Estimated GFR 30 L, Est GFR ( Amer) 36 L, Glucose 224 H D, Calcium 9.2 06/17/20 08:38: Urine Color Yellow, Urine Appearance Clear, Urine pH 5.0, Ur Specific [place] 1.020, Urine Protein Negative, Urine Glucose (UA) Negative, Urine Ketones Negative, Urine Blood 2+, Urine Nitrate Negative, Urine Bilirubin Negative, Urine Urobilinogen 0.2, Ur Leukocyte Esterase Negative, Urine RBC 5-10, Urine WBC 5-10, Ur Squamous Epith Cells 3-5, Urine Bacteria Trace, Hyaline Casts 5-10 I & O for Last 24 hours: Intake & Output 06/14/20 06/15/20 06/16/20 06/17/20 23:59 23:59 23:59 23:59 Intake Total 2384 / 2384 220 / 220 3222 / 3345 1420.053 / 1420.053 Output Total 200 / 200 600 / 600 1285 / 1385 2145 / 2145 Balance 2184 / 2184 -380 / -380 1937 / 1960 -724.947 / -724.947 Weight 114 kg 108.862 kg 111.312 kg 116.8 kg Assessment and Plan (1) Shortness of breath Current visit: Yes Status: Acute Category: Medical Code(s): R06.02 - Shortness of breath (2) Fatigue Current visit: Yes Status: Acute Qualifiers: Fatigue type: unspecified Qualified Code(s): R53.83 - Other fatigue Category: Medical Code(s): R53.83 - Other fatigue (3) Weakness Current visit: Yes Status: Acute Category: Medical Code(s): R53.1 - Weakness (4) AICD (automatic cardioverter/defibrillator) present Current visit: No Status: Acute Category: Surgical Code(s): Z95.810 - Presence of automatic (implantable) cardiac defibrillator (5) Pneumonia Current visit: No Status: Acute Qualifiers: Pneumonia type: due to unspecified organism Laterality: right Lung location: lower lobe of lung Qualified Code(s): J18.9 - Pneumonia, unspecified organism Category: Medical Code(s): J18.9 - Pneumonia, unspecified organism (6) Breast cancer Current visit: No Status: Chronic Qualifiers: Breast location: upper outer quadrant of breast Estrogen receptor status: unspecified Patient sex: female Laterality: left Qualified Code(s): C50.412 - Malignant neoplasm of upper-outer quadrant of left female breast Category: Medical Code(s): C50.919 - Malignant neoplasm of unspecified site of unspecified female breast (7) Chronic pain Current visit: No Status: Chronic Qualifiers: Chronic pain type: other chronic postprocedural pain Qualified Code(s): G89.28 - Other chronic postprocedural pain Category: Medical Code(s): G89.29 - Other chronic pain (8) Diabetes Current visit: No Status: Chronic Qualifiers: Diabetes mellitus type: type 2 Category: Medical Cod
--- NOTE | 2020-06-17 12:10 | DIET.NUTRFU ---
Nutrition consult received to initiate TF. Pt found to have hypercarbic respiratory failure per MD progress note. Pt has been intubated and is receiving propofol. PO intake during beginning of admission fair with decline prior to being intubated. GFR with low with small improvement. Pt blood glucose 196, 166, 217, 224. Recommend beginning pt on Pulmocare at 25mL/hr continuous increasing as tolerated to a goal rate of 45mL/hr. Pulmocare at a goal rate of 45mL/hr cont will provide pt 1620 kcal, 68g pro, 114 g carb, and 848mL free H2O per day. Pulmocare will provide pt appropriate calories with lower amount of carbohydrates that may help reduce diet-induced carbon dioxide production. Will closely monitor pt fluids and adjust accordingly. Will monitor pt TF tolerance to determine if TF needs to be adjusted or changed.
[2020-06-17 12:33] LABS: POC Glucose,Bedside 208 (70-110)
--- NOTE | 2020-06-17 12:48 | HMH.ACPN2 ---
Internal Medicine - PN: Subj *Date: 06/17/20 *Time: 19:50 Interval history: intubated, sedated received iv lasix overnight following desaturation slated for bronch later today remains on broad spectrum abx looks comfortable on sedation levophed gtt started yesterday, titrated Exam Vital signs and Labs for Last 24 Hours: Temp Pulse Resp BP Pulse Ox 99.4 F 87 18 122/64 99 06/17/20 08:00 06/17/20 12:00 06/17/20 12:00 06/17/20 12:00 06/17/20 12:00 Laboratory Results - last 24 hr 06/16/20 16:22: Specimen Source R radial, O2 % 80, ABG pH 7.25 L, ABG pCO2 48.1 H, ABG pO2 62.5 L, ABG HCO3 20.4 L, ABG Total CO2 21.9 L, ABG O2 Saturation 90, ABG Base Excess -6.9 L, Gerry Test Acceptable, Vent Rate 18, Tidal Volume 450, PEEP 6 06/16/20 20:09: POC Glucose 166 H 06/17/20 06:00: Specimen Source Right radial, O2 % 90, ABG pH 7.39, ABG pCO2 30.5 L, ABG pO2 94.8, ABG HCO3 17.8 L, ABG Total CO2 18.8 L, ABG O2 Saturation 97, ABG Base Excess -7.2 L, Gerry Test Patient unable, Vent Rate 18, Tidal Volume 420, PEEP 10 06/17/20 06:28: POC Glucose 217 H 06/17/20 08:00: WBC 9.1 D, RBC 3.16 L, Hgb 10.4 L, Hct 31.6 L, MCV 99.9 H, MCH 32.9 H, MCHC 32.9, RDW 16.0, Plt Count 262, MPV 7.0 L, Neut % (Auto) 83.1 H, Lymph % (Auto) 9.9 L, [place] % (Auto) 5.5, Eos % (Auto) 1.3, Baso % (Auto) 0.3, Neut # (Auto) 7.6, Lymph # (Auto) 0.9, [place] # (Auto) 0.5, Eos # (Auto) 0.1, Baso # (Auto) 0.0 06/17/20 08:00: Sodium 134 L, Potassium 3.7 D, Chloride 102, Carbon Dioxide 20 L, Anion Gap 15.7 H, BUN 48 H, Creatinine 1.70 H, Estimated Creat Clear 61, Estimated GFR 30 L, Est GFR ( Amer) 36 L, Glucose 224 H D, Calcium 9.2 06/17/20 08:38: Urine Color Yellow, Urine Appearance Clear, Urine pH 5.0, Ur Specific [place] 1.020, Urine Protein Negative, Urine Glucose (UA) Negative, Urine Ketones Negative, Urine Blood 2+, Urine Nitrate Negative, Urine Bilirubin Negative, Urine Urobilinogen 0.2, Ur Leukocyte Esterase Negative, Urine RBC 5-10, Urine WBC 5-10, Ur Squamous Epith Cells 3-5, Urine Bacteria Trace, Hyaline Casts 5-10 06/17/20 11:18: POC Glucose 208 H I & O for Last 24 hours: Intake & Output 06/14/20 06/15/20 06/16/20 06/17/20 23:59 23:59 23:59 23:59 Intake Total 2384 / 2384 220 / 220 3222 / 3345 1437.053 / 1437.053 Output Total 200 / 200 600 / 600 1285 / 1385 2375 / 2375 Balance 2184 / 2184 -380 / -380 1937 / 1960 -937.947 / -937.947 Weight 251 lb 5.231 oz 240 lb 245 lb 6.4 oz 257 lb 8 oz - Constitutional somnolent, obtunded - *Routine HEENT Exam Eye: Absent: conjunctival icterus - *Routine Neck Exam Present: trachea midline. Absent: tracheal deviation - *Routine Respiratory Exam Present: patient mechanically ventilated - *Routine Cardiovascular Exam Present: RRR - *Routine Abdominal Exam Present: soft, normoactive bowel sounds. Absent: tenderness - *Routine Extremities Exam Present: edema. Absent: cyanosis, clubbing, extremity cold to touch - *Routine Skin Exam Present: warm. Absent: rash - *Routine Neurological Exam Absent: alert - Routine Psychiatric Exam Present: unable to assess Assessment and Plan (1) Shortness of breath Current visit: Yes Status: Acute Category: Medical Code(s): R06.02 - Shortness of breath (2) Fatigue Current visit: Yes Status: Acute Qualifiers: Fatigue type: unspecified Qualified Code(s): R53.83 - Other fatigue Category: Medical Code(s): R53.83 - Other fatigue (3) Weakness Current visit: Yes Status: Acute Category: Medical Code(s): R53.1 - Weakness (4) AICD (automatic cardioverter/defibrillator) present Current visit: No Status: Acute Category: Surgical Code(s): Z95.810 - Presence of automatic (implantable) cardiac defibrillator (5) Pneumonia Current visit: No Status: Acute Qualifiers: Pneumonia type: due to unspecified organism Laterality: right Lung location: lower lobe of lung Qualified Code(s): J18.9 - Pneumonia, unspecified o
--- NOTE | 2020-06-17 13:56 | HMH.PULMPN ---
Internal Medicine - PN: Subj *Date: 06/17/20 *Time: 13:56 Interval history: No acute events overnight. Exam Vital signs and Labs for Last 24 Hours: Temp Pulse Resp BP Pulse Ox 99.4 F 88 18 122/64 95 06/17/20 08:00 06/17/20 12:00 06/17/20 12:00 06/17/20 12:00 06/17/20 12:00 Laboratory Results - last 24 hr 06/16/20 16:22: Specimen Source R radial, O2 % 80, ABG pH 7.25 L, ABG pCO2 48.1 H, ABG pO2 62.5 L, ABG HCO3 20.4 L, ABG Total CO2 21.9 L, ABG O2 Saturation 90, ABG Base Excess -6.9 L, Gerry Test Acceptable, Vent Rate 18, Tidal Volume 450, PEEP 6 06/16/20 20:09: POC Glucose 166 H 06/17/20 06:00: Specimen Source Right radial, O2 % 90, ABG pH 7.39, ABG pCO2 30.5 L, ABG pO2 94.8, ABG HCO3 17.8 L, ABG Total CO2 18.8 L, ABG O2 Saturation 97, ABG Base Excess -7.2 L, Gerry Test Patient unable, Vent Rate 18, Tidal Volume 420, PEEP 10 06/17/20 06:28: POC Glucose 217 H 06/17/20 08:00: WBC 9.1 D, RBC 3.16 L, Hgb 10.4 L, Hct 31.6 L, MCV 99.9 H, MCH 32.9 H, MCHC 32.9, RDW 16.0, Plt Count 262, MPV 7.0 L, Neut % (Auto) 83.1 H, Lymph % (Auto) 9.9 L, [place] % (Auto) 5.5, Eos % (Auto) 1.3, Baso % (Auto) 0.3, Neut # (Auto) 7.6, Lymph # (Auto) 0.9, [place] # (Auto) 0.5, Eos # (Auto) 0.1, Baso # (Auto) 0.0 06/17/20 08:00: Sodium 134 L, Potassium 3.7 D, Chloride 102, Carbon Dioxide 20 L, Anion Gap 15.7 H, BUN 48 H, Creatinine 1.70 H, Estimated Creat Clear 61, Estimated GFR 30 L, Est GFR ( Amer) 36 L, Glucose 224 H D, Calcium 9.2 06/17/20 08:38: Urine Color Yellow, Urine Appearance Clear, Urine pH 5.0, Ur Specific [place] 1.020, Urine Protein Negative, Urine Glucose (UA) Negative, Urine Ketones Negative, Urine Blood 2+, Urine Nitrate Negative, Urine Bilirubin Negative, Urine Urobilinogen 0.2, Ur Leukocyte Esterase Negative, Urine RBC 5-10, Urine WBC 5-10, Ur Squamous Epith Cells 3-5, Urine Bacteria Trace, Hyaline Casts 5-10 06/17/20 11:18: POC Glucose 208 H I & O for Last 24 hours: Intake & Output 06/14/20 06/15/20 06/16/20 06/17/20 23:59 23:59 23:59 23:59 Intake Total 2384 / 2384 220 / 220 3222 / 3345 1787.053 / 1787.053 Output Total 200 / 200 600 / 600 1285 / 1385 2775 / 2775 Balance 2184 / 2184 -380 / -380 1937 / 1960 -987.947 / -987.947 Weight 251 lb 5.231 oz 240 lb 245 lb 6.4 oz 257 lb 8 oz Microbiology Reports for the Last 24 Hours: Microbiology 06/17/20 11:30 Bronchial Lavage - Final Not Reportable 06/17/20 11:30 Bronchial Lavage - Final Not Reportable Radiology Reports for the Last 24 Hours: chest x-ray reviewed, stable pulmonary infiltrates. ET tube 4 cm above the gavin in correct position. - Constitutional severe distress - *Routine HEENT Exam Head: Present: atraumatic Comments: 7.5 size endotracheal tube in place - *Routine Neck Exam Present: supple. Absent: lymphadenopathy, thyromegaly - *Routine Respiratory Exam Present: patient mechanically ventilated Comments: Bilateral coarse breath sounds - *Routine Cardiovascular Exam Present: RRR, Normal S1, Normal S2 - *Routine Abdominal Exam Present: soft, normoactive bowel sounds. Absent: tenderness, distended - *Routine Extremities Exam Present: edema. Absent: cyanosis, clubbing Assessment and Plan (1) Shortness of breath Current visit: Yes Status: Acute Category: Medical Code(s): R06.02 - Shortness of breath (2) Fatigue Current visit: Yes Status: Acute Qualifiers: Fatigue type: unspecified Qualified Code(s): R53.83 - Other fatigue Category: Medical Code(s): R53.83 - Other fatigue (3) Weakness Current visit: Yes Status: Acute Category: Medical Code(s): R53.1 - Weakness (4) AICD (automatic cardioverter/defibrillator) present Current visit: No Status: Acute Category: Surgical Code(s): Z95.810 - Presence of automatic (implantable) cardiac defibrillator (5) Pneumonia Current visit: No Status: Acute Qualifiers: Pneu
[2020-06-17 16:44] LABS: POC Glucose,Bedside 206 (70-110)
--- NOTE | 2020-06-17 17:10 | PC.NURSE ---
RT examined pt due to low saturation, turned 02 from 95% to 100% with pt sats still at 92. Gave breathing treatment and lavage sxn pt still no improvement on sats at this time.
--- NOTE | 2020-06-17 17:32 | XR_ITS ---
PROCEDURE: XR CHEST PORTABLE CLINICAL HISTORY: increased o2 demand, vomiting with tube feeding COMPARISON: CT CT ANGIO CHEST from 06/10/2020 CR XR CHEST PORTABLE from 06/16/2020 CR XR CHEST PORTABLE from 06/16/2020 CR XR CHEST PORTABLE from 06/17/2020 FINDINGS: Endotracheal tube tip is approximately 6 cm above the gavin. Nasogastric tube tip appears to be at the GE junction.. No change cardiac pacemaker device and right subclavian MediPort catheter. There is diffuse bilateral alveolar opacification which is worse consistent with diffuse bilateral pneumonia or pulmonary edema or a combination there of. The moderate-sized left effusion which also appears worse. IMPRESSION: 1. Worsening bilateral pneumonia and left-sided effusion. 2. Tubes and lines present as described above Dictated by: Gerry Craig MD 06/18/2020 05:55 Gerry Craig MD in [facility] 06/18/2020 05:55
--- NOTE | 2020-06-17 19:21 | PC.NURSE ---
1200- titrated levophed to 8mcg and propofol to 40mcg 1300- titrated levophed to 6mcgand propofol to 35mcg 1400 titrated levophed to 4mcg 1500- titrated levphed to 5mcg 1600- titrated propofol to 40mcg 1700- titrated propofol to 45mcg 1800- titrated levophed to 6mcg 1900- titrated levophed to 8mcg
--- NOTE | 2020-06-17 19:25 | PC.NURSE ---
Pt remains intubated with 7.5 ET tube 22@lip, OG secured in place 53@lip, current vent settings 100% FiO2, TV 420, Peep 12, Rate 18, Assist Control. Pt has rested well this shift, has been lightly sedated with propofol, has been able to nod yes or no appropriately at times, perrla, pupils 2+, gag reflex intact, lung sounds reveal scattered fine crackles, diminished in bl bases, HR reg, 2+ pitting edema noted peripherally, abd soft and noontender, active bowel sounds in all quads, attempted to start tube feedings this shift but patient was unable to tolerate and vomited tube feeding around ET tube, CXR per MD order, FC patent and draining clear yellow urine, remains on levophed for pressure support, see previous nursing noted for titrations, turned Q2H, oral care and suctioning provided Q2h, will continue to monitor.
--- NOTE | 2020-06-17 20:02 | PC.NURSE ---
dr barry speaking to family at bedside
--- NOTE | 2020-06-17 22:00 | PC.NURSE ---
RT turned PEEP from 10 to 12 improving sats to 93%
--- NOTE | 2020-06-17 22:08 | PC.NURSE ---
2045 propofol 50mcq/kg/min
[2020-06-17 23:42] LABS: POC Glucose,Bedside 241 (70-110)
[2020-06-18] VITALS (72 sets, daily range): BP systolic 87–119; BP diastolic 47–94; PULSE 76–101; RESP 16–18; TEMP 36.4–37.3; O2SAT 90–98; BMI 36.3
--- NOTE | 2020-06-18 01:14 | PC.NURSE ---
patient deep sedated on 50 mcq/kg/min and resting comfortably. while diprivan at 45 mcq/kg/min patient will awaken into a coughing episode and reach for tube. at 0000 o2 sats 96% on 100% fio2. fio2 decreased to 95%. at 0100 patient has maintained o2 sats 95-96% so fio2 decreased again to 90% fio2.
--- NOTE | 2020-06-18 02:35 | PC.NURSE ---
PEEP turned down from 12 to 10, pt maintaining sats greater than 94 at this time. Will continue to monitor
--- NOTE | 2020-06-18 02:38 | PC.NURSE ---
patient sats sustaining 95-96% on 90% fio2, peep decreased by RT to 10.
--- NOTE | 2020-06-18 03:37 | PC.NURSE ---
tube feeding still on hold, very faint hypoactive bowel sounds. ogt aucultated, able to hear air in abdomen and throat. unable to obtain gastric secretions. secured at 53cm at lip
--- NOTE | 2020-06-18 03:41 | PC.NURSE ---
sats sustaining 94-95% on 90% fio2 and peep of 10.
--- NOTE | 2020-06-18 03:41 | PC.NURSE ---
0315 levophed drip decreased to 7 mqc/min
--- NOTE | 2020-06-18 04:55 | PC.NURSE ---
shift summary: received patient on 100 percent fio2 and 12 of peep. ett secured at 22cm at the lip, auscultated all lung dyson for ett place- breath sounds present. ogt secured at 53 cm at the lip, unable to obtain any gastric content throughout shift, auscultated for placement, able to hear air in abdomen but also in oral airway, tube feeding held for further xray confirmation. patient moving and coughing while on ventilator, sedation increased to 50 mcq/kg/min. goal for sedation and ventilator titration discussed with daughter at bedside and dr. barry. patient has rested without any incident of fighting against ventilator. have been able to titrate fio2 down to 90% and peep down to 10 while maintaining sats 94-95% as requested by senior ui designer. levophed is currently at 7mcq/min with map greater 65 and sys greater than 100. limb alert bracelet and fall risk bracelet changed due to increased edema. nowak draining clear yellow urine.
[2020-06-18 05:41] LABS: POC Glucose,Bedside 237 (70-110)
[2020-06-18 06:23] LABS: Chloride 100 mmol/L (98-107); Potassium 3.4 mmoL/L (3.5-5.1); Sodium 131 mmol/L (136-145)
[2020-06-18 06:26] LABS: Anion Gap 16.4 mEq/L (5-15); Blood Urea Nitrogen 47 mg/dl (7-17); Carbon Dioxide 18 mmol/L (22.0-30.0); Creatinine Clearance Estimated 69 mL/min (50-200); Estimated Glomerular Filt Rate 35 ml/min (>60); GFR (African American) 42 ML/MIN (>60); Lipase 25 U/L (23-300)
[2020-06-18 06:27] LABS: Calcium 8.9 mg/dl (8.4-10.2); Glucose 236 mg/dl (74-100)
[2020-06-18 06:29] LABS: Basophils % 0.3 % (0.1-2.0); Eosinophils # 0.1 K/mm3 (0.0-0.4); Eosinophils % 0.7 % (0.1-12.0); Hematocrit 30.4 % (37.0-47.0); Hemoglobin 10.3 g/dL (12.2-16.2); Lymphocytes # 1.1 K/mm3 (0.7-4.5); Lymphocytes % 13.1 % (10-50); Mean Corpuscular Hemoglobin 33.6 pg (27.0-31.2); Mean Corpuscular Volume 98.7 fl (81-99); Mean Platelet Volume 8.1 fl (7.4-10.4); Monocytes # 0.6 K/mm3 (0.1-1.0); Monocytes % 6.8 % (1.7-9.3); Neutrophils # 6.5 K/mm3 (1.8-7.8); Neutrophils % 79.2 % (37.0-80.0); Platelet Count 214 K/mm3 (142-424); Red Blood Count 3.08 M/mm3 (4.20-5.40); Red Cell Distribution Width 15.8 % (11.5-17.5); White Blood Count 8.2 K/mm3 (4.8-10.8)
[2020-06-18 06:30] LABS: ABG HCO3 18.9 mmhg (22.0-26.0); ABG Oxygen Saturation 96 % (90-100); ABG PCO2 31.6 mmhg (35.0-45.0); ABG PH 7.39 mmol/L (7.35-7.45); ABG TCO2 19.8 mmhg (23-27)
[2020-06-18 06:36] LABS: Allen's Test acceptable; Oxygen 90 %; PEEP 10; Source R RADIAL; Tidal Volume 420; Vent Rate 18
--- NOTE | 2020-06-18 07:05 | PC.NURSE ---
discussed bathing patient with daughter. due to current o2 requirement as well as increased o2 demand during bathing, bath was held this shift.
--- NOTE | 2020-06-18 10:55 | PC.NURSE ---
levophed decreased from 7 to 6mcg/kg/min
--- NOTE | 2020-06-18 11:12 | HMH.PULMPN ---
Internal Medicine - PN: Subj *Date: 06/18/20 *Time: 11:12 Interval history: No acute events overnight. Patient yesterday when he had an episode of tachycardia and hypotension and had a bout of vomiting. Vent settings remain stable. ET tube suctioning after that did not show any evidence of tube feeding. Exam Vital signs and Labs for Last 24 Hours: Temp Pulse Resp BP Pulse Ox 97.9 F 84 18 103/62 L 96 06/18/20 11:00 06/18/20 11:00 06/18/20 11:00 06/18/20 11:00 06/18/20 11:00 Laboratory Results - last 24 hr 06/17/20 11:18: POC Glucose 208 H 06/17/20 16:18: POC Glucose 206 H 06/17/20 23:23: POC Glucose 241 H 06/18/20 05:30: WBC 8.2, RBC 3.08 L, Hgb 10.3 L, Hct 30.4 L, MCV 98.7, MCH 33.6 H, MCHC 34.0, RDW 15.8, Plt Count 214, MPV 8.1, Neut % (Auto) 79.2, Lymph % (Auto) 13.1, [place] % (Auto) 6.8, Eos % (Auto) 0.7, Baso % (Auto) 0.3, Neut # (Auto) 6.5, Lymph # (Auto) 1.1, [place] # (Auto) 0.6, Eos # (Auto) 0.1, Baso # (Auto) 0.0 06/18/20 05:30: Sodium 131 L, Potassium 3.4 L, Chloride 100, Carbon Dioxide 18 L, Anion Gap 16.4 H, BUN 47 H, Creatinine 1.50 H, Estimated Creat Clear 69, Estimated GFR 35 L, Est GFR ( Amer) 42 L, Glucose 236 H, Calcium 8.9, Lipase 25 06/18/20 05:34: POC Glucose 237 H 06/18/20 06:00: Specimen Source R radial, O2 % 90, ABG pH 7.39, ABG pCO2 31.6 L, ABG pO2 84.0, ABG HCO3 18.9 L, ABG Total CO2 19.8 L, ABG O2 Saturation 96, ABG Base Excess -6.0 L, Gerry Test acceptable, Vent Rate 18, Tidal Volume 420, PEEP 10 I & O for Last 24 hours: Intake & Output 06/15/20 06/16/20 06/17/20 06/18/20 23:59 23:59 23:59 23:59 Intake Total 220 / 220 3222 / 3345 2088.651 / 2088.651 1662.086 / 1662.086 Output Total 600 / 600 1285 / 1385 4875 / 5025 860 / 860 Balance -380 / -380 1937 / 1960 -2786.349 / -2936.349 802.086 / 802.086 Weight 240 lb 245 lb 6.4 oz 257 lb 8 oz 259 lb 4 oz Microbiology Reports for the Last 24 Hours: Microbiology 06/17/20 08:38 Urine,Catheterized Urine Culture - Preliminary NO GROWTH AFTER 24 HOURS 06/17/20 11:30 Bronchial Washings Gram Stain - Final 06/17/20 11:30 Bronchial Lavage - Final Not Reportable 06/17/20 11:30 Bronchial Lavage - Final Not Reportable - Constitutional moderate distress - *Routine HEENT Exam Head: Present: normocephalic, atraumatic Comments: ET tube in place - *Routine Neck Exam Present: supple, full ROM. Absent: lymphadenopathy, thyromegaly - *Routine Respiratory Exam Present: patient mechanically ventilated, rhonchi, distant breath sounds, diminished air movement - *Routine Cardiovascular Exam Present: RRR, Normal S1, Normal S2 - *Routine Abdominal Exam Present: soft, normoactive bowel sounds, obese. Absent: distended, rebound, guarding, firm, rigid - *Routine Extremities Exam Absent: cyanosis, clubbing, edema Assessment and Plan (1) Shortness of breath Current visit: Yes Status: Acute Category: Medical Code(s): R06.02 - Shortness of breath (2) Fatigue Current visit: Yes Status: Acute Qualifiers: Fatigue type: unspecified Qualified Code(s): R53.83 - Other fatigue Category: Medical Code(s): R53.83 - Other fatigue (3) Weakness Current visit: Yes Status: Acute Category: Medical Code(s): R53.1 - Weakness (4) AICD (automatic cardioverter/defibrillator) present Current visit: No Status: Acute Category: Surgical Code(s): Z95.810 - Presence of automatic (implantable) cardiac defibrillator (5) Pneumonia Current visit: No Status: Acute Qualifiers: Pneumonia type: due to unspecified organism Laterality: right Lung location: lower lobe of lung Qualified Code(s): J18.9 - Pneumonia, unspecified organism Category: Medical Code(s): J18.9 - Pneumonia, unspecified organism (6) Breast cancer Current visit: No Status: Chronic Qualifiers: Breast location: upper outer mone
[2020-06-18 11:47] LABS: Triglycerides 343 mg/dl (30-150)
--- NOTE | 2020-06-18 11:55 | PC.NURSE ---
levophen decreased from 6 to 5mcg/kg/min
[2020-06-18 12:22] LABS: POC Glucose,Bedside 259 (70-110)
--- NOTE | 2020-06-18 12:50 | PC.NURSE ---
Addendum entered by Michelle Rocha RN 06/18/20 13:53: levo increased to 6 mcg/kg/min Original Note: levo increased to 76 mcg/kg/min
--- NOTE | 2020-06-18 13:05 | PC.NURSE ---
levo increased to 7 mcg/kg/min
--- NOTE | 2020-06-18 13:30 | PC.NURSE ---
propofol turnewd down to 45 mcg/kg/min
--- NOTE | 2020-06-18 13:45 | PC.NURSE ---
levophed decreased from 6 to 5mcg/kg/min
--- NOTE | 2020-06-18 14:42 | PC.NURSE ---
Addendum entered by Michelle Rocha RN 06/18/20 14:42: 1400- propofol turned down to 43 mcg/kg/min 1430 - propofol turned down to 40 mcg/kg/min Original Note: propofol turned down to 43 mcg/kg/min
--- NOTE | 2020-06-18 15:00 | PC.NURSE ---
propofol decreased to 38 mcg/kg/min
--- NOTE | 2020-06-18 16:26 | PC.NURSE ---
fentanyl added at 1524; started at 2 mls/hr per pharmacy propofol decreased to 35mcg/kg/min when fentanyl started 1535 - pt restless, fentanyl increased to 3 mls/hr and propofol decreased 30 mcg/kg/min 1550 - pt still agitated, fentanyl increased to 4 mls/hr 40mcg/kg/min) 1600 - pt resting peacefully
--- NOTE | 2020-06-18 16:34 | PC.NURSE ---
Pt currently has propofol going at 30 mcg/kg/min into RAC, 40 mcg/kg/min of fentanyl into rt hand, and 7 mcg/kg/min of levophed into rt port. She is currently resting peacefully. I attempted to wean levophed but pts BP and map started declining. Pt had 80mg of IV lasix this am, as of 1630 she has had 1020 mls of clear yellow urine out per [place]. Lungs had some rhonchi and crackles this am, at 1600 lungs were much more clear but diminished. She has been turned q2hrs and oral care provided q2hrs. Pt tolerates well. She has +2 to +4 generalized edema. Scattered bruising to body. Tube feeds were on hold due to patient vomiting when attempting to start them yesterday. Per Dr Pack I will attempt to restart them today. OG tube in place at 22 in the right side of mouth. Placement confirmed with auscultation but unable to withdraw gastric contents from tube. Vent settings documented in intervention. Daughter at bedside and supportive. Will continue to monitor.
[2020-06-18 17:36] LABS: POC Glucose,Bedside 217 (70-110)
--- NOTE | 2020-06-18 19:12 | PC.NURSE ---
report given to jesus
--- NOTE | 2020-06-18 19:29 | HMH.ACPN2 ---
Internal Medicine - PN: Subj *Date: 06/18/20 *Time: 19:33 Interval history: uneventful night sedated on vent Exam Vital signs and Labs for Last 24 Hours: Temp Pulse Resp BP Pulse Ox 97.6 F 86 18 108/54 L 90 L 06/18/20 14:00 06/18/20 19:00 06/18/20 19:00 06/18/20 19:00 06/18/20 19:00 Laboratory Results - last 24 hr 06/17/20 11:30: BAL Total Cell Count 06/17/20 23:23: POC Glucose 241 H 06/18/20 05:30: WBC 8.2, RBC 3.08 L, Hgb 10.3 L, Hct 30.4 L, MCV 98.7, MCH 33.6 H, MCHC 34.0, RDW 15.8, Plt Count 214, MPV 8.1, Neut % (Auto) 79.2, Lymph % (Auto) 13.1, [place] % (Auto) 6.8, Eos % (Auto) 0.7, Baso % (Auto) 0.3, Neut # (Auto) 6.5, Lymph # (Auto) 1.1, [place] # (Auto) 0.6, Eos # (Auto) 0.1, Baso # (Auto) 0.0 06/18/20 05:30: Sodium 131 L, Potassium 3.4 L, Chloride 100, Carbon Dioxide 18 L, Anion Gap 16.4 H, BUN 47 H, Creatinine 1.50 H, Estimated Creat Clear 69, Estimated GFR 35 L, Est GFR ( Amer) 42 L, Glucose 236 H, Calcium 8.9, Lipase 25 06/18/20 05:34: POC Glucose 237 H 06/18/20 05:53: Triglycerides 343 H 06/18/20 06:00: Specimen Source R radial, O2 % 90, ABG pH 7.39, ABG pCO2 31.6 L, ABG pO2 84.0, ABG HCO3 18.9 L, ABG Total CO2 19.8 L, ABG O2 Saturation 96, ABG Base Excess -6.0 L, Gerry Test acceptable, Vent Rate 18, Tidal Volume 420, PEEP 10 06/18/20 12:15: POC Glucose 259 H 06/18/20 17:27: POC Glucose 217 H I & O for Last 24 hours: Intake & Output 06/15/20 06/16/20 06/17/20 06/18/20 23:59 23:59 23:59 23:59 Intake Total 220 / 220 3222 / 3345 2088.651 / 2088.651 2253 / 2253 Output Total 600 / 600 1285 / 1385 4875 / 5025 3025 / 3025 Balance -380 / -380 1937 / 1960 -2786.349 / -2936.349 -772 / -772 Weight 240 lb 245 lb 6.4 oz 257 lb 8 oz 259 lb 4 oz Microbiology Reports for the Last 24 Hours: Microbiology 06/17/20 08:38 Urine,Catheterized Urine Culture - Preliminary NO GROWTH AFTER 24 HOURS - Constitutional somnolent, obtunded - *Routine HEENT Exam Head: Present: normocephalic Eye: Absent: conjunctival icterus - *Routine Neck Exam Present: trachea midline - *Routine Respiratory Exam Present: patient mechanically ventilated - *Routine Cardiovascular Exam Present: RRR - *Routine Abdominal Exam Present: soft, normoactive bowel sounds. Absent: tenderness - *Routine Extremities Exam Present: edema. Absent: cyanosis, clubbing - *Routine Skin Exam Present: warm. Absent: rash - *Routine Neurological Exam Absent: alert, oriented X3 - Routine Psychiatric Exam Present: unable to assess Assessment and Plan (1) Pneumonia Current visit: No Status: Acute Qualifiers: Pneumonia type: due to unspecified organism Laterality: right Lung location: lower lobe of lung Qualified Code(s): J18.9 - Pneumonia, unspecified organism Category: Medical Code(s): J18.9 - Pneumonia, unspecified organism (2) Shortness of breath Current visit: Yes Status: Acute Category: Medical Code(s): R06.02 - Shortness of breath (3) Fatigue Current visit: Yes Status: Acute Qualifiers: Fatigue type: unspecified Qualified Code(s): R53.83 - Other fatigue Category: Medical Code(s): R53.83 - Other fatigue (4) Weakness Current visit: Yes Status: Acute Category: Medical Code(s): R53.1 - Weakness (5) AICD (automatic cardioverter/defibrillator) present Current visit: No Status: Acute Category: Surgical Code(s): Z95.810 - Presence of automatic (implantable) cardiac defibrillator (6) Breast cancer Current visit: No Status: Chronic Qualifiers: Breast location: upper outer quadrant of breast Estrogen receptor status: unspecified Patient sex: female Laterality: left Qualified Code(s): C50.412 - Malignant neoplasm of upper-outer quadrant of left female breast Category: Medical Code(s): C50.919 - Malignant neoplasm of unspecified site of unspecified female breast (7) Chronic pain Current visit: No
--- NOTE | 2020-06-18 19:30 | PC.NURSE ---
Report received from Tiffanie Rocha RN. Pt currently on Propofol gtt @ 25 mcg/kg/min. Fentanyl gtt @ 40 mcg/hr. Levophed gtt @ 6 mcg/min.
--- NOTE | 2020-06-18 23:42 | PC.NURSE ---
Pt remains on Levophed gtt@ 6 mcg/min infusing to (R) chest port. Fentanyl gtt infusing @ 50 mcg/hr in (R) thumb. Propofol gtt infusing @ 25 mcg/kg/min in RAC. IV lines patent. No infiltration or redness noted. VSS at this time. BP 96/61, P 99, O2 94%, R18. Vent settings per RT FiO2 95%, TV 420, R 18, PEEP 10. ETT 21 cm @ lip. No spontaneous respirations noted. OG tube 51 cm at lip. Feedings Pulmocare infusing @ 25 ml/hr. No residual at this time. F/C draining to bedside with clear, yellow urine. Total urine output 315 cc thus far. Partial bed bath given. Oral care provided with suction. Medication administered per dec. Infusions titrated per protocol. Family remains at bedside. Will continue to monitor.
[2020-06-19] VITALS (50 sets, daily range): BP systolic 90–117; BP diastolic 44–86; PULSE 73–103; RESP 18; TEMP 36.7–37.2; O2SAT 90–100; BMI 36.1
[2020-06-19 00:13] LABS: POC Glucose,Bedside 202 (70-110)
[2020-06-19 00:13] LABS: POC Glucose,Bedside 198 (70-110)
--- NOTE | 2020-06-19 02:44 | PC.NURSE ---
Levophed Gtt titation 2010- 7 mcg/min 2030- 8 mcg/min 2300- 6 mcg/min 0100- 5 mcg/min 0215- 6 mcg/min Propofol Titration 2010- 23 mcg/kg/min 2300- 25 mcg/kg/min 0100- 30 mcg/kg/min Fentanyl Titration 2300- 50 mcg/hr 0111- 55 mcg/hr 0215- 50 mcg/hr
--- NOTE | 2020-06-19 04:08 | PC.NURSE ---
Pt repositioned and became agitated. Pt began to cough. Pt was suctioned oral and per ETT. Pt had difficulty recovering. RT notified. Pt was assessed and Induced sputum with saline. Moderate amount of thick, cream color mucus with blood tinged was noted. FiO2 was increased to 100% per RT temporarily for recovery of pt. Vent setting are as follows: Assist control, FiO2 100, TV 420, PEEP 10, R 18. Pt sat is currently 91%. Propofol gtt titrated to 35 mcg/kg/min. Versed infusing @ 50 mcg/hr. Levophed titrated down to 5 mcg/min. Pulmocare was increased this AM from 35 ml/hr to goal rate of 45 ml/hr after no residual. Will recheck again. F/C draining to bedside with clear yellow urine. Urine output 865 cc thus far. Family remains at bedside. Will continue to monitor.
--- NOTE | 2020-06-19 06:00 | XR_ITS ---
PROCEDURE: XR CHEST PORTABLE CLINICAL HISTORY: ETT placement Respiratory failure COMPARISON: CT CT ANGIO CHEST from 06/10/2020 CR XR CHEST PORTABLE from 06/16/2020 CR XR CHEST PORTABLE from 06/17/2020 CR XR CHEST PORTABLE from 06/17/2020 FINDINGS: 5:56 a.m.. Endotracheal tube tip is well above the gavin at the T3-T4 level. Right subclavian MediPort catheter is present with the tip in the SVC. Bipolar pacemaker noted. A nasogastric tube present with the tip not visible on the film but below the GE junction Cardiomegaly with diffuse bilateral alveolar opacification with some sparing of the right upper lobe with left-sided effusion overall not significantly changed. Degenerative changes are present in the shoulders. IMPRESSION: Overall no change in the tubes and lines in the diffuse bilateral airspace disease with left-sided effusion Dictated by: Gerry Craig MD 06/19/2020 06:36 Gerry Craig MD in [place] 06/19/2020 06:36
--- NOTE | 2020-06-19 06:00 | XR_ITS ---
PROCEDURE: XR ABDOMEN MIN 2V CLINICAL INDICATION: OG placement COMPARISON: CR XR CHEST PORTABLE from 06/19/2020 FINDINGS: 6:24 a.m.. The tip of the orogastric tube is in the region of the cardia of the stomach with the distal side hole at the GE junction region. The tube could be post end another 4 or 5 cm to ensure that the entire catheters in the stomach. IMPRESSION: Orogastric tube tip in the region of the cardia of the stomach. Please see above Dictated by: Gerry Craig MD 06/19/2020 06:44 Gerry Craig MD in [place] 06/19/2020 06:44
[2020-06-19 06:34] LABS: Basophils % 0.4 % (0.1-2.0); Eosinophils # 0.1 K/mm3 (0.0-0.4); Eosinophils % 0.6 % (0.1-12.0); Hematocrit 30.1 % (37.0-47.0); Hemoglobin 10.1 g/dL (12.2-16.2); Lymphocytes # 1.2 K/mm3 (0.7-4.5); Mean Corpuscular HGB Conc 33.4 g/dL (31.8-35.4); Mean Corpuscular Hemoglobin 33.6 pg (27.0-31.2); Mean Corpuscular Volume 100.5 fl (81-99); Mean Platelet Volume 7.9 fl (7.4-10.4); Monocytes # 0.6 K/mm3 (0.1-1.0); Monocytes % 7.2 % (1.7-9.3); Neutrophils # 5.9 K/mm3 (1.8-7.8); Neutrophils % 76.8 % (37.0-80.0); Platelet Count 224 K/mm3 (142-424); Red Cell Distribution Width 15.6 % (11.5-17.5); White Blood Count 7.6 K/mm3 (4.8-10.8)
[2020-06-19 06:35] LABS: POC Glucose,Bedside 258 (70-110)
--- NOTE | 2020-06-19 06:39 | PC.NURSE ---
Upon assessment of pt, tube feeding noted to be on pt neck. O2 sats declined. Feeding turned off and pt suctioned and mouth and OG tube assessed. OG tube @ 51 cm and ETT @ 21 cm @ lip. Placement remain the same. RT consulted. Pt removed off vent and bagged while resetting vent. Pt was administered saline with suction per RT. Abd XR ordered. drone software development engineer aware. BP 103/64, P 102, O2 sat 95%. Last temp 98.1 A. Awaiting Labs and xrays.
[2020-06-19 07:03] LABS: Chloride 98 mmol/L (98-107); Sodium 132 mmol/L (136-145)
[2020-06-19 07:07] LABS: Anion Gap 14.8 mEq/L (5-15); Blood Urea Nitrogen 53 mg/dl (7-17); Calcium 8.8 mg/dl (8.4-10.2); Carbon Dioxide 22 mmol/L (22.0-30.0); Creatinine Clearance Estimated 69 mL/min (50-200); Estimated Glomerular Filt Rate 35 ml/min (>60); GFR (African American) 42 ML/MIN (>60); Glucose 249 mg/dl (74-100)
[2020-06-19 07:20] LABS: Potassium 2.8 mmoL/L (3.5-5.1)
[2020-06-19 12:23] LABS: POC Glucose,Bedside 250 (70-110)
--- NOTE | 2020-06-19 12:25 | PC.NURSE ---
1027 - Pt had a 20 sec run of V-tach. aware of this. Will continue w/ orders to replace pt's potassium IV. 1150 - Dr. Pack at bedside. made aware of episode this AM in which assistant shift supervisor nurse found tube feed residue on pt's neck. okay w/ OG being inserted 4 cm more per recommendations of abdominal x-ray. OG advanced to 55 cm @ lip. states to restart tube feed @ 25 mls/hr and advance as tolerated.
--- NOTE | 2020-06-19 12:40 | HMH.ACPN2 ---
Internal Medicine - PN: Subj *Date: 06/19/20 *Time: 12:40 Interval history: pulmocare restarted yesterday target infusion is 45 question of regurg during the night suctioned/bagged og advanced 4 cm will try re-start at lower rate short run of vtach hypokalemia noted at 2.8 20 meq runs x 2 ordered Exam Vital signs and Labs for Last 24 Hours: Temp Pulse Resp BP Pulse Ox 98.7 F 84 18 94/62 L 97 06/19/20 12:00 06/19/20 12:00 06/19/20 12:00 06/19/20 12:00 06/19/20 12:00 Laboratory Results - last 24 hr 06/17/20 11:30: BAL Total Cell Count 06/18/20 17:27: POC Glucose 217 H 06/18/20 20:49: POC Glucose 198 H 06/19/20 00:02: POC Glucose 202 H 06/19/20 05:50: WBC 7.6, RBC 3.00 L, Hgb 10.1 L, Hct 30.1 L, MCV 100.5 H, MCH 33.6 H, MCHC 33.4, RDW 15.6, Plt Count 224, MPV 7.9, Neut % (Auto) 76.8, Lymph % (Auto) 15.0, [place] % (Auto) 7.2, Eos % (Auto) 0.6, Baso % (Auto) 0.4, Neut # (Auto) 5.9, Lymph # (Auto) 1.2, [place] # (Auto) 0.6, Eos # (Auto) 0.1, Baso # (Auto) 0.0 06/19/20 05:50: Sodium 132 L, Potassium 2.8 L*, Chloride 98, Carbon Dioxide 22 D, Anion Gap 14.8, BUN 53 H, Creatinine 1.50 H, Estimated Creat Clear 69, Estimated GFR 35 L, Est GFR ( Amer) 42 L, Glucose 249 H, Calcium 8.8 06/19/20 06:17: POC Glucose 258 H 06/19/20 12:11: POC Glucose 250 H I & O for Last 24 hours: Intake & Output 06/16/20 06/17/20 06/18/20 06/19/20 23:59 23:59 23:59 23:59 Intake Total 3222 / 3345 2088.651 / 2088.651 2788 / 2835 1439.389 / 1439.389 Output Total 1285 / 1385 4875 / 5025 3340 / 3415 1030 / 1030 Balance 1937 / 1960 -2786.349 / -2936.349 -552 / -580 409.389 / 409.389 Weight 245 lb 6.4 oz 257 lb 8 oz 259 lb 4 oz 258 lb 8 oz Microbiology Reports for the Last 24 Hours: Microbiology 06/17/20 11:00 Blood Blood Culture - Preliminary NO GROWTH AFTER 48 HOURS 06/17/20 09:10 Blood Blood Culture - Preliminary NO GROWTH AFTER 48 HOURS 06/17/20 08:38 Urine,Catheterized Urine Culture - Final NO GROWTH AFTER 48 HOURS - Constitutional no acute distress, somnolent - *Routine HEENT Exam Head: Present: normocephalic Eye: Absent: conjunctival icterus, periorbital ecchymosis - *Routine Neck Exam Present: trachea midline - *Routine Respiratory Exam Present: patient mechanically ventilated - *Routine Cardiovascular Exam Present: RRR - *Routine Abdominal Exam Present: soft. Absent: normoactive bowel sounds, tenderness, mass - *Routine Extremities Exam Present: edema. Absent: cyanosis, clubbing, extremity cold to touch - *Routine Skin Exam Present: warm. Absent: rash - *Routine Neurological Exam Absent: alert, oriented X3, facial asymmetry, tremors - Routine Psychiatric Exam Present: unable to assess Assessment and Plan (1) Pneumonia Current visit: No Status: Acute Qualifiers: Pneumonia type: due to unspecified organism Laterality: right Lung location: lower lobe of lung Qualified Code(s): J18.9 - Pneumonia, unspecified organism Category: Medical Code(s): J18.9 - Pneumonia, unspecified organism (2) Shortness of breath Current visit: Yes Status: Acute Category: Medical Code(s): R06.02 - Shortness of breath (3) Fatigue Current visit: Yes Status: Acute Qualifiers: Fatigue type: unspecified Qualified Code(s): R53.83 - Other fatigue Category: Medical Code(s): R53.83 - Other fatigue (4) Weakness Current visit: Yes Status: Acute Category: Medical Code(s): R53.1 - Weakness (5) AICD (automatic cardioverter/defibrillator) present Current visit: No Status: Acute Category: Surgical Code(s): Z95.810 - Presence of automatic (implantable) cardiac defibrillator (6) Breast cancer Current visit: No Status: Chronic Qualifiers: Breast location: upper outer quadrant of breast Estrogen receptor status: unspecified Patient sex: female
--- NOTE | 2020-06-19 14:25 | PC.NURSE ---
1400 - Per [place] FIO2 decreased to 90% at this time by RT.
--- NOTE | 2020-06-19 14:34 | HMH.ACPN ---
Internal Medicine - PN: Subj *Date: 06/19/20 *Time: 14:34 Exam Vital signs and Labs for Last 24 Hours: Temp Pulse Resp BP Pulse Ox 98.7 F 73 18 108/61 L 97 06/19/20 12:00 06/19/20 14:07 06/19/20 14:00 06/19/20 14:00 06/19/20 14:07 Laboratory Results - last 24 hr 06/17/20 11:30: BAL Total Cell Count 06/18/20 17:27: POC Glucose 217 H 06/18/20 20:49: POC Glucose 198 H 06/19/20 00:02: POC Glucose 202 H 06/19/20 05:50: WBC 7.6, RBC 3.00 L, Hgb 10.1 L, Hct 30.1 L, MCV 100.5 H, MCH 33.6 H, MCHC 33.4, RDW 15.6, Plt Count 224, MPV 7.9, Neut % (Auto) 76.8, Lymph % (Auto) 15.0, [place] % (Auto) 7.2, Eos % (Auto) 0.6, Baso % (Auto) 0.4, Neut # (Auto) 5.9, Lymph # (Auto) 1.2, [place] # (Auto) 0.6, Eos # (Auto) 0.1, Baso # (Auto) 0.0 06/19/20 05:50: Sodium 132 L, Potassium 2.8 L*, Chloride 98, Carbon Dioxide 22 D, Anion Gap 14.8, BUN 53 H, Creatinine 1.50 H, Estimated Creat Clear 69, Estimated GFR 35 L, Est GFR ( Amer) 42 L, Glucose 249 H, Calcium 8.8 06/19/20 06:17: POC Glucose 258 H 06/19/20 12:11: POC Glucose 250 H I & O for Last 24 hours: Intake & Output 06/16/20 06/17/20 06/18/20 06/19/20 23:59 23:59 23:59 23:59 Intake Total 3222 / 3345 2088.651 / 2088.651 2788 / 2835 1539.389 / 1539.389 Output Total 1285 / 1385 4875 / 5025 3340 / 3415 1190 / 1190 Balance 1937 / 1960 -2786.349 / -2936.349 -552 / -580 349.389 / 349.389 Weight 111.312 kg 116.8 kg 117.594 kg 117.254 kg Microbiology Reports for the Last 24 Hours: Microbiology 06/17/20 11:00 Blood Blood Culture - Preliminary NO GROWTH AFTER 48 HOURS 06/17/20 09:10 Blood Blood Culture - Preliminary NO GROWTH AFTER 48 HOURS 06/17/20 08:38 Urine,Catheterized Urine Culture - Final NO GROWTH AFTER 48 HOURS Assessment and Plan (1) Pneumonia Current visit: No Status: Acute Qualifiers: Pneumonia type: due to unspecified organism Laterality: right Lung location: lower lobe of lung Qualified Code(s): J18.9 - Pneumonia, unspecified organism Category: Medical Code(s): J18.9 - Pneumonia, unspecified organism (2) Shortness of breath Current visit: Yes Status: Acute Category: Medical Code(s): R06.02 - Shortness of breath (3) Fatigue Current visit: Yes Status: Acute Qualifiers: Fatigue type: unspecified Qualified Code(s): R53.83 - Other fatigue Category: Medical Code(s): R53.83 - Other fatigue (4) Weakness Current visit: Yes Status: Acute Category: Medical Code(s): R53.1 - Weakness (5) AICD (automatic cardioverter/defibrillator) present Current visit: No Status: Acute Category: Surgical Code(s): Z95.810 - Presence of automatic (implantable) cardiac defibrillator (6) Breast cancer Current visit: No Status: Chronic Qualifiers: Breast location: upper outer quadrant of breast Estrogen receptor status: unspecified Patient sex: female Laterality: left Qualified Code(s): C50.412 - Malignant neoplasm of upper-outer quadrant of left female breast Category: Medical Code(s): C50.919 - Malignant neoplasm of unspecified site of unspecified female breast (7) Chronic pain Current visit: No Status: Chronic Qualifiers: Chronic pain type: other chronic postprocedural pain Qualified Code(s): G89.28 - Other chronic postprocedural pain Category: Medical Code(s): G89.29 - Other chronic pain (8) Diabetes Current visit: No Status: Chronic Qualifiers: Diabetes mellitus type: type 2 Category: Medical Code(s): E11.9 - Type 2 diabetes mellitus without complications (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
--- NOTE | 2020-06-19 16:10 | PC.NURSE ---
Addendum entered by Jo Ann Cuba RN 06/19/20 17:27: Propofol tubing changed @ 0700 by evening or night nurse supervisor staff. Tube feeding lines changed @ 1700 today per protocol. Original Note: Pt remains on [facility] vent w/ vent settings currently: Assist control, FIO2 - 90%, TV - 420, Peep - 10, Resp rate - 18. Tolerating settings w/ no s/s of resp distress. 7.5 ETT remains intact, 22 @ lip, tube was moved this shift @ 1600 to midline from (R) side. Oral care and suctioning performed q2h. Secretions have been thick and clear this afternoon. Pupils PERRLA. Pt has opened her eyes once and acknowledged that her daughter was at bedside as well as a visitor from [place]. Gag reflex is present. Is not able to follow commands. Pt has been turned and repositioned q2h. Pedraza cath to drain at bedside w/ clear yellow urine noted. No BM this shift. 14 Fr OG remains in place, 55 cm @ lip. Tube feedings currently @ 25 mls/hr, tolerating well. Residual checks performed q6h as ordered. No skin break down noted. Pt does have scattered bruising to extremities. Daughter and pt's preacher at bedside at this time. Bed safety in place. Call filipe w/in reach. Will continue to monitor.
--- NOTE | 2020-06-19 17:18 | PC.NURSE ---
Addendum entered by Jo Ann Cuba RN 06/19/20 18:04: *Correction - Fentanyl increased to 55 mcg/hr at 1800 Addendum entered by Jo Ann Cuba RN 06/19/20 18:02: 1800 - Fentanyl increased to 60 mcg/hr. Original Note: 1030 - Propofol decreased to 30 mcg/kg/min 1130 - Propofol decreased to 25 mcg/kg/min 1230 - Propofol decreased to 20 mcg/kg/min 1330 - Propofol increased to 25 mcg/kg/min 1530 - Propfol increased to 30 mcg/kg/min 1700 - Fentanyl increased to 50 mcg/hr Levophed remains at 5 mcg/min Goal of titrating RASS of -1 to 1.
[2020-06-19 18:18] LABS: POC Glucose,Bedside 199 (70-110)
--- NOTE | 2020-06-19 20:35 | PC.NURSE ---
Pharmacy [facility] consulted for Drawing BMP after potassium infusion. Wait 2 hours to draw lab.
[2020-06-19 22:52] LABS: Anion Gap 12.5 mEq/L (5-15); Blood Urea Nitrogen 54 mg/dl (7-17); Calcium 8.9 mg/dl (8.4-10.2); Carbon Dioxide 23 mmol/L (22.0-30.0); Chloride 102 mmol/L (98-107); Creatinine Clearance Estimated 74 mL/min (50-200); Estimated Glomerular Filt Rate 38 ml/min (>60); GFR (African American) 46 ML/MIN (>60); Glucose 234 mg/dl (74-100); Potassium 3.5 mmoL/L (3.5-5.1); Sodium 134 mmol/L (136-145)
--- NOTE | 2020-06-19 23:08 | PC.NURSE ---
Pt restlessness has improved since beginning of shift and is resting comfortably at this time. Pt remains on Levophed gtt @ 7 mcg/min. Propofol gtt infusing @ 33 mcg/kg/min. Fentanyl gtt @ 60 mcg/min. Vent settings are as follows: AC, FiO2 90%, TV 420, R 18, PEEP 10, O2 sat 93%. ETT 21 cm @ lip. OG tube 54 cm @ lip. Pulmocare infusing @ 30 ml/hr. 0 Residual. No emesis noted. F/C draining to bedside with 280 cc total urine output thus far. BMP obtained. Potassium 3.5. Will administer Lasix 80 mg IV per MD. VSS at this time. Will continue to monitor.
[2020-06-20] VITALS (54 sets, daily range): BP systolic 79–122; BP diastolic 45–71; PULSE 70–114; RESP 18; TEMP 36.9–37.3; O2SAT 88–100; BMI 34.9
[2020-06-20 02:03] LABS: POC Glucose,Bedside 256 (70-110)
[2020-06-20 04:50] LABS: Basophils % 0.4 % (0.1-2.0); Eosinophils # 0.1 K/mm3 (0.0-0.4); Eosinophils % 1.6 % (0.1-12.0); Hematocrit 30.9 % (37.0-47.0); Hemoglobin 10.3 g/dL (12.2-16.2); Lymphocytes # 0.8 K/mm3 (0.7-4.5); Lymphocytes % 9.1 % (10-50); Mean Corpuscular HGB Conc 33.4 g/dL (31.8-35.4); Mean Corpuscular Hemoglobin 33.3 pg (27.0-31.2); Mean Corpuscular Volume 99.7 fl (81-99); Monocytes # 0.6 K/mm3 (0.1-1.0); Monocytes % 6.5 % (1.7-9.3); Neutrophils % 82.4 % (37.0-80.0); Platelet Count 175 K/mm3 (142-424); Red Cell Distribution Width 15.8 % (11.5-17.5); White Blood Count 8.5 K/mm3 (4.8-10.8)
[2020-06-20 05:03] LABS: Anion Gap 13.4 mEq/L (5-15); Blood Urea Nitrogen 55 mg/dl (7-17); Carbon Dioxide 25 mmol/L (22.0-30.0); Chloride 100 mmol/L (98-107); Creatinine Clearance Estimated 74 mL/min (50-200); Estimated Glomerular Filt Rate 38 ml/min (>60); GFR (African American) 46 ML/MIN (>60); Glucose 252 mg/dl (74-100); Potassium 3.4 mmoL/L (3.5-5.1); Sodium 135 mmol/L (136-145)
--- NOTE | 2020-06-20 06:00 | XR_ITS ---
PROCEDURE: XR CHEST PORTABLE CLINICAL HISTORY: ETT placement COMPARISON: CT CT ANGIO CHEST from 06/10/2020 CR XR CHEST PORTABLE from 06/17/2020 CR XR CHEST PORTABLE from 06/17/2020 CR XR CHEST PORTABLE from 06/19/2020 FINDINGS: Prominent bilateral basilar ill-defined pneumonic infiltrates are again seen the there has been some slight increased aeration of both basilar infiltrates since the previous study. Minimal ill-defined infiltrate is seen in the right upper lobe, there is relative sparing of the left upper lobe and left apex. The cardiac pacemaker with dual chamber electrodes is again noted. The endotracheal tube is now position at the T2 level. The right MediPort catheter is again seen with the tip in the upper portion of the SVC. IMPRESSION: Persistent diffuse bilateral perihilar and lower lobe pneumonic infiltrates with slight interval improvement from yesterday's study Dictated by: Dr. Vidal Barone MD 06/20/2020 08:52 Dr. Vidal Barone MD in [facility] 06/20/2020 08:52
--- NOTE | 2020-06-20 06:57 | PC.NURSE ---
Addendum entered by Maria Fernanda Krause RN 06/20/20 07:51: Fentanyl 60 mcg/min Original Note: Pt has been restless this AM. O2 sats are currently 89%. Pt has been repositioned, Bathed, oral care provided and suctioned. F/C draining to bedside with clear yellow urine. Total Urine output 2130 cc tis shift. Edema has improved. Vent settings: AC, FiO2 100%, TV 420, R 18, PEEP 10. Pt remains on Levophed gtt. Currently @ 5 mcg/min. Propofol gtt infusing @ 30 mcg/kg/min. Fentanyl infusing at 60 mcg/min. Gtts titrated per protocol. Levophed 0000 - 6 mcg/min, 0200 - 5 mcg/min, 0400 - 4 mcg/min, 0430 - 5 mcg/min Propofol 2000 35 mcg/kg/min 2014 33 mcg/kg/min 0120 30 mcg/kg/min 0340 35 mcg/kg/min 0728 30 mcg/kg/min Fentanyl 2000 60 mcg/hr
--- NOTE | 2020-06-20 11:25 | PC.NURSE ---
1045 - ETT melendez and position changed at this time. ETT remains at 22 @ lip, now on left side. OG intact, 55 @ lip. Oral care performed. Pt has been suctioned using yaunker as well as in line suction. Secretions noted to be clear and thin. Suction tubing and canisters changed.
--- NOTE | 2020-06-20 13:17 | HMH.ACPN2 ---
Internal Medicine - PN: Subj *Date: 06/20/20 *Time: 13:17 Interval history: unable to wean fi02 prone to nocturnal desats cxr revd slight improvement in right sided infiltrate og advanced to 55cm tf@35 w/o overt problems restless during the night daughter at bedside discussed with rt Exam Vital signs and Labs for Last 24 Hours: Temp Pulse Resp BP Pulse Ox 98.8 F 100 H 18 122/65 94 L 06/20/20 12:00 06/20/20 12:30 06/20/20 12:30 06/20/20 12:30 06/20/20 12:30 Laboratory Results - last 24 hr 06/19/20 17:40: POC Glucose 199 H 06/19/20 22:30: Sodium 134 L, Potassium 3.5 D, Chloride 102, Carbon Dioxide 23, Anion Gap 12.5, BUN 54 H, Creatinine 1.40 H, Estimated Creat Clear 74, Estimated GFR 38 L, Est GFR ( Amer) 46 L, Glucose 234 H, Calcium 8.9 06/19/20 23:56: POC Glucose 256 H 06/20/20 04:15: WBC 8.5, RBC 3.10 L, Hgb 10.3 L, Hct 30.9 L, MCV 99.7 H, MCH 33.3 H, MCHC 33.4, RDW 15.8, Plt Count 175, MPV 8.0, Neut % (Auto) 82.4 H, Lymph % (Auto) 9.1 L, [place] % (Auto) 6.5, Eos % (Auto) 1.6, Baso % (Auto) 0.4, Neut # (Auto) 7.0, Lymph # (Auto) 0.8, [place] # (Auto) 0.6, Eos # (Auto) 0.1, Baso # (Auto) 0.0 06/20/20 04:15: Sodium 135 L, Potassium 3.4 L, Chloride 100, Carbon Dioxide 25, Anion Gap 13.4, BUN 55 H, Creatinine 1.40 H, Estimated Creat Clear 74, Estimated GFR 38 L, Est GFR ( Amer) 46 L, Glucose 252 H, Calcium 9.0 I & O for Last 24 hours: Intake & Output 09/03/20 09/04/20 09/05/20 09/06/20 23:59 23:59 23:59 23:59 Intake Total 8.651 / 2088.651 2788 / 2835 2822.389 / 2907.389 1693 / 1693 Output Total 4875 / 5025 3340 / 3415 1645 / 1820 2230 / 2230 Balance -2786.349 / -2936.349 -552 / -580 1177.389 / 1087.389 -537 / -537 Weight 257 lb 8 oz 259 lb 4 oz 258 lb 8 oz 249 lb 8 oz Microbiology Reports for the Last 24 Hours: Microbiology 06/17/20 11:00 Blood Blood Culture - Preliminary NO GROWTH AFTER 48 HOURS 06/17/20 09:10 Blood Blood Culture - Preliminary NO GROWTH AFTER 48 HOURS - Constitutional no acute distress, somnolent - *Routine HEENT Exam Head: Present: normocephalic - *Routine Neck Exam Present: supple, trachea midline. Absent: lymphadenopathy, tracheal deviation - *Routine Respiratory Exam Present: patient mechanically ventilated, crackles - *Routine Cardiovascular Exam Present: RRR - *Routine Abdominal Exam Present: soft, normoactive bowel sounds. Absent: tenderness - *Routine Extremities Exam Present: edema, normal capillary refill. Absent: cyanosis, clubbing, extremity cold to touch Comments: edema most notable at lue, secondary to surgery/lymphatics - *Routine Skin Exam Present: warm. Absent: jaundice, rash - *Routine Neurological Exam Absent: alert, oriented X3 - Routine Psychiatric Exam Present: unable to assess Assessment and Plan (1) Pneumonia Current visit: No Status: Acute Qualifiers: Pneumonia type: due to unspecified organism Laterality: right Lung location: lower lobe of lung Qualified Code(s): J18.9 - Pneumonia, unspecified organism Category: Medical Code(s): J18.9 - Pneumonia, unspecified organism (2) Shortness of breath Current visit: Yes Status: Acute Category: Medical Code(s): R06.02 - Shortness of breath (3) Fatigue Current visit: Yes Status: Acute Qualifiers: Fatigue type: unspecified Qualified Code(s): R53.83 - Other fatigue Category: Medical Code(s): R53.83 - Other fatigue (4) Weakness Current visit: Yes Status: Acute Category: Medical Code(s): R53.1 - Weakness (5) AICD (automatic cardioverter/defibrillator) present Current visit: No Status: Acute Category: Surgical Code(s): Z95.810 - Presence of automatic (implantable) cardiac defibrillator (6) Breast cancer Current visit: No Status: Chronic Qualifiers: Breast location: upper outer quadrant of breast Estrogen receptor status: u
--- NOTE | 2020-06-20 14:27 | PC.NURSE ---
1410 - Spoke w/ Dr. Kimball via telephone. Updated on pt's current status. States he will see pt's and family tomorrow afternoon. Continue current course w/ no new orders received.
--- NOTE | 2020-06-20 14:29 | PC.NURSE ---
Addendum entered by Jo Ann Cuba RN 06/20/20 15:06: 1500 - Levo increased to 20 mcg/min Original Note: Levophed gtt: 1330 - Increased to 8 mcg/min 1335 - Increased to 10 mcg/min 1340 - Increased to 12 mcg/min 1345 - Increased to 15 mcg/min
--- NOTE | 2020-06-20 17:08 | PC.NURSE ---
Pt is currently resting. Remains on vent w/ settings as follows: Assist Control > FIO2 - 80%, PEEP - 10, TV - 420, Resp rate - 18. Tolerating settings w/ SPO2 in mid 90's. 7.5 ETT remains 22 @ lip. Oral care and suctioning provided Q2HP. OG intact, 55 cm @ lip. Tube feeds continue @ current rate of 40 mls/hr, pt is tolerating well. Dulcolax suppository given this AM, no results this shift. Pedraza to drain at bedside w/ clear yellow urine. Catheter care provided by staff this shift. Pt has been turned and repositioned Q2H. Daughter remains at bedside. No needs at this time.
[2020-06-21] VITALS (18 sets, daily range): BP systolic 85–112; BP diastolic 51–63; PULSE 80–110; RESP 18–33; TEMP 36.5–37.5; O2SAT 90–94; BMI 35.2
--- NOTE | 2020-06-21 01:40 | PC.NURSE ---
IV to R wrist infiltrated; patient now has 2 IVs with fentanyl, propofol, and levophed running continuously. Patient has cefepime ordered to also give; pharmacy called to ask if any combinations of medication can run with only 2 IVs. Pharmacy stated fentanyl and cefepime can run together, and propofol and levophed can run together. Patient difficult stick and access cannot be obtained at this time.
[2020-06-21 05:55] LABS: Basophils % 0.2 % (0.1-2.0); Eosinophils # 0.1 K/mm3 (0.0-0.4); Eosinophils % 0.5 % (0.1-12.0); Hematocrit 30.8 % (37.0-47.0); Hemoglobin 9.8 g/dL (12.2-16.2); Lymphocytes # 0.6 K/mm3 (0.7-4.5); Lymphocytes % 6.3 % (10-50); Mean Corpuscular HGB Conc 31.8 g/dL (31.8-35.4); Mean Corpuscular Hemoglobin 32.4 pg (27.0-31.2); Mean Corpuscular Volume 101.7 fl (81-99); Monocytes # 0.4 K/mm3 (0.1-1.0); Monocytes % 4.3 % (1.7-9.3); Neutrophils % 88.7 % (37.0-80.0); Platelet Count 216 K/mm3 (142-424); Red Blood Count 3.03 M/mm3 (4.20-5.40); Red Cell Distribution Width 15.7 % (11.5-17.5); White Blood Count 10.1 K/mm3 (4.8-10.8)
[2020-06-21 06:00] LABS: ABG Base Excess -3.9 mmol/L (-2.4-2.3); ABG HCO3 22.5 mmhg (22.0-26.0); ABG Oxygen Saturation 80 % (90-100); ABG PCO2 47.2 mmhg (35.0-45.0)
--- NOTE | 2020-06-21 06:00 | XR_ITS ---
PROCEDURE: XR CHEST PORTABLE CLINICAL HISTORY: vent patient with pneumonia COMPARISON: CT CT ANGIO CHEST from 06/10/2020 CR XR CHEST PORTABLE from 06/17/2020 CR XR CHEST PORTABLE from 06/19/2020 CR XR CHEST PORTABLE from 06/20/2020 FINDINGS: There is diffuse bilateral alveolar opacification which appears worse compared to the previous exam. Endotracheal tube tip is at the T2 level approximately 7 cm above the gavin and could be advanced 2 cm. Nasogastric tube tip is in the region of the cardia of the stomach. Right subclavian MediPort catheter tip in the region the SVC. Bipolar pacemaker is present from left subclavian approach unchanged. Bilateral pleural effusions are noted. Severe osteoarthritic changes present in the shoulders. IMPRESSION: Diffuse bilateral alveolar opacification slightly worse with tubes and lines present. The T2 tube tip is slightly high. Anila in the unit was notified of these findings by telephone 06/21/2020 at 7:55 a.m. Dictated by: Gerry Craig MD 06/21/2020 07:58 Gerry Craig MD in [facility] 06/21/2020 07:58
[2020-06-21 06:03] LABS: Allen's Test Patient Unable; Oxygen 100% %; PEEP 10; Source Right Radial; Tidal Volume 420; Vent Rate 18
[2020-06-21 06:04] LABS: ABG PO2 47.9 mmhg (80-100)
[2020-06-21 06:07] LABS: Anion Gap 14.3 mEq/L (5-15); Blood Urea Nitrogen 60 mg/dl (7-17); Carbon Dioxide 24 mmol/L (22.0-30.0); Chloride 99 mmol/L (98-107); Creatinine Clearance Estimated 59 mL/min (50-200); Estimated Glomerular Filt Rate 30 ml/min (>60); GFR (African American) 36 ML/MIN (>60); Glucose 319 mg/dl (74-100); Potassium 3.3 mmoL/L (3.5-5.1); Sodium 134 mmol/L (136-145)
[2020-06-21 06:42] LABS: MANUAL DIFFERENTIAL MANUAL DIFFERENTIAL (MANUAL DIFF)
[2020-06-21 07:05] LABS: Eosinophils % 1 % (0-3); Lymphocytes % 7 % (10-50); Monocytes % 2 % (2-9); Neutrophils % 89 % (42-76); Total Cells Counted 100
[2020-06-21 07:07] LABS: Platelet Estimate Normal; RBC Morphology Normal
[2020-06-21 07:08] LABS: Macrocytosis 1+
--- NOTE | 2020-06-21 07:30 | PC.NURSE ---
Pt has been restless at times this shift. Vent settings AC, FiO2 100%, TV 420, R 18, PEEP 10. Levophed gtt infusing @ 16 mcg/min, Propofol infusing @ 35 mcg/kg/min, Fentanyl infusing @ 50 mcg/hr. F/C draining to bedside with dark, yellow urine. Urine output has decreased this shift. Family has remained at bedside. Propofol titrated to 35 mcg/kg/min @ 2240 Fentanyl titrated to 50 mcg/hr @ 2315 Levophed decreased to 12 mcg/min @ 2235, increased to 14 @ 0326, increased to 16 mcg/min @ 0630
--- NOTE | 2020-06-21 08:15 | PC.NURSE ---
received call from Dr. Craig stating that ET tube is at the T2 level and that it needs to be advanced a couple of centimeters. ET tube currently @ 20cm @ the lip. Called RT. She advanced ET tube to 23cm @ the lip.
--- NOTE | 2020-06-21 08:18 | PC.NURSE ---
SBP 84. Increased Levo to 18mcg/min (33.8mL/hr).
--- NOTE | 2020-06-21 08:31 | PC.NURSE ---
SBP remains @ 85. Levo increased to 20mcg/min (37.5mL/hr)
[2020-06-21 10:17] LABS: POC Glucose,Bedside 243 (70-110)
[2020-06-21 10:17] LABS: POC Glucose,Bedside 231 (70-110)
[2020-06-21 10:17] LABS: POC Glucose,Bedside 278 (70-110)
[2020-06-21 10:17] LABS: POC Glucose,Bedside 329 (70-110)
[2020-06-21 10:17] LABS: POC Glucose,Bedside 278 (70-110)
--- NOTE | 2020-06-21 10:31 | PC.NURSE ---
pt becoming agitated and restless. Propofol gtt increased to 35mcg/kg/min (23.3mL/hr)
--- NOTE | 2020-06-21 11:16 | PC.NURSE ---
SBP 85. Levo increased to 25mcg/min (46.9mL/hr)
--- NOTE | 2020-06-21 11:52 | PC.NURSE ---
daughter has requested that pt not be turned secondary to pt looking comfortable.
--- NOTE | 2020-06-21 12:19 | PC.NURSE ---
rounded with Dr. Pack and Dr. Kimball. Daughter has made decision to withdraw care and to make pt comfortable. Propofol gtt and tubefeeds turned OFF @ 1215. Received verbal order from Dr. Kimball to titrate Fentanyl gtt to comfort. Fentany gtt increased to 75mcg/hr r/t RR 35 and pt becoming restless
--- NOTE | 2020-06-21 12:25 | PC.NURSE ---
Fentanyl gtt increased to 100mcg/hr secondary to RR 35, agitation, restlessness
--- NOTE | 2020-06-21 12:30 | HMH.ACPN2 ---
Internal Medicine - PN: Subj *Date: 06/21/20 *Time: 12:30 Interval history: restless night labile bp unable to wean fi02 daughter has been with her decision being formulated to withdraw care with attention to comfort measures levo/prop/fentanyl on board aicd discussed with pulmonary service he agrees that we are seeing failure of progression despite aggressive measures suspect that neoplastic burden within the chest is a significant factor, along with co-morbid cardiac issues Exam Vital signs and Labs for Last 24 Hours: Temp Pulse Resp BP Pulse Ox 97.7 F 83 22 92/52 L 91 L 06/21/20 12:00 06/21/20 12:00 06/21/20 12:00 06/21/20 12:00 06/21/20 12:00 Laboratory Results - last 24 hr 06/20/20 05:52: POC Glucose 278 H 06/20/20 12:16: POC Glucose 231 H 06/20/20 17:58: POC Glucose 243 H 06/21/20 00:15: POC Glucose 278 H 06/21/20 05:18: WBC 10.1, RBC 3.03 L, Hgb 9.8 L, Hct 30.8 L, MCV 101.7 H, MCH 32.4 H, MCHC 31.8, RDW 15.7, Plt Count 216, MPV 8.0, Neut % (Auto) 88.7 H, Lymph % (Auto) 6.3 L, [place] % (Auto) 4.3, Eos % (Auto) 0.5, Baso % (Auto) 0.2, Neut # (Auto) 9.0 H, Lymph # (Auto) 0.6 L, [place] # (Auto) 0.4, Eos # (Auto) 0.1, Baso # (Auto) 0.0, Total Counted 100, Neutrophils % (Manual) 89 H, Lymphocytes % (Manual) 7 L, Monocytes % (Manual) 2, Eosinophils % (Manual) 1, Basophils % (Manual) 1.0, Platelet Estimate Normal, RBC Morphology Normal, Macrocytosis 1+ 06/21/20 05:18: Sodium 134 L, Potassium 3.3 L, Chloride 99, Carbon Dioxide 24, Anion Gap 14.3, BUN 60 H, Creatinine 1.70 H D, Estimated Creat Clear 59, Estimated GFR 30 L, Est GFR ( Amer) 36 L D, Glucose 319 H, Calcium 9.0 06/21/20 05:32: POC Glucose 329 H* 06/21/20 05:50: Specimen Source Right radial, O2 % 100%, ABG pH 7.30 L, ABG pCO2 47.2 H, ABG pO2 47.9 L, ABG HCO3 22.5, ABG Total CO2 24.0, ABG O2 Saturation 80 L*, ABG Base Excess -3.9 L, Gerry Test Patient unable, Vent Rate 18, Tidal Volume 420, PEEP 10 I & O for Last 24 hours: Intake & Output 06/18/20 06/19/20 06/20/20 06/21/20 23:59 23:59 23:59 23:59 Intake Total 2788 / 2835 2822.389 / 2907.389 3296.487 / 3410.487 1968.789 / 1968.789 Output Total 3340 / 3415 1645 / 1820 2740 / 2780 335 / 335 Balance -552 / -580 1177.389 / 1087.389 556.487 / 477.839 6905.789 / 1633.789 Weight 259 lb 4 oz 258 lb 8 oz 249 lb 8 oz 251 lb 7 oz Microbiology Reports for the Last 24 Hours: Microbiology 06/17/20 11:30 Bronchial Washings Gram Stain - Final 06/17/20 11:30 Bronchial Washings Bronchoalveolar Lavage Culture - Preliminary - Constitutional no acute distress, somnolent - *Routine HEENT Exam Head: Present: normocephalic Eye: Absent: conjunctival icterus, periorbital swelling ENT: Present: mucous membranes moist - *Routine Neck Exam Present: trachea midline. Absent: lymphadenopathy, tracheal deviation - *Routine Respiratory Exam Present: patient mechanically ventilated - *Routine Cardiovascular Exam Present: RRR - *Routine Abdominal Exam Present: soft, normoactive bowel sounds. Absent: tenderness - *Routine Extremities Exam Present: edema, pulses intact. Absent: cyanosis, clubbing, calf tenderness, extremity cold to touch - *Routine Skin Exam Present: warm. Absent: rash - *Routine Neurological Exam Present: altered mental status. Absent: alert, oriented X3, normal speech - Routine Psychiatric Exam Present: unable to assess Assessment and Plan (1) Acute respiratory failure Current visit: Yes Status: Acute Qualifiers: Respiratory failure complication: hypoxia Qualified Code(s): J96.01 - Acute respiratory failure with hypoxia Category: Medical Code(s): J96.00 - Acute respiratory failure, unspecified whether with hypoxia or hypercapnia (2) Pneumonia Current visit: No Status: Acute Qualifiers: Pneumonia type: due to unspecified organism Laterality: right Lung location: lower lobe of lung Qualified Code(s): J18.9 - Pneumonia, unspecified or
--- NOTE | 2020-06-21 12:33 | PC.NURSE ---
pt still not comfortable. Vent bucking noted. Eyes open, is agitated and restless. Dr. Kimball still on floor. Propofol gtt restarted @ 35mcg/kg/min and Fentanyl decreased to 75mcg/hr. HR 105-110 and RR 28-32. Daughter @ BS.
--- NOTE | 2020-06-21 13:11 | PC.NURSE ---
called [facility] [phone] and spoke to Sima. Information provided. Pt ruled out for organ donation secondary to cancer diagnosis. Received instructions to call [facility] CARL[facility] back @ [facility]. Confimation number [phone].
--- NOTE | 2020-06-21 13:13 | PC.NURSE ---
received verbal order from Dr. Kimball to give Versed 1-2mg prn for comfort measures. He will most likely not be present for terminal extubation. He gave his phone number to receive updates ([phone]).
--- NOTE | 2020-06-21 13:26 | PC.NURSE ---
pt's nut threader arrived to the floor
--- NOTE | 2020-06-21 13:53 | HMH.PULMPN ---
Internal Medicine - PN: Subj *Date: 06/21/20 *Time: 13:53 Interval history: Patient ventilator requirements remain stable with no improvement. Patient has worsening shock with increasing pressor requirements, currently receiving 20 mcg of Levophed Exam Vital signs and Labs for Last 24 Hours: Temp Pulse Resp BP Pulse Ox 97.7 F 88 33 H 96/57 L 90 L 06/21/20 12:00 06/21/20 13:00 06/21/20 13:00 06/21/20 13:00 06/21/20 13:00 Laboratory Results - last 24 hr 06/20/20 05:52: POC Glucose 278 H 06/20/20 12:16: POC Glucose 231 H 06/20/20 17:58: POC Glucose 243 H 06/21/20 00:15: POC Glucose 278 H 06/21/20 05:18: WBC 10.1, RBC 3.03 L, Hgb 9.8 L, Hct 30.8 L, MCV 101.7 H, MCH 32.4 H, MCHC 31.8, RDW 15.7, Plt Count 216, MPV 8.0, Neut % (Auto) 88.7 H, Lymph % (Auto) 6.3 L, [place] % (Auto) 4.3, Eos % (Auto) 0.5, Baso % (Auto) 0.2, Neut # (Auto) 9.0 H, Lymph # (Auto) 0.6 L, [place] # (Auto) 0.4, Eos # (Auto) 0.1, Baso # (Auto) 0.0, Total Counted 100, Neutrophils % (Manual) 89 H, Lymphocytes % (Manual) 7 L, Monocytes % (Manual) 2, Eosinophils % (Manual) 1, Basophils % (Manual) 1.0, Platelet Estimate Normal, RBC Morphology Normal, Macrocytosis 1+ 06/21/20 05:18: Sodium 134 L, Potassium 3.3 L, Chloride 99, Carbon Dioxide 24, Anion Gap 14.3, BUN 60 H, Creatinine 1.70 H D, Estimated Creat Clear 59, Estimated GFR 30 L, Est GFR ( Amer) 36 L D, Glucose 319 H, Calcium 9.0 06/21/20 05:32: POC Glucose 329 H* 06/21/20 05:50: Specimen Source Right radial, O2 % 100%, ABG pH 7.30 L, ABG pCO2 47.2 H, ABG pO2 47.9 L, ABG HCO3 22.5, ABG Total CO2 24.0, ABG O2 Saturation 80 L*, ABG Base Excess -3.9 L, Gerry Test Patient unable, Vent Rate 18, Tidal Volume 420, PEEP 10 I & O for Last 24 hours: Intake & Output 06/18/20 06/19/20 06/20/20 06/21/20 23:59 23:59 23:59 23:59 Intake Total 2788 / 2835 2822.389 / 2907.389 3296.487 / 3410.487 2045.789 / 2045.789 Output Total 3340 / 3415 1645 / 1820 2740 / 2780 345 / 345 Balance -552 / -580 1177.389 / 1087.389 556.487 / 005.496 0251.789 / 1700.789 Weight 259 lb 4 oz 258 lb 8 oz 249 lb 8 oz 251 lb 7 oz Microbiology Reports for the Last 24 Hours: Microbiology 06/17/20 11:30 Bronchial Washings Gram Stain - Final 06/17/20 11:30 Bronchial Washings Bronchoalveolar Lavage Culture - Preliminary - Constitutional severe distress - *Routine HEENT Exam Head: Present: normocephalic, atraumatic - *Routine Neck Exam Present: supple. Absent: lymphadenopathy, thyromegaly - *Routine Respiratory Exam Present: patient mechanically ventilated, rhonchi Comments: Bilateral coarse breath sounds. - *Routine Cardiovascular Exam Present: RRR, Normal S1, Normal S2 - *Routine Abdominal Exam Present: normoactive bowel sounds. Absent: tenderness, distended, rebound, guarding - *Routine Extremities Exam Absent: cyanosis, clubbing, edema Assessment and Plan (1) Acute respiratory failure Current visit: Yes Status: Acute Qualifiers: Respiratory failure complication: hypoxia Qualified Code(s): J96.01 - Acute respiratory failure with hypoxia Category: Medical Code(s): J96.00 - Acute respiratory failure, unspecified whether with hypoxia or hypercapnia (2) Pneumonia Current visit: No Status: Acute Qualifiers: Pneumonia type: due to unspecified organism Laterality: right Lung location: lower lobe of lung Qualified Code(s): J18.9 - Pneumonia, unspecified organism Category: Medical Code(s): J18.9 - Pneumonia, unspecified organism (3) Shortness of breath Current visit: Yes Status: Acute Category: Medical Code(s): R06.02 - Shortness of breath (4) Fatigue Current visit: Yes Status: Acute Qualifiers: Fatigue type: unspecified Qualified Code(s): R53.83 - Other fatigue Category: Medical Code(s): R53.83 - Other fatigue (5) Weakness Current visit: Yes Status: Acute Category: Medical Code(s): R53.1 - Weakness (6) AICD (automatic cardiove
--- NOTE | 2020-06-21 14:18 | PC.NURSE ---
Addendum entered by Anila Gonzáles RN 06/21/20 14:31: 1340: magnet taped over AICD/pacemaker. Explanation given to daughter. Original Note: late entries: 1340: verified LW and HCS documentation with Dr. Martino. HCS is daughter, Karon Paredes. Made copies of documentation for pt's chart. 1350: 1mg Versed given via right chest wall mediport. Verified dose with Dr. Pack, who is @ BS with daughter and cisco administrator. Propofol gtt and Levophed gtts turned OFF. 1353: pt terminally extubated per RT. Pt was comfortable without s/s of resp distress. 1400: 1mg Versed given via right chest wall mediport. Verified dose with Dr. Pack, who continues to be @ BS. Pt continues with a pulse secondary to pacemaker.
--- NOTE | 2020-06-21 14:29 | PC.NURSE ---
Versed 2mg given via right chest wall mediport. Verified with Dr. Pack, who continues @ BS along with daughter and hearing therapy teacher. Pacemaker still continues to produce a HR. O2 sat cannot be obtained on tele or datascope.
--- NOTE | 2020-06-21 14:38 | PC.NURSE ---
TOD called @ [phone] Pack
--- NOTE | 2020-06-21 14:46 | HMH.DEADDC ---
Discharge Sum: Prov - Provider Primary care physician: Ray Pack MD Visit Care Team Role Provider Type Shailesh Roberts MD Other Providers Staff Physician Jose David Kimball MD Other Providers Staff Physician Mahesh Fontanez MD Other Providers Staff Physician Abbie Burden, DOT COMPLIANCE COORDINATOR Other Providers Nurse Practitioner SONIA Moreno Other Providers Physician Hot Plate Press Operator Hilaria Severino MD Other Providers Staff Physician Orin Joyner, DOT COMPLIANCE COORDINATOR Other Providers Nurse Practitioner Hanna Thomas APRN Other Providers Nurse Practitioner Wendy Green DO Emergency Provider ER Physician Ray Pack MD Attending Provider Staff Physician Primary Care Provider Dyllan Dutta MD Admit Provider Staff Physician Admitting clinician: Ray Pack Attending physician on admission: Ray Pack Consults: 06/12/20 12:53 Consult to Case Management [CONS] Routine Reason For Consult: placement for short term rehab 06/12/20 12:54 Pulmonology Consult [Consult to Pulmonology] [CONS] Routine Consulting Provider: Jose David Kimball Reason For Consult: readmission, ongoing dyspnea 06/14/20 08:15 Consult to Behavioral Health [CONS] Routine Consulting Provider: Abbie Burden Reason For Consult: depression,anxiety 06/15/20 13:25 Cardiology Consult [Consult to Cardiology] [CONS] Routine Consulting Provider: Cardiology Reason For Consult: CHF 06/16/20 16:18 Consult to Physician [CONS] Routine Consulting Provider: Shailesh Roberts Reason For Consult: vent management 06/17/20 08:54 Consult to Oncology [CONS] Routine Consulting Provider: Hilaria Severino Reason For Consult: SHE IS A PT OF DR RINCON PARTNER, DR BOLANOS AT [facility]. RECENT DIAGNOSIS OF LUNG METS, PRIMARY BREAST CANCER 06/17/20 10:39 Nutrition Consult [CONS] Routine Comment: Reason for Nutrition Consult: Tube Feeding, Initiate Pronouncing clinician: Ray Pack Discharge Sum: Summary - Date and Time Date of admission: 06/11/20 20:49 - Additional Data Confirmation of as documented by pronouncing clinician: no pulse, no respirations, no heart sounds Family: at bedside Additional persons at bedside: proposal development manager Attending/PCP notified?: Yes Attending physician: Ray Pack MD Was code activated?: No Autopsy requested?: No chief bank examiner notified?: No Organ bank notified?: Yes Advance directives: Yes Hospice patient?: No
--- NOTE | 2020-06-21 14:55 | PC.NURSE ---
updated [facility] @ 1523. Spoke to Alice. Informed her that TOD is 1438. Gave her all requested information. [facility] rep states that pt is a candidate for cornea donation.
--- NOTE | 2020-06-21 15:45 | PC.NURSE ---
received call from [facility] Amato) stating that eye prep needs to be done and ice packs need to be placed in bilateral arm pits and on chest. Verbalized understanding. Corneas will be harvested at [facility] in [place].
--- NOTE | 2020-06-21 15:59 | PC.NURSE ---
received call from [facility] CARL[facility] (Gildardo) stating that she now has a pharmacy laboratory technician enroute to harvest corneas. Bet Taker will be here in 1-2hrs. Alcie asked that I continue with eye prep and ice placement on chest and under armpits. [facility] will not be contacted until cornea harvest complete. Daughter @ BS and updated.
--- NOTE | 2020-06-21 19:11 | PC.NURSE ---
report given to jesus
--- NOTE | 2020-06-21 20:19 | PC.NURSE ---
patient left with home staff @ 20:18.
[2020-06-22 18:04] LABS: POC Glucose,Bedside 296 (70-110)
--- NOTE | 2020-08-30 17:30 | [facility].DCSUM ---
General - General Admission date:: 06/11/20 Discharge date: 06/21/20 HPI HPI: Patient was recently admitted and discharged for pneumonia and progressive dyspnea. Immediately upon discharge she experienced a bout of severe weakness, was reevaluated in the emergency room and subsequently readmitted. An infiltrative process was noted on chest x-ray, along with desaturations. Further imaging and evaluation revealed significant intrathoracic lymphadenopathy consistent with metastatic cancer. This is most likely from her breast cancer, she is status post resection with adjuvant chemo and XRT. She did have several positive nodes. She is actively followed by her oncologist in [facility]. Plans were made from pulmonary senior treasury consultant to proceed with EBUS. Patient is extremely anxious over CT findings, and is very weakened, likely has become deconditioned. Prior to this hospital stay she had been a week in [place]. She has not been eating well, experiencing lots of nausea. HPI narrative: 64-year-old female presenting to the emergency department with weakness and shortness of breath. She was being discharged from the hospital when the episode happened. She was in her car getting ready to drive home. Could not figure out how to start her oxygen, uses 4L at all times. She felt short of breath, hot, sweaty, distressed. She was unable to stand. She tonked her car horn for help. Patient was admitted for shortness of breath, treated for pneumonia. Was also found to have recurrence of breast cancer with lung metastases. While in the emergency department she continues to feel somewhat short of breath and fatigued. Does not think she would be able to stand or walk or take care of herself at home. She lives alone. We will consider options for short-term placement for rehabilitation. Hospital Course Hospital Course: Pt worsened. Increasing dyspnea/hypoxia Intubated Septic, required pressor support Decision was made with the family to extubate. Pt shortly thereafter Objective Vital signs: Temp Pulse Resp BP Pulse Ox 97.7 F 88 33 H 96/57 L 90 L 06/21/20 12:00 06/21/20 13:00 06/21/20 13:00 06/21/20 13:00 06/21/20 13:00 no acute distress, obtunded - *Routine HEENT Exam Head: Present: normocephalic Eye: Present: EOMI, PERRL ENT: Present: mucous membranes moist - *Routine Neck Exam Absent: normal carotid upstroke - *Routine Respiratory Exam Present: patient mechanically ventilated, other - *Routine Cardiovascular Exam Present: RRR, other - *Routine Extremities Exam Present: extremity cold to touch. Absent: cyanosis, clubbing, edema - *Routine Skin Exam Present: mottling, warm. 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 (10) Erosive osteoarthritis of multiple sites Status: Chronic (11) History of chemotherapy Status: Chronic (12) History of external beam radiation therapy Status: Chronic (13) Metastatic breast cancer Status: Chronic (14) Status post knee replacement Status: Chronic (15) Hyponatremia Status: Acute Discharge Plan - Patient Discharge Instructions Patient Instructions: Vancomycin-Resistant Enterococci Infection, DI for Fatigue, DI for Shortness of Breath, DI for Muscle Weakness, DI for Multiple Drug-resistant Organism (MDRO) Infection - Follow up Plan Disposition: Home Medications: Home Medications Medication Instructions Recorded Confirmed Type allopurinol 300 mg tablet 300 mg PO DAILY 04/19/20 0
== END 2020-06-21 20:18 | disposition expired | DRG 207 ==
LOC: ER 19:06 → 2ND 06-14 06:25
PROVIDERS: Internal Medicine Adolescent Medicine; Internal Medicine Pulmonary Disease; Nurse Practitioner Family; Admitting Provider Internal Medicine Adolescent Medicine; Emergency Provider Emergency Medicine; PCP Family Medicine; Visit Provider Family Medicine
DX: J18.9 Pneumonia, unspecified organism (principal); J96.01 Acute respiratory failure with hypoxia; R65.21 Severe sepsis with septic shock; I13.0 Hypertensive heart and chronic kidney disease with heart failure and stage 1 through stage 4 chronic kidney disease, or unspecified chronic kidney disease; N17.9 Acute kidney failure, unspecified; B33.22 Viral myocarditis; I43 Cardiomyopathy in diseases classified elsewhere; E87.1 Hypo-osmolality and hyponatremia; C78.00 Secondary malignant neoplasm of unspecified lung; E11.9 Type 2 diabetes mellitus without complications; N18.2 Chronic kidney disease, stage 2 (mild); I50.9 Heart failure, unspecified; I27.20 Pulmonary hypertension, unspecified; C50.412 Malignant neoplasm of upper-outer quadrant of left female breast; Z95.810 Presence of automatic (implantable) cardiac defibrillator; Z96.653 Presence of artificial knee joint, bilateral; G89.28 Other chronic postprocedural pain; M15.4 Erosive (osteo)arthritis; E87.6 Hypokalemia; Z99.81 Dependence on supplemental oxygen; Z79.84 Long term (current) use of oral hypoglycemic drugs; Z79.82 Long term (current) use of aspirin; Z79.52 Long term (current) use of systemic steroids; Z79.899 Other long term (current) drug therapy; Z88.8 Allergy status to other drugs, medicaments and biological substances; Z90.13 Acquired absence of bilateral breasts and nipples
CPT/HCPCS: 31500; 94002; 31624; 36415; 71045; 71046; 71275; 74019; 80048; 80053; 80202; 81001; 82330; 82803; 82962; 83605; 83615; 83690; 83735; 84100; 84478; 85007; 85025; 86328; 86713; 87040; 87070; 87077; 87081; 87086; 87088; 87102; 87116; 87186; 87205; 87206; 87305; 87486; 87581; 87633; 87798; 87899; 88112; 88312; 89051; 93005; 93306; 93970; 94003; 94640; 94660; 94760; 94761; 97110; 97161; 97165; 97530; 97535; 99284; G0378; J1642; J1956; J2020; J2543; J2704; J3370; Q9967